=== PATIENT | male | born 1960 | race Caucasian/White ===

== ENCOUNTER → 2017-04-04 09:55 | Outpatient (CLI) | payer OTHER, SELFPAY ==
--- NOTE | 2017-04-04 10:18 | EKG12_ITS ---
Test Reason : PREOP Blood Pressure : / mmHG Vent. Rate : 070 BPM Atrial Rate : 070 BPM P-R Int : 130 ms QRS Dur : 092 ms QT Int : 368 ms P-R-T Axes : 068 001 000 degrees QTc Int : 397 ms Normal sinus rhythm Normal ECG Confirmed by URSZULA LEON, RONNA ([id number]), newspaper photo editor NURYS OCHOA ([id number]) on 04/06/2017 11:29:26 AM Referred By: Loren Gaitan Confirmed By:RONNA SEAMAN MD
[2017-04-04 10:31] LABS: Hematocrit 41.1 % (40-54); Hemoglobin 14.3 g/dl (13.0-16.5); Mean Corp Hgb Conc 34.8 g/gl (32-36); Mean Corpuscular Hgb 31.5 pg (27.0-32.0); Mean Corpuscular Volume 90.5 fL (80-94); Platelet Count 180 K/mm3 (150-450); RBC Distribution Width CV 12.8 % (11.6-14.6); RBC Distribution Width SD 42.1 fl (35.1-43.9); Red Blood Count 4.54 M/mm3 (4.6-6.2); White Blood Count 5.7 K/mm3 (4.4-11.0)
[2017-04-04 10:32] LABS: Scan Indicated on CBC? Y/N NO
[2017-04-04 10:49] LABS: Hemoglobin A1c 7.7 % (4.2-6.3)
[2017-04-04 10:59] LABS: ALB/GLOB Ratio 1.1 RATIO (0.9-2.4); AST(SGOT) 20 U/L (15-37); Alanine Aminotransfer ALT/SGPT 29 U/L (16-61); Albumin, Serum 3.8 g/dL (3.2-5.0); Alkaline Phosphatase 74 U/L (45-117); Anion Gap 6 (5-15); BUN 14 mg/dL (7-18); BUN/Creat Ratio 15.2 RATIO (10-20); Calcium,Total 9.1 mg/dL (8.5-10.1); Chloride 105 mmol/L (98-107); Creatinine, Serum 0.92 mg/dL (0.70-1.30); EST Glomerular Filtration Rate 90 mL/min (>60); Est Glom Filt Rate - Afr Amer 109 mL/min (>60); Globulin 3.4 g/dL (2.2-4.2); Glucose 151 mg/dL (70-110); Potassium 4.7 mmol/L (3.5-5.1); Protein, Total 7.2 g/dL (6.4-8.2); Sodium Level 139 mmol/L (136-145)
== END ==
PROVIDERS: Nurse Practitioner; Family Provider Family Medicine; PCP Family Medicine; Visit Provider Orthopaedic Surgery
DX: Z01.818 Encounter for other preprocedural examination (principal); Z01.810 Encounter for preprocedural cardiovascular examination; E11.9 Type 2 diabetes mellitus without complications
CPT/HCPCS: 36415; 80053; 83036; 85027; 93005

== ENCOUNTER → 2017-06-13 15:47 | Outpatient (CLI) | payer OTHER, SELFPAY ==
[2017-06-13 18:15] LABS: Absolute Lymphocyte Count 2.01 X10^3/ul (0.83-4.51); Absolute Neutrophil Count 2.6 X10^3/uL (2.0-7.7); Basophil# 0.03 X10^3/uL; Basophil% 0.6 % (0-1); Eosinophil# 0.23 X10^3/uL; Eosinophils% 4.2 % (0-5); Hemoglobin 14.3 g/dl (13.0-16.5); Lymphocyte # 2.01 X10^3/ul (4.0); Lymphocyte % 36.9 % (19-41); Mean Corp Hgb Conc 34.9 g/gl (32-36); Mean Corpuscular Hgb 31.1 pg (27.0-32.0); Mean Corpuscular Volume 89.1 fL (80-94); Mean Platelet Vol. 10.3 fl (6.2-12.0); Monocyte# 0.61 X10^3/uL; Monocyte% 11.2 % (0-10); Neutrophil # 2.56 X10^3/uL (2.7-7.7); Neutrophil % 46.9 % (47-70); Platelet Count 202 K/mm3 (150-450); RBC Distribution Width CV 12.8 % (11.6-14.6); RBC Distribution Width SD 41.3 fl (35.1-43.9); White Blood Count 5.5 K/mm3 (4.4-11.0)
[2017-06-13 18:20] LABS: POSITIVE COUNT NO; POSITIVE DIFFERENTIAL NO; POSITIVE MORPHOLOGY NO
[2017-06-13 19:42] LABS: AST(SGOT) 16 U/L (15-37); Alanine Aminotransfer ALT/SGPT 26 U/L (16-61); Albumin, Serum 3.9 g/dL (3.2-5.0); Alkaline Phosphatase 99 U/L (45-117); Bilirubin, Direct 0.12 mg/dL (0.00-0.30); Globulin 3.7 g/dL (2.2-4.2); Protein, Total 7.6 g/dL (6.4-8.2)
[2017-06-15 14:08] LABS: QNTFERON TB Ag Minus Nil Value 0.07 IU/mL (.); QNTFERON TB Mitogen Value > 10.00 IU/mL (.); QNTFERON TB Nil Value 0.03 IU/mL (.)
[2017-06-16 08:42] LABS: QNTIFERON TB Gold Negative (Negative)
== END ==
PROVIDERS: Family Provider Family Medicine; PCP Family Medicine; Visit Provider Dermatology
DX: L40.8 Other psoriasis (principal); Z79.899 Other long term (current) drug therapy
CPT/HCPCS: 36415; 80076; 85025; 86480

== ENCOUNTER → 2017-12-02 10:12 | Outpatient (CLI) | payer OTHER, SELFPAY ==
[2017-12-02 11:46] LABS: Microalbumin,Random Urine 91.4 mg/L (NO RANGE EST.); Microalbumin:Creatinine Ratio 39.7 mg/g CRE (<30 mg/g CRE)
[2017-12-02 11:51] LABS: AST(SGOT) 16 U/L (15-37); Alanine Aminotransfer ALT/SGPT 27 U/L (16-61); Albumin, Serum 3.6 g/dL (3.2-5.0); Alkaline Phosphatase 79 U/L (45-117); Anion Gap 5 (5-15); BUN 12 mg/dL (7-18); BUN/Creat Ratio 12.2 RATIO (10-20); Calcium,Total 8.5 mg/dL (8.5-10.1); Chloride 105 mmol/L (98-107); Cholesterol 213 mg/dL (200); Creatinine, Serum 0.99 mg/dL (0.70-1.30); EST Glomerular Filtration Rate 83 mL/min (>60); Est Glom Filt Rate - Afr Amer 101 mL/min (>60); Globulin 3.5 g/dL (2.2-4.2); Glucose 169 mg/dL (74-106); High Density Lipoprotein 48 mg/dL; Potassium 4.3 mmol/L (3.5-5.1); Protein, Total 7.1 g/dL (6.4-8.2); Sodium Level 141 mmol/L (136-145); Triglycerides 101 mg/dL; Very Low Density Lipoprotein 20 mg/dL (5-40)
[2017-12-02 11:56] LABS: Hemoglobin A1c 7.8 % (4.2-6.3)
== END ==
PROVIDERS: Family Provider Family Medicine; PCP Family Medicine; Referring Provider Nurse Practitioner; Visit Provider Nurse Practitioner
DX: E11.9 Type 2 diabetes mellitus without complications (principal)
CPT/HCPCS: 36415; 80053; 80061; 82043; 82570; 83036

== ENCOUNTER → 2017-12-11 14:38 | Outpatient (CLI) | payer OTHER, SELFPAY ==
--- NOTE | 2017-12-11 14:42 | RAD_ITS ---
STUDY: X-RAY CHEST REASON FOR EXAM: Male, 57 years old. Cold symptoms TECHNIQUE: PA and lateral views of the chest. COMPARISON: December 19, 2016 chest x-ray FINDINGS: There are scattered areas of lucency which may represent underlying emphysematous change. There is a subtle nodular density in the right lower lobe that measures 5 mm. This may represent summation of shadows or possible small nodule. There is minimal lingular atelectasis and/or scarring stable in appearance when compared to prior study. There is no demonstrated pleural abnormality. Normal size heart. Normal mediastinum and jennifer. Normal visualized pulmonary arteries. Normal visualized aortic arch and descending thoracic aorta. Normal visualized thoracic spine. Normal visualized ribs, clavicles, and shoulders. There is no demonstrated abnormality of the visualized soft tissue structures of the upper abdomen. RAD/Chest PA and Lateral IMPRESSION: Interval visualization of 5 mm nodule right lower lobe. No definitive focal consolidation. Findings suggest underlying chronic interstitial lung changes possible chronic obstructive pulmonary disease. Recommend consideration for follow-up noncontrast CT chest. Electronically Signed: Maye Marshall MD at 17:01 EDT Tel , Service support ,
[2017-12-11 15:35] LABS: Absolute Lymphocyte Count 2.49 X10^3/ul (0.83-4.51); Absolute Neutrophil Count 2.7 X10^3/uL (2.0-7.7); Basophil# 0.03 X10^3/uL; Basophil% 0.5 % (0-1); Eosinophil# 0.13 X10^3/uL; Eosinophils% 2.2 % (0-5); Hematocrit 43.9 % (40-54); Hemoglobin 14.7 g/dl (13.0-16.5); Lymphocyte # 2.49 X10^3/ul (4.0); Lymphocyte % 42.2 % (19-41); Mean Corp Hgb Conc 33.5 g/gl (32-36); Mean Corpuscular Hgb 30.6 pg (27.0-32.0); Mean Corpuscular Volume 91.3 fL (80-94); Mean Platelet Vol. 9.9 fl (6.2-12.0); Monocyte# 0.58 X10^3/uL; Monocyte% 9.8 % (0-10); Neutrophil # 2.67 X10^3/uL (2.7-7.7); Neutrophil % 45.3 % (47-70); Platelet Count 165 K/mm3 (150-450); RBC Distribution Width SD 43.1 fl (35.1-43.9); Red Blood Count 4.81 M/mm3 (4.6-6.2); White Blood Count 5.9 K/mm3 (4.4-11.0)
[2017-12-11 15:41] LABS: POSITIVE COUNT NO; POSITIVE DIFFERENTIAL NO; POSITIVE MORPHOLOGY NO
[2017-12-11 15:55] LABS: AST(SGOT) 14 U/L (15-37); Alanine Aminotransfer ALT/SGPT 28 U/L (16-61); Albumin, Serum 3.8 g/dL (3.2-5.0); Alkaline Phosphatase 91 U/L (45-117); Bilirubin, Direct 0.16 mg/dL (0.00-0.30); Globulin 3.8 g/dL (2.2-4.2); Protein, Total 7.6 g/dL (6.4-8.2)
[2017-12-13 20:07] LABS: HCV Quant. RNA PCR HCV Not Detected IU/mL (.)
== END ==
PROVIDERS: Family Provider Family Medicine; PCP Family Medicine; Referring Provider Dermatology; Visit Provider Dermatology
DX: Z79.899 Other long term (current) drug therapy (principal); L40.0 Psoriasis vulgaris; L30.4 Erythema intertrigo
CPT/HCPCS: 36415; 71046; 80076; 85025; 87522

== ENCOUNTER → 2018-04-21 10:10 | Outpatient (CLI) | payer OTHER, SELFPAY ==
[2018-01-31 15:50] VITALS: BMI 32.0
[2018-04-21 10:19] LABS: Bacteria 0 SEEN /hpf (None Seen); Mucous, Urine 0 SEEN /hpf (<or=2+); Red Blood Cells-Urine 0 SEEN /hpf (0-5); Squamous Epithelial Cells - UA 0 SEEN /hpf (0-5); White Blood Cells 0 SEEN /hpf (0-5)
[2018-04-21 11:33] LABS: Hemoglobin A1c 8.8 % (4.2-6.3)
[2018-04-21 11:37] LABS: Microalbumin:Creatinine Ratio 78.6 mg/g CRE (<30 mg/g CRE)
[2018-04-21 11:50] LABS: AST(SGOT) 13 U/L (15-37); Alanine Aminotransfer ALT/SGPT 27 U/L (16-61); Albumin, Serum 3.6 g/dL (3.2-5.0); Alkaline Phosphatase 81 U/L (45-117); Anion Gap 5 (5-15); BUN 12 mg/dL (7-18); BUN/Creat Ratio 12.8 RATIO (10-20); Calcium,Total 8.9 mg/dL (8.5-10.1); Chloride 106 mmol/L (98-107); Cholesterol 209 mg/dL (200); Creatinine, Serum 0.94 mg/dL (0.70-1.30); EST Glomerular Filtration Rate 88 mL/min (>60); Est Glom Filt Rate - Afr Amer 106 mL/min (>60); Globulin 3.5 g/dL (2.2-4.2); Glucose 119 mg/dL (74-106); High Density Lipoprotein 55 mg/dL; Potassium 4.7 mmol/L (3.5-5.1); Protein, Total 7.1 g/dL (6.4-8.2); Sodium Level 142 mmol/L (136-145); Triglycerides 90 mg/dL; Very Low Density Lipoprotein 18 mg/dL (5-40)
[2018-04-21 12:08] LABS: Color, Urine Yellow (Yellow); Glucose, Dipstick Normal (Normal); Ketone-Dipstick Negative (Negative); Leukocyte Esterase-Dipstick Negative /ul (Negative); Nitrite-Dipstick Negative (Negative); Occult Blood-Urine 10 /ul (Negative); Protein-Dipstick 30 mg/dl (Negative); Specific Gravity, Urine 1.015 (1.002-1.030); Urine Bilirubin Dipstick Negative (Negative); Urine Clarity Clear (Clear); Urine Urobilinogen Normal (Normal)
[2018-04-21 12:14] LABS: Yeast-Urine RARE /hpf (None Seen)
== END ==
PROVIDERS: Family Provider Family Medicine; PCP Family Medicine; Referring Provider Nurse Practitioner; Visit Provider Nurse Practitioner
DX: E11.9 Type 2 diabetes mellitus without complications (principal)
CPT/HCPCS: 36415; 80053; 80061; 81001; 82043; 82570; 83036

== ENCOUNTER → 2018-06-08 10:54 | Outpatient (CLI) | payer OTHER, SELFPAY ==
[2018-04-30 15:19] VITALS: BMI 32.0
--- NOTE | 2018-06-08 11:08 | RAD_ITS ---
STUDY: X-RAY CHEST REASON FOR EXAM: Male, 58 years old. Long-term medication therapy TECHNIQUE: PA and lateral views of the chest. COMPARISON: 12/11/2017 FINDINGS: Coarsened interstitial lung markings in the lung bases similar since the prior study. Nodular density in the right lung base evident on the prior exam is not clearly documented on the current study. There is no demonstrated pleural abnormality. Normal size heart. Normal mediastinum and jennifer. Normal visualized pulmonary arteries. Normal visualized aortic arch and descending thoracic aorta. There is demineralization of the osseous structures. Normal visualized ribs, clavicles, and shoulders. There is no demonstrated abnormality of the visualized soft tissue structures of the upper abdomen. RAD/Chest PA and Lateral IMPRESSION: 1. Stable mild fibrotic changes in the lung bases. 2. No airspace consolidation. 3. 5 mm nodule documented on the prior x-ray is not clearly seen on the current exam. Electronically Signed: Travis Singh MD at 10:34 EDT , Service support ,
[2018-06-08 12:38] LABS: Absolute Lymphocyte Count 1.43 X10^3/ul (0.83-4.51); Absolute Neutrophil Count 3.2 X10^3/uL (2.0-7.7); Basophil# 0.01 X10^3/uL; Basophil% 0.2 % (0-1); Eosinophil# 0.06 X10^3/uL; Eosinophils% 1.1 % (0-5); Hematocrit 40.9 % (40-54); Hemoglobin 14.1 g/dl (13.0-16.5); Lymphocyte # 1.43 X10^3/ul (4.0); Mean Corp Hgb Conc 34.5 g/gl (32-36); Mean Corpuscular Hgb 30.8 pg (27.0-32.0); Mean Corpuscular Volume 89.3 fL (80-94); Mean Platelet Vol. 10.2 fl (6.2-12.0); Monocyte# 0.59 X10^3/uL; Monocyte% 11.1 % (0-10); Neutrophil % 60.4 % (47-70); POSITIVE COUNT NO; POSITIVE DIFFERENTIAL NO; POSITIVE MORPHOLOGY NO; Platelet Count 196 K/mm3 (150-450); RBC Distribution Width CV 12.9 % (11.6-14.6); RBC Distribution Width SD 41.9 fl (35.1-43.9); Red Blood Count 4.58 M/mm3 (4.6-6.2); White Blood Count 5.3 K/mm3 (4.4-11.0)
[2018-06-08 12:58] LABS: AST(SGOT) 19 U/L (15-37); Alanine Aminotransfer ALT/SGPT 27 U/L (16-61); Albumin, Serum 3.7 g/dL (3.2-5.0); Alkaline Phosphatase 73 U/L (45-117); Bilirubin, Direct 0.14 mg/dL (0.00-0.30); Globulin 3.1 g/dL (2.2-4.2); Protein, Total 6.8 g/dL (6.4-8.2)
[2018-06-12 20:07] LABS: HCV Quant. RNA PCR HCV Not Detected IU/mL (.); QNTFERON TB Mitogen Value > 10.00 IU/mL (.); QNTFERON TB Nil Value 0.03 IU/mL (.); QNTFERON TB2+ Ag Value 0.13 IU/mL (.)
[2018-06-13 11:23] LABS: QNTIFERON TB Positive Criteria Negative (Negative)
== END ==
PROVIDERS: Family Provider Family Medicine; PCP Family Medicine; Referring Provider Dermatology; Visit Provider Dermatology
DX: Z79.899 Other long term (current) drug therapy (principal); L40.0 Psoriasis vulgaris
CPT/HCPCS: 36415; 71046; 80076; 85025; 86480; 87522

== ENCOUNTER → 2018-11-19 16:50 | Outpatient (CLI) | payer OTHER, SELFPAY ==
[2018-04-30 15:19] VITALS: BMI 32.0
--- NOTE | 2018-11-19 17:02 | EKG12_ITS ---
Test Reason : PRE OP Blood Pressure : / mmHG Vent. Rate : 063 BPM Atrial Rate : 063 BPM P-R Int : 140 ms QRS Dur : 092 ms QT Int : 394 ms P-R-T Axes : 020 000 014 degrees QTc Int : 403 ms Sinus rhythm with occasional Premature ventricular complexes Minimal voltage criteria for LVH, may be normal variant Borderline ECG Confirmed by URSZULA LEON, RONNA ([id number]), video effects editor VILLA AVILEZ ([id number]) on 11/21/2018 1:58:05 PM Referred By: Timi Christian Confirmed By:RONNA SEAMAN MD
[2018-11-19 17:26] LABS: Hematocrit 41.5 % (40-54); Hemoglobin 14.1 g/dL (13.0-16.5); Mean Corpuscular Hgb 31.2 pg (27.0-32.0); Mean Corpuscular Volume 91.8 fL (80-94); Platelet Count 194 K/mm3 (150-450); RBC Distribution Width CV 12.5 % (11.6-14.6); RBC Distribution Width SD 41.9 fl (35.1-43.9); Red Blood Count 4.52 M/mm3 (4.6-6.2); White Blood Count 7.2 K/mm3 (4.4-11.0)
[2018-11-19 18:21] LABS: Anion Gap 4 (5-15); BUN 17 mg/dL (7-18); BUN/Creat Ratio 14.2 RATIO (10-20); Calcium,Total 9.5 mg/dL (8.5-10.1); Chloride 103 mmol/L (98-107); EST Glomerular Filtration Rate 66 mL/min (>60); Est Glom Filt Rate - Afr Amer 80 mL/min (>60); Glucose 126 mg/dL (74-106); Potassium 4.1 mmol/L (3.5-5.1); Sodium Level 136 mmol/L (136-145)
== END ==
PROVIDERS: Orthopaedic Surgery; Family Provider Family Medicine; PCP Family Medicine; Referring Provider Physician Assistant; Visit Provider Physician Assistant
DX: Z01.818 Encounter for other preprocedural examination (principal); Z01.810 Encounter for preprocedural cardiovascular examination
CPT/HCPCS: 36415; 80048; 85027; 93005

== ENCOUNTER → 2018-11-23 15:22 | Outpatient (CLI) | payer OTHER, SELFPAY ==
[2018-04-30 15:19] VITALS: BMI 32.0
== END ==
PROVIDERS: Family Provider Family Medicine; PCP Family Medicine; Referring Provider Orthopaedic Surgery; Visit Provider Orthopaedic Surgery
DX: M65.342 Trigger finger, left ring finger (principal); R22.32 Localized swelling, mass and lump, left upper limb

== ENCOUNTER → 2018-11-26 07:15 | Outpatient (CLI) | payer OTHER, SELFPAY ==
[2018-04-30 15:19] VITALS: BMI 32.0
--- NOTE | 2018-11-23 11:23 | MASS_PTH ---
PATIENT: ANKITA GARCIA LOC: [facility] U#:[id number] AGE/SX: 64/M ROOM: RE11/26/[address]: GILMA Anaya : 1960 BED: DIS: SPEC #: [id number] RECD: 11/23/18 15:13 STATUS: BHARAT YESICA #: [id number] GROVER: 11/23/18 11:[address]: Vasile Sena DEPT: SURGICAL PATHOLOGY RECD BY: Wilmer Gillette ENTERED: 11/26/18 12:16 SP TYPE: Mass OTHR DR: Dr. Solis Harrington, GILMA Bueno Tissues: Hand, NOS Procedures: Surgery Specimen Level IV HEADER OPERATION: Trigger finger release left ring finger, excision of palm mass PRE-OP DIAGNOSIS: Trigger finger with mass left ring finger TISSUE SUBMITTED: Mass left palm MICROSCOPIC DIAGNOSIS Mass of left palm, biopsy: Fibrosis. See comment. AM:cecil 11/27/18 COMMENT The findings may be consistent with focal fibromatosis. Clinical correlation is suggested. MICROSCOPIC DESCRIPTION Slides are reviewed. GROSS DESCRIPTION Received in fixative is one container labeled with the patient's name and designated left palm mass. The specimen consists of two pieces of li soft tissue that in aggregate measure 1 x 0.5 x 0.3 cm. The entire specimen is submitted in one cassette. / SJ:cecil 11/26/18 TC:5 CPT: 54720
[2018-11-26 09:20] LABS: AST(SGOT) 11 U/L (15-37); Alanine Aminotransfer ALT/SGPT 23 U/L (16-61); Albumin, Serum 3.8 g/dL (3.2-5.0); Alkaline Phosphatase 86 U/L (45-117); Anion Gap 7 (5-15); BUN 11 mg/dL (7-18); BUN/Creat Ratio 11.2 RATIO (10-20); Calcium,Total 9.3 mg/dL (8.5-10.1); Chloride 105 mmol/L (98-107); Creatinine, Serum 0.98 mg/dL (0.70-1.30); EST Glomerular Filtration Rate 83 mL/min (>60); Est Glom Filt Rate - Afr Amer 100 mL/min (>60); Globulin 3.8 g/dL (2.2-4.2); Glucose 191 mg/dL (74-106); Protein, Total 7.6 g/dL (6.4-8.2); Sodium Level 140 mmol/L (136-145)
[2018-11-26 09:33] LABS: Hemoglobin A1c 7.4 % (4.2-6.3)
== END ==
LOC: LAB.FUTURE 07:17 → LAB 07:20
PROVIDERS: Family Provider Family Medicine; PCP Family Medicine; Referring Provider Nurse Practitioner; Visit Provider Nurse Practitioner
DX: M65.342 Trigger finger, left ring finger (principal); R22.32 Localized swelling, mass and lump, left upper limb; E11.9 Type 2 diabetes mellitus without complications
CPT/HCPCS: 36415; 80053; 83036; 88305

== ENCOUNTER → 2019-02-14 16:03 | Outpatient (CLI) | payer OTHER, SELFPAY ==
[2018-04-30 15:19] VITALS: BMI 32.0
== END ==
PROVIDERS: Family Provider Family Medicine; PCP Family Medicine; Visit Provider Family Medicine
DX: J06.9 Acute upper respiratory infection, unspecified (principal)
CPT/HCPCS: 87633

== ENCOUNTER → 2019-03-20 15:47 | Outpatient (CLI) | payer OTHER, SELFPAY ==
[2018-04-30 15:19] VITALS: BMI 32.0
[2019-03-20 17:30] LABS: Absolute Lymphocyte Count 1.87 X10^3/uL (0.83-4.51); Basophil# 0.05 X10^3/uL; Basophil% 0.9 % (0-1); Eosinophil# 0.14 X10^3/uL; Eosinophils% 2.5 % (0-5); Hematocrit 37.5 % (40-54); Hemoglobin 12.9 g/dL (13.0-16.5); Lymphocyte # 1.87 X10^3/ul (4.0); Lymphocyte % 33.3 % (19-41); Mean Corp Hgb Conc 34.4 g/dL (32-36); Mean Corpuscular Hgb 31.2 pg (27.0-32.0); Mean Corpuscular Volume 90.8 fL (80-94); Mean Platelet Vol. 9.8 fl (6.2-12.0); Monocyte% 10.7 % (0-10); NRBC Flagged by Analyzer 0 % (0-5); Neutrophil # 2.95 X10^3/uL (2.7-7.7); Neutrophil % 52.4 % (47-70); Platelet Count 201 K/mm3 (150-450); RBC Distribution Width CV 13.3 % (11.6-14.6); RBC Distribution Width SD 42.9 fl (35.1-43.9); Red Blood Count 4.13 M/mm3 (4.6-6.2); White Blood Count 5.6 K/mm3 (4.4-11.0)
[2019-03-20 17:53] LABS: AST(SGOT) 25 U/L (15-37); Alanine Aminotransfer ALT/SGPT 26 U/L (16-61); Albumin, Serum 3.8 g/dL (3.2-5.0); Alkaline Phosphatase 72 U/L (45-117); Anion Gap 3 (5-15); BUN 12 mg/dL (7-18); BUN/Creat Ratio 12.7 RATIO (10-20); Bilirubin, Direct 0.12 mg/dL (0.00-0.30); Calcium,Total 9.2 mg/dL (8.5-10.1); Chloride 108 mmol/L (98-107); Creatinine, Serum 0.94 mg/dL (0.70-1.30); EST Glomerular Filtration Rate 87 mL/min (>60); Est Glom Filt Rate - Afr Amer 105 mL/min (>60); Globulin 3.3 g/dL (2.2-4.2); Glucose 166 mg/dL (74-106); Potassium 3.8 mmol/L (3.5-5.1); Protein, Total 7.1 g/dL (6.4-8.2); Sodium Level 139 mmol/L (136-145)
== END ==
PROVIDERS: PCP Family Medicine; Referring Provider Dermatology; Visit Provider Dermatology
DX: L43.8 Other lichen planus (principal); Z79.899 Other long term (current) drug therapy
CPT/HCPCS: 36415; 80048; 80076; 85025

== ENCOUNTER → 2019-04-20 10:44 | Outpatient (CLI) | payer OTHER, SELFPAY ==
[2018-04-30 15:19] VITALS: BMI 32.0
[2019-04-20 11:08] LABS: Absolute Lymphocyte Count 1.49 X10^3/uL (0.83-4.51); Absolute Neutrophil Count 3.1 X10^3/uL (2.0-7.7); Basophil# 0.04 X10^3/uL; Basophil% 0.7 % (0-1); Eosinophils% 1.9 % (0-5); Hematocrit 42.6 % (40-54); Hemoglobin 14.3 g/dL (13.0-16.5); Lymphocyte # 1.49 X10^3/ul (4.0); Lymphocyte % 27.8 % (19-41); Mean Corp Hgb Conc 33.6 g/dL (32-36); Mean Corpuscular Hgb 31.4 pg (27.0-32.0); Mean Corpuscular Volume 93.6 fL (80-94); Mean Platelet Vol. 9.1 fl (6.2-12.0); Monocyte# 0.62 X10^3/uL; Monocyte% 11.6 % (0-10); NRBC Flagged by Analyzer 0 % (0-5); Neutrophil # 3.09 X10^3/uL (2.7-7.7); Neutrophil % 57.6 % (47-70); Platelet Count 207 K/mm3 (150-450); RBC Distribution Width CV 14.7 % (11.6-14.6); RBC Distribution Width SD 49.9 fl (35.1-43.9); Red Blood Count 4.55 M/mm3 (4.6-6.2); White Blood Count 5.4 K/mm3 (4.4-11.0)
[2019-04-20 11:21] LABS: Color, Urine Yellow (Yellow); Glucose, Dipstick Normal (Normal); Ketone-Dipstick Negative (Negative); Leukocyte Esterase-Dipstick Negative /ul (Negative); Nitrite-Dipstick Negative (Negative); Occult Blood-Urine Negative /ul (Negative); Protein-Dipstick 15 mg/dl (Negative); Specific Gravity, Urine 1.015 (1.002-1.030); Urine Bilirubin Dipstick Negative (Negative); Urine Clarity Clear (Clear); Urine Urobilinogen Normal (Normal)
[2019-04-20 11:26] LABS: Hemoglobin A1c 7.6 % (4.2-6.3)
[2019-04-20 11:28] LABS: Microalbumin,Random Urine 90.4 mg/L (NO RANGE EST.)
[2019-04-20 11:39] LABS: AST(SGOT) 12 U/L (15-37); Alanine Aminotransfer ALT/SGPT 25 U/L (16-61); Albumin, Serum 3.8 g/dL (3.2-5.0); Alkaline Phosphatase 75 U/L (45-117); Anion Gap 1 (5-15); BUN 10 mg/dL (7-18); BUN/Creat Ratio 9.5 RATIO (10-20); Bilirubin, Direct 0.15 mg/dL (0.00-0.30); Calcium,Total 9.2 mg/dL (8.5-10.1); Chloride 110 mmol/L (98-107); Creatinine, Serum 1.05 mg/dL (0.70-1.30); EST Glomerular Filtration Rate 77 mL/min (>60); Est Glom Filt Rate - Afr Amer 93 mL/min (>60); Globulin 3.5 g/dL (2.2-4.2); Glucose 119 mg/dL (74-106); Potassium 4.4 mmol/L (3.5-5.1); Protein, Total 7.3 g/dL (6.4-8.2); Sodium Level 143 mmol/L (136-145)
== END ==
PROVIDERS: Nurse Practitioner; Family Provider Family Medicine; PCP Family Medicine; Referring Provider Dermatology; Visit Provider Dermatology
DX: L43.8 Other lichen planus (principal); E11.9 Type 2 diabetes mellitus without complications; Z79.899 Other long term (current) drug therapy
CPT/HCPCS: 36415; 80048; 80076; 81002; 82043; 83036; 85025

== ENCOUNTER → 2019-07-26 08:19 | Outpatient (CLI) | payer OTHER, SELFPAY ==
[2018-04-30 15:19] VITALS: BMI 32.0
--- NOTE | 2019-07-26 08:57 | RAD_ITS ---
STUDY: X-RAY CHEST REASON FOR EXAM: Male, 59 years old. superintendent terminal drug therapy -- psoriasis vulgaris TECHNIQUE: Frontal and lateral views of the chest. COMPARISON: 06/08/2018 FINDINGS: Coarsened interstitial lung markings in the lung bases similar since the prior study. There is no demonstrated pleural abnormality. Normal size heart. Normal mediastinum and jennifer. Normal visualized pulmonary arteries. Normal visualized aortic arch and descending thoracic aorta. There is demineralization of the osseous structures. Normal visualized ribs, clavicles, and shoulders. There is no demonstrated abnormality of the visualized soft tissue structures of the upper abdomen. RAD/Chest PA and Lateral IMPRESSION: 1. Stable mild fibrotic changes in the lung bases. Electronically Signed: Que Wolff, at 10:12 EDT Tel , Service support ,
[2019-07-26 10:01] LABS: Absolute Lymphocyte Count 1.92 X10^3/uL (0.83-4.51); Absolute Neutrophil Count 3.1 X10^3/uL (2.0-7.7); Basophil# 0.05 X10^3/uL; Basophil% 0.9 % (0-1); Eosinophils% 1.7 % (0-5); Hematocrit 41.4 % (40-54); Hemoglobin 13.8 g/dL (13.0-16.5); Lymphocyte # 1.92 X10^3/ul (4.0); Lymphocyte % 32.9 % (19-41); Mean Corp Hgb Conc 33.3 g/dL (32-36); Mean Corpuscular Hgb 30.8 pg (27.0-32.0); Mean Corpuscular Volume 92.4 fL (80-94); Mean Platelet Vol. 10.7 fl (6.2-12.0); NRBC Flagged by Analyzer 0 % (0-5); Neutrophil # 3.06 X10^3/uL (2.7-7.7); Neutrophil % 52.3 % (47-70); Platelet Count 199 K/mm3 (150-450); RBC Distribution Width CV 12.5 % (11.6-14.6); RBC Distribution Width SD 42.3 fl (35.1-43.9); Red Blood Count 4.48 M/mm3 (4.6-6.2); White Blood Count 5.8 K/mm3 (4.4-11.0)
[2019-07-26 10:20] LABS: AST(SGOT) 13 U/L (15-37); Alanine Aminotransfer ALT/SGPT 23 U/L (16-61); Albumin, Serum 3.8 g/dL (3.2-5.0); Alkaline Phosphatase 76 U/L (45-117); Bilirubin, Direct 0.06 mg/dL (0.00-0.30); Globulin 3.4 g/dL (2.2-4.2); Protein, Total 7.2 g/dL (6.4-8.2)
[2019-07-31 14:08] LABS: QNTFERON TB Mitogen Value > 10.00 IU/mL (.); QNTFERON TB Nil Value 0.04 IU/mL (.); QNTFERON TB1+ Ag Value 0.48 IU/mL (.); QNTFERON TB2+ Ag Value 0.47 IU/mL (.)
[2019-08-01 12:00] LABS: QNTIFERON TB Positive Criteria Positive (Negative)
== END ==
PROVIDERS: PCP Family Medicine; Referring Provider Dermatology; Visit Provider Dermatology
DX: L40.0 Psoriasis vulgaris (principal); L43.8 Other lichen planus; Z79.899 Other long term (current) drug therapy
CPT/HCPCS: 36415; 71046; 80076; 85025; 86480; 87521

== ENCOUNTER → 2019-09-19 16:25 | Outpatient (CLI) | payer OTHER, SELFPAY ==
[2019-09-19 12:57] VITALS: BMI 30.6
[2019-09-19 17:54] LABS: AST(SGOT) 18 U/L (15-37); Alanine Aminotransfer ALT/SGPT 21 U/L (16-61); Albumin, Serum 4.1 g/dL (3.2-5.0); Alkaline Phosphatase 82 U/L (45-117); Bilirubin, Direct 0.12 mg/dL (0.00-0.30); Cholesterol 215 mg/dL (200); Globulin 3.6 g/dL (2.2-4.2); High Density Lipoprotein 52 mg/dL; Protein, Total 7.7 g/dL (6.4-8.2); Triglycerides 117 mg/dL; Very Low Density Lipoprotein 23 mg/dL (5-40)
== END ==
PROVIDERS: PCP Family Medicine; Referring Provider Internal Medicine Cardiovascular Disease; Visit Provider Internal Medicine Cardiovascular Disease
DX: E78.00 Pure hypercholesterolemia, unspecified (principal)
CPT/HCPCS: 36415; 80061; 80076

== ENCOUNTER → 2019-09-26 14:07 | Outpatient (CLI) | payer OTHER, SELFPAY ==
[2019-09-19 12:57] VITALS: BMI 30.6
== END ==
PROVIDERS: PCP Family Medicine; Referring Provider Internal Medicine Cardiovascular Disease; Visit Provider Internal Medicine Cardiovascular Disease
DX: R00.2 Palpitations (principal)
CPT/HCPCS: 93225; 93226

== ENCOUNTER → 2019-09-27 13:45 | Outpatient (CLI) | payer OTHER, SELFPAY ==
[2019-09-19 12:57] VITALS: BMI 30.6
--- NOTE | 2019-09-27 13:46 | ECHOD_ITS ---
Reason For Study: Arrhythmia Procedure This was a 2D Doppler, Color Flow transthoracic echocardiogram. Exam performed in department. Left Ventricle Normal LV size. The estimated ejection fraction is 53 %. Stage 1 diastolic dysfunction. No regional wall motion abnormalities noted. Right Ventricle Normal RV size. Normal systolic function. Atria The left atrium is moderately enlarged. Normal right atrium. Mitral Valve Equivocal mitral valve prolapse. Tricuspid Valve Normal tricuspid valve. Mild tricuspid valve insufficiency. Pulmonary artery systolic pressure is 28 mmHg. Aortic Valve Normal aortic valve. Trisinus/trileaflet aortic valve. Pulmonic Valve Normal pulmonic valve. Mild (1+) pulmonic valve insufficiency. Great Vessels Normal aortic root. The pulmonary artery is normal size. Normal inferior vena cava. Pericardium/Pleural No pericardial effusion. MMode/2D Measurements & Calculations LVIDd: 5.5 cm IVSd: 0.94 cm Ao root diam: 3.3 cm LVIDs: 3.9 cm LVPWd: 1.1 cm RVDd: 3.8 cm FS: 29.2 % LAV(MOD-bp): 95.7 ml LVAd ap4: 31.8 cm2 SV(MOD-sp4): 44.8 ml LAV(MOD-bp) Indexed: 41.8 ml/m2 EDV(MOD-sp4): 104.2 ml LAV(MOD-sp2): 96.7 ml EDV(sp4-el): 104.5 ml LAV(MOD-sp4): 85.4 ml LVAs ap4: 21.9 cm2 ESV(MOD-sp4): 59.5 ml ESV(sp4-el): 61.2 ml EF(MOD-sp4): 42.9 % EF(sp4-el): 41.4 % SV(sp4-el): 43.2 ml LA A4 area: 25.1 cm2 LA dimension(2D): 5.0 cm RA A4 area: 16.2 cm2 Doppler Measurements & Calculations MV E max marito: 52.4 cm/sec Lat Peak E' Marito: 10.0 cm/sec Med Peak E' Marito: 5.8 cm/sec MV A max marito: 61.6 cm/sec E/E' lat: 5.3 E/E' med: 9.0 MV E/A: 0.85 Ao V2 max: 124.1 cm/sec LV V1 max: 104.7 cm/sec PA V2 max: 112.5 cm/sec Ao max P.2 mmHg LV V1 max P.4 mmHg TR max marito: 244.4 cm/sec TR max P.9 mmHg Interpretation Summary Normal LV size. The estimated ejection fraction is 53 %. Stage 1 diastolic dysfunction. The left atrium is moderately enlarged. Mild tricuspid valve insufficiency. Ordering Physician: Clyde Smith Referring Physician: Solis Harrington Performed By: Sylvia Velasquez RDCS
== END ==
PROVIDERS: PCP Family Medicine; Referring Provider Internal Medicine Cardiovascular Disease; Visit Provider Internal Medicine Cardiovascular Disease
DX: I34.1 Nonrheumatic mitral (valve) prolapse (principal); R00.2 Palpitations
CPT/HCPCS: 93306

== ENCOUNTER → 2019-11-28 15:43 | Outpatient (CLI) | payer OTHER, SELFPAY ==
[2019-09-19 12:57] VITALS: BMI 30.6
[2019-11-28 17:02] LABS: Absolute Lymphocyte Count 1.96 X10^3/uL (0.83-4.51); Absolute Neutrophil Count 3.8 X10^3/uL (2.0-7.7); Basophil# 0.07 X10^3/uL; Eosinophil# 0.67 X10^3/uL; Eosinophils% 9.3 % (0-5); Hematocrit 36.6 % (40-54); Hemoglobin 12.4 g/dL (13.0-16.5); Lymphocyte # 1.96 X10^3/ul (4.0); Lymphocyte % 27.3 % (19-41); Mean Corp Hgb Conc 33.9 g/dL (32-36); Mean Corpuscular Volume 94.3 fL (80-94); Mean Platelet Vol. 9.8 fl (6.2-12.0); Monocyte# 0.71 X10^3/uL; Monocyte% 9.9 % (0-10); NRBC Flagged by Analyzer 0 % (0-5); Neutrophil # 3.77 X10^3/uL (2.7-7.7); Neutrophil % 52.4 % (47-70); Platelet Count 233 K/mm3 (150-450); RBC Distribution Width CV 13.1 % (11.6-14.6); RBC Distribution Width SD 44.9 fl (35.1-43.9); Red Blood Count 3.88 M/mm3 (4.6-6.2); White Blood Count 7.2 K/mm3 (4.4-11.0)
== END ==
PROVIDERS: PCP Family Medicine; Visit Provider Internal Medicine Rheumatology
DX: R71.0 Precipitous drop in hematocrit (principal)
CPT/HCPCS: 36415; 85025

== ENCOUNTER → 2020-01-03 09:40 | Outpatient (CLI) | payer OTHER, SELFPAY ==
[2019-09-19 12:57] VITALS: BMI 30.6
[2019-12-27 09:08] VITALS: BMI 29.4
[2020-01-03 13:08] LABS: Absolute Lymphocyte Count 1.77 X10^3/uL (0.83-4.51); Absolute Neutrophil Count 3.2 X10^3/uL (2.0-7.7); Basophil# 0.06 X10^3/uL; Eosinophil# 0.17 X10^3/uL; Eosinophils% 2.9 % (0-5); Hematocrit 43.6 % (40-54); Hemoglobin 14.4 g/dL (13.0-16.5); Lymphocyte # 1.77 X10^3/ul (4.0); Lymphocyte % 30.1 % (19-41); Mean Corpuscular Hgb 31.4 pg (27.0-32.0); Mean Corpuscular Volume 95.2 fL (80-94); Mean Platelet Vol. 10.4 fl (6.2-12.0); Monocyte# 0.67 X10^3/uL; Monocyte% 11.4 % (0-10); NRBC Flagged by Analyzer 0 % (0-5); Neutrophil % 54.3 % (47-70); Platelet Count 213 K/mm3 (150-450); RBC Distribution Width CV 12.6 % (11.6-14.6); RBC Distribution Width SD 43.7 fl (35.1-43.9); Red Blood Count 4.58 M/mm3 (4.6-6.2); White Blood Count 5.9 K/mm3 (4.4-11.0)
[2020-01-03 13:32] LABS: Ferritin 34 ng/mL (26-388); Iron 102 ug/dL (65-175)
== END ==
PROVIDERS: PCP Family Medicine; Visit Provider Family Medicine
DX: D64.9 Anemia, unspecified (principal); D75.89 Other specified diseases of blood and blood-forming organs
CPT/HCPCS: 36415; 82728; 82746; 83540; 85025

== ENCOUNTER → 2020-01-10 15:42 | Outpatient (CLI) | payer OTHER, SELFPAY ==
[2019-12-27 09:08] VITALS: BMI 29.4
[2020-01-10 17:23] LABS: Hematocrit 42.2 % (40-54); Hemoglobin 13.9 g/dL (13.0-16.5); Mean Corp Hgb Conc 32.9 g/dL (32-36); Mean Corpuscular Volume 94.2 fL (80-94); Mean Platelet Vol. 10.2 fl (6.2-12.0); Platelet Count 204 K/mm3 (150-450); RBC Distribution Width CV 12.6 % (11.6-14.6); Red Blood Count 4.48 M/mm3 (4.6-6.2); White Blood Count 7.1 K/mm3 (4.4-11.0)
[2020-01-10 17:46] LABS: Prothrombin Time (Protime)PT. 12.9 SECONDS (11.7-14.9)
[2020-01-10 17:47] LABS: Partial Thromboplast Time 30.4 Seconds (24.1-36.2)
[2020-01-10 18:09] LABS: AST(SGOT) 11 U/L (15-37); Alanine Aminotransfer ALT/SGPT 21 U/L (16-61); Albumin, Serum 3.8 g/dL (3.2-5.0); Alkaline Phosphatase 74 U/L (45-117); Bilirubin, Direct 0.18 mg/dL (0.00-0.30); GGTP 10 U/L (15-85); Globulin 3.3 g/dL (2.2-4.2); Protein, Total 7.1 g/dL (6.4-8.2)
[2020-01-13 16:14] LABS: AFP, Tumor Marker 1.6 ng/mL (0.0-8.3)
== END ==
PROVIDERS: PCP Family Medicine; Referring Provider Internal Medicine Gastroenterology; Visit Provider Internal Medicine Gastroenterology
DX: K74.60 Unspecified cirrhosis of liver (principal); B19.20 Unspecified viral hepatitis C without hepatic coma
CPT/HCPCS: 36415; 80076; 82105; 82977; 85027; 85610; 85730

== ENCOUNTER → 2020-01-20 10:21 | Outpatient (CLI) | payer OTHER, SELFPAY ==
[2019-12-27 09:08] VITALS: BMI 29.4
== END ==
PROVIDERS: PCP Family Medicine; Referring Provider Family Medicine; Visit Provider Family Medicine
DX: Z20.828 Contact with and (suspected) exposure to other viral communicable diseases (principal)
CPT/HCPCS: 87635; C9803; U0003

== ENCOUNTER → 2020-02-24 17:45 | Outpatient (CLI) | payer OTHER, SELFPAY ==
[2019-12-27 09:08] VITALS: BMI 29.4
== END ==
PROVIDERS: PCP Family Medicine; Referring Provider Internal Medicine Gastroenterology; Visit Provider Internal Medicine Gastroenterology
DX: Z11.59 Encounter for screening for other viral diseases (principal)
CPT/HCPCS: 87635; C9803; U0003

== ENCOUNTER → 2020-03-02 07:40 | Outpatient (CLI) | payer OTHER, SELFPAY ==
[2019-12-27 09:08] VITALS: BMI 29.4
--- NOTE | 2020-03-02 07:42 | US_ITS ---
STUDY: ABDOMINAL ULTRASOUND - RIGHT UPPER QUADRANT REASON FOR VISIT: Male, 59 years old. Cirrhosis. TECHNIQUE: Ultrasound evaluation of the right upper quadrant was performed with real-time and static moreno-scale imaging. TECHNICAL QUALITY: Adequate. COMPARISON: CT the abdomen and pelvis, 03/27/2015. FINDINGS: Liver: The liver measures 20.1 cm. There is increased echogenicity consistent with fatty infiltration. The bile ducts are within normal limits. There is hepatic color flow. The direction of portal flow is hepatopetal. There is no demonstrated mass lesion. Gallbladder: Normal distended gallbladder. The gallbladder wall measures 2.9 mm. There is a negative sonographic Bashir''s sign. There is no pericholecystic fluid. There is biliary sludge dependent within the gallbladder. Common Bile Duct (C.B.D.): The common bile duct measures 4.2 mm. Pancreas: Normal size of the head, body and tail of the pancreas. There is normal echogenicity of the pancreas. There is no demonstrated pancreatic mass or cyst. Right Kidney: Normal size of the right kidney. The right kidney measures 11.6 cm. Normal renal cortex. The right cortex measures 2.1 cm. There is a 2.5 x 2.6 x 2.4 cm simple cyst off the upper pole. There is no right hydronephrosis. US/Abdomen Limited IMPRESSION: 1. Enlarged fatty infiltrated liver without mass. 2. Gallbladder sludge without secondary evidence of acute cholecystitis. 3. Simple cyst off the upper pole of the right kidney. No follow-up required. Electronically Signed: Manjeet Eckert DO at 22:04 EST Tel [phone], Service support ,
== END ==
PROVIDERS: PCP Family Medicine; Referring Provider Internal Medicine Gastroenterology; Visit Provider Internal Medicine Gastroenterology
DX: K74.60 Unspecified cirrhosis of liver (principal); B18.2 Chronic viral hepatitis C
CPT/HCPCS: 76705

== ENCOUNTER → 2020-07-22 12:20 | Outpatient (CLI) | payer OTHER, SELFPAY ==
--- NOTE | 2020-07-22 15:33 | NEURO ---
NCS and/or EMG Patient Report Ordering Doctor: Nilay Jiménez DATE OF SERVICE: 07/22/20 Caroline presents for electrodiagnostic testing of the lower limbs. He reports pain in the bottoms of both feet with intermittent numbness. Electrodiagnostic findings: Peroneal motor nerve demonstrates normal distal latency, amplitude and conduction velocity bilaterally. Normal tibial motor response bilaterally. Prolonged tibial F wave noted bilaterally. Prolonged H reflex is are noted bilaterally. Prolonged sural latencies noted bilaterally. Prolonged left superficial peroneal latency. Absent plantar responses. On needle EMG, all muscles tested in the lower limbs show no evidence of denervation with normal motor unit action potentials. Electrodiagnostic impression: This is an abnormal study in the lower limbs. 1. Electrodiagnostic findings suggestive of polyneuropathy, sensory greater than motor. Patient does report history of diabetes, which may be a contributor. 2. No electrodiagnostic evidence is noted for lumbosacral radiculopathy.
== END ==
PROVIDERS: PCP Family Medicine; Referring Provider Podiatrist Foot & Ankle Surgery; Visit Provider Podiatrist Foot & Ankle Surgery
DX: M79.672 Pain in left foot (principal); M79.671 Pain in right foot
CPT/HCPCS: 95886; 95912

== ENCOUNTER → 2020-08-22 09:32 | Outpatient (CLI) | payer OTHER, SELFPAY ==
[2020-08-22 10:26] LABS: Absolute Lymphocyte Count 1.31 X10^3/uL (0.83-4.51); Absolute Neutrophil Count 2.2 X10^3/uL (2.0-7.7); Basophil# 0.04 X10^3/uL; Basophil% 0.9 % (0-1); Eosinophil# 0.12 X10^3/uL; Eosinophils% 2.8 % (0-5); Hematocrit 41.3 % (40-54); Hemoglobin 13.9 g/dL (13.0-16.5); Lymphocyte # 1.31 X10^3/ul (0.83-4.51); Mean Corp Hgb Conc 33.7 g/dL (32-36); Monocyte# 0.51 X10^3/uL; Monocyte% 12.1 % (0-10); NRBC Flagged by Analyzer 0 % (0-5); Neutrophil # 2.24 X10^3/uL (2.7-7.7); Platelet Count 164 K/mm3 (150-450); RBC Distribution Width CV 12.9 % (11.6-14.6); RBC Distribution Width SD 43.3 fl (35.1-43.9); Red Blood Count 4.49 M/mm3 (4.6-6.2); White Blood Count 4.2 K/mm3 (4.4-11.0)
[2020-08-22 10:59] LABS: AST(SGOT) 17 U/L (15-37); Alanine Aminotransfer ALT/SGPT 20 U/L (16-61); Albumin, Serum 3.6 g/dL (3.2-5.0); Alkaline Phosphatase 90 U/L (45-117); Bilirubin, Direct 0.12 mg/dL (0.00-0.30); Cholesterol 182 mg/dL (200); Globulin 3.2 g/dL (2.2-4.2); High Density Lipoprotein 51 mg/dL; Protein, Total 6.8 g/dL (6.4-8.2); Triglycerides 67 mg/dL; Very Low Density Lipoprotein 13 mg/dL (5-40)
[2020-08-22 11:38] LABS: Thyroid Stim Hormone (TSH) 1.06 uIU/mL (0.358-3.74)
[2020-08-24 08:24] LABS: Vitamin B12 254 pg/mL (211-911)
[2020-08-26 04:38] LABS: HCV Quant. RNA PCR HCV Not Detected IU/mL (.); QNTFERON TB Mitogen Value > 10.00 IU/mL (.); QNTFERON TB Nil Value 0.13 IU/mL (.); QNTFERON TB1+ Ag Value 1.28 IU/mL (.)
[2020-08-26 12:00] LABS: QNTIFERON TB Positive Criteria Positive (Negative)
== END ==
PROVIDERS: Dermatology; Internal Medicine Cardiovascular Disease; PCP Family Medicine; Referring Provider Psychiatry & Neurology Neurology; Visit Provider Psychiatry & Neurology Neurology
DX: L40.0 Psoriasis vulgaris (principal); L43.8 Other lichen planus; Z79.899 Other long term (current) drug therapy; G62.9 Polyneuropathy, unspecified; E78.00 Pure hypercholesterolemia, unspecified; E78.5 Hyperlipidemia, unspecified
CPT/HCPCS: 36415; 80061; 80076; 82607; 82746; 82784; 83921; 84165; 84207; 84443; 85025; 86235; 86334; 86480; 87522

== ENCOUNTER → 2020-08-25 15:16 | Outpatient (CLI) | payer OTHER, SELFPAY ==
[2020-09-02 16:02] LABS: VITAMIN B6 18.4 ug/L (5.3-46.7)
== END ==
LOC: LABSPEC 15:25 → LAB 08-26 06:13
PROVIDERS: PCP Family Medicine; Referring Provider Psychiatry & Neurology Neurology; Visit Provider Psychiatry & Neurology Neurology
DX: G62.9 Polyneuropathy, unspecified (principal)
CPT/HCPCS: 84207

== ENCOUNTER → 2020-10-22 15:18 | Outpatient (CLI) | payer OTHER, SELFPAY ==
--- NOTE | 2020-10-22 15:21 | RAD_ITS ---
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 There is no demonstrated pleural abnormality. Normal size heart. Normal mediastinum and jennifre. Normal visualized pulmonary arteries. Normal visualized aortic arch and descending thoracic aorta. There is demineralization of the osseous structures. Normal visualized ribs, clavicles, and shoulders. There is no demonstrated abnormality of the visualized soft tissue structures of the upper abdomen. RAD/Chest PA and Lateral IMPRESSION: No significant change in mild bibasilar fibrotic change. Electronically Signed: Conner Altamirano MD at 7:42 EDT Tel , Service support ,
== END ==
PROVIDERS: PCP Family Medicine; Referring Provider Dermatology; Visit Provider Dermatology
DX: Z79.899 Other long term (current) drug therapy (principal)
CPT/HCPCS: 71046

== ENCOUNTER → 2021-03-03 | Outpatient (CLI) | payer OTHER, SELFPAY | END | disposition home or self-care (01) | LOC: LABSPEC 16:41 | PROVIDERS: PCP Family Medicine; Visit Provider Family Medicine | DX: Z20.828 Contact with and (suspected) exposure to other viral communicable diseases (principal) | CPT/HCPCS: 87635; U0005; U0003 ==

== ENCOUNTER → 2021-09-30 | Outpatient (CLI) | payer OTHER, SELFPAY ==
[2021-09-30 18:29] LABS: AST(SGOT) 15 U/L (15-37); Alanine Aminotransfer ALT/SGPT 19 U/L (16-61); Albumin, Serum 3.8 g/dL (3.2-5.0); Alkaline Phosphatase 74 U/L (45-117); Bilirubin, Direct 0.13 mg/dL (0.00-0.30); Cholesterol 179 mg/dL (200); Globulin 3.2 g/dL (2.2-4.2); High Density Lipoprotein 51 mg/dL; Triglycerides 184 mg/dL; Very Low Density Lipoprotein 37 mg/dL (5-40)
== END | disposition home or self-care (01) ==
LOC: LAB 16:20
PROVIDERS: PCP Family Medicine; Visit Provider Internal Medicine Cardiovascular Disease
DX: E78.00 Pure hypercholesterolemia, unspecified (principal)
CPT/HCPCS: 36415; 80061; 80076

== ENCOUNTER → 2021-11-25 | Outpatient (CLI) | payer OTHER, SELFPAY ==
[2021-11-25 12:54] LABS: Absolute Lymphocyte Count 1.48 X10^3/uL (0.83-4.51); Absolute Neutrophil Count 2.4 X10^3/uL (2.0-7.7); Basophil# 0.04 X10^3/uL; Basophil% 0.9 % (0-1); Eosinophil# 0.11 X10^3/uL; Eosinophils% 2.4 % (0-5); Hemoglobin 13.3 g/dL (13.0-16.5); Lymphocyte # 1.48 X10^3/ul (0.83-4.51); Lymphocyte % 32.7 % (19-41); Mean Corp Hgb Conc 34.1 g/dL (32-36); Mean Corpuscular Hgb 31.4 pg (27.0-32.0); Mean Platelet Vol. 9.9 fl (6.2-12.0); Monocyte# 0.54 X10^3/uL; Monocyte% 11.9 % (0-10); NRBC Flagged by Analyzer 0 % (0-5); Neutrophil # 2.35 X10^3/uL (2.7-7.7); Neutrophil % 51.9 % (47-70); Platelet Count 188 K/mm3 (150-450); RBC Distribution Width CV 13.2 % (11.6-14.6); RBC Distribution Width SD 44.8 fl (35.1-43.9); Red Blood Count 4.24 M/mm3 (4.6-6.2); White Blood Count 4.5 K/mm3 (4.4-11.0)
[2021-11-25 13:17] LABS: Anion Gap 6 (5-15); BUN 13 mg/dL (7-18); BUN/Creat Ratio 13.1 RATIO (10-20); Calcium,Total 9.1 mg/dL (8.5-10.1); Chloride 108 mmol/L (98-107); Creatinine, Serum 0.99 mg/dL (0.70-1.30); EST Glomerular Filtration Rate 81 mL/min (>60); Est Glom Filt Rate - Afr Amer 98 mL/min (>60); Glucose 117 mg/dL (74-106); Potassium 3.8 mmol/L (3.5-5.1); Sodium Level 143 mmol/L (136-145)
== END | disposition home or self-care (01) ==
LOC: PSN 11:58
PROVIDERS: PCP Family Medicine; Visit Provider Physician Assistant Surgical
DX: Z01.810 Encounter for preprocedural cardiovascular examination (principal)
CPT/HCPCS: 36415; 80048; 83036; 85025; 93005

== ENCOUNTER → 2021-11-30 | Outpatient (CLI) | payer OTHER, SELFPAY ==
[2021-11-30 17:43] LABS: Absolute Lymphocyte Count 2.01 X10^3/uL (0.83-4.51); Absolute Neutrophil Count 3.6 X10^3/uL (2.0-7.7); Basophil# 0.05 X10^3/uL; Basophil% 0.8 % (0-1); Eosinophil# 0.12 X10^3/uL; Eosinophils% 1.8 % (0-5); Hematocrit 38.3 % (40-54); Hemoglobin 13.3 g/dL (13.0-16.5); Lymphocyte # 2.01 X10^3/ul (0.83-4.51); Lymphocyte % 30.8 % (19-41); Mean Corp Hgb Conc 34.7 g/dL (32-36); Mean Corpuscular Hgb 31.9 pg (27.0-32.0); Mean Corpuscular Volume 91.8 fL (80-94); Mean Platelet Vol. 9.7 fl (6.2-12.0); Monocyte% 10.7 % (0-10); NRBC Flagged by Analyzer 0 % (0-5); Neutrophil # 3.64 X10^3/uL (2.7-7.7); Neutrophil % 55.7 % (47-70); Platelet Count 203 K/mm3 (150-450); RBC Distribution Width CV 13.3 % (11.6-14.6); Red Blood Count 4.17 M/mm3 (4.6-6.2); White Blood Count 6.5 K/mm3 (4.4-11.0)
[2021-11-30 18:09] LABS: AST(SGOT) 13 U/L (15-37); Alanine Aminotransfer ALT/SGPT 19 U/L (16-61); Albumin, Serum 4.1 g/dL (3.2-5.0); Alkaline Phosphatase 66 U/L (45-117); Bilirubin, Direct 0.13 mg/dL (0.00-0.30); Globulin 3.3 g/dL (2.2-4.2); Protein, Total 7.4 g/dL (6.4-8.2)
[2021-12-02 22:07] LABS: HCV Quant. RNA PCR HCV Not Detected IU/mL (.); QNTFERON TB Mitogen Value > 10.00 IU/mL (.); QNTFERON TB Nil Value 0.14 IU/mL (.); QNTFERON TB1+ Ag Value 0.43 IU/mL (.); QNTFERON TB2+ Ag Value 0.37 IU/mL (.)
[2021-12-03 09:00] LABS: QNTIFERON TB Positive Criteria Negative (Negative)
== END | disposition home or self-care (01) ==
LOC: MTLAB 16:16
PROVIDERS: PCP Family Medicine; Referring Provider Dermatology; Visit Provider Dermatology
DX: L40.0 Psoriasis vulgaris (principal); Z79.899 Other long term (current) drug therapy
CPT/HCPCS: 36415; 80076; 85025; 86480; 87522

== ENCOUNTER → 2021-12-02 | Outpatient (CLI) | payer OTHER, SELFPAY ==
--- NOTE | 2021-12-02 16:38 | STRESSREP ---
Stress Test Report Exercise myocardial perfusion stress test. 61-year-old male with a history of chest pain. Stress protocol: Resting EKG demonstrates normal sinus rhythm with a rate of 75 bpm normal intervals are noted. The patient exercised according to regular Ej protocol for total duration of 6 minutes the maximum heart rate attained was 142 bpm which was 89% of max impacted heart rate the maximum workload was 7 metabolic equivalents. At rest there were no ST or T wave changes noted suggest ischemia and at peak exercise upsloping ST changes were noted with did not meet the criteria for ischemia. No clinical angina was noted. The resting blood pressure was 142/84 with a peak blood pressure 162/62 rate-pressure part was 23,000. Myocardial perfusion protocol. 11.8 mCi of technetium 99m sestamibi was injected at rest. Patient exercised according to regular Ej protocol and at peak exercise 34.3 mCi of technetium 99m sestamibi was injected stress images were obtained stress and rest images were reconstructed and compared in the short axis vertical long and horizontal long axis. Gated images were also obtained to Perfusion SPECT analysis: Review of the stress images demonstrate normal uptake of tracer noted in all areas of the myocardium. The resting images similar demonstrate normal uptake of tracer noted in all areas of the myocardium. No areas of reversibility are noted to suggest ischemia and no previous infarct is noted. Gated SPECT analysis: The gated ejection fraction was 49%. Conclusion: Normal exercise myocardial perfusion stress test with no evidence of ischemia at a moderate workload. Low normal ejection fraction.
== END | disposition home or self-care (01) ==
PROVIDERS: PCP Family Medicine; Referring Provider Internal Medicine Cardiovascular Disease; Visit Provider Internal Medicine Cardiovascular Disease
DX: I25.10 Atherosclerotic heart disease of native coronary artery without angina pectoris (principal); E11.51 Type 2 diabetes mellitus with diabetic peripheral angiopathy without gangrene; E11.65 Type 2 diabetes mellitus with hyperglycemia; I73.9 Peripheral vascular disease, unspecified; Z79.4 Long term (current) use of insulin; R00.2 Palpitations; I34.1 Nonrheumatic mitral (valve) prolapse; I10 Essential (primary) hypertension; E78.5 Hyperlipidemia, unspecified; E53.8 Deficiency of other specified B group vitamins; E66.3 Overweight; Z95.5 Presence of coronary angioplasty implant and graft
CPT/HCPCS: 78452; 93017; A9500; A4216

== ENCOUNTER → 2022-02-16 | Outpatient (CLI) | payer OTHER, SELFPAY | END | disposition home or self-care (01) | LOC: MTLAB 09:24 | PROVIDERS: PCP Family Medicine; Referring Provider Internal Medicine Endocrinology, Diabetes & Metabolism; Visit Provider Internal Medicine Endocrinology, Diabetes & Metabolism | DX: E11.9 Type 2 diabetes mellitus without complications (principal) | CPT/HCPCS: 82043; 82570 ==

== ENCOUNTER → 2022-08-12 | Outpatient (CLI) | payer OTHER, SELFPAY ==
[2022-08-12 09:14] LABS: Hemoglobin A1c 6.2 % (3.8-5.6)
== END | disposition home or self-care (01) ==
LOC: LAB 05:48
PROVIDERS: PCP Family Medicine; Referring Provider Internal Medicine Endocrinology, Diabetes & Metabolism; Visit Provider Internal Medicine Endocrinology, Diabetes & Metabolism
DX: E11.65 Type 2 diabetes mellitus with hyperglycemia (principal); Z79.4 Long term (current) use of insulin
CPT/HCPCS: 36415; 83036

== ENCOUNTER → 2022-09-26 | Outpatient (CLI) | payer OTHER, SELFPAY ==
[2022-09-26 17:37] LABS: PSA,Total - Annual Screen 0.32 ng/mL (0.00-4.00)
== END | disposition home or self-care (01) ==
PROVIDERS: PCP Family Medicine; Referring Provider Urology; Visit Provider Urology
DX: Z12.5 Encounter for screening for malignant neoplasm of prostate (principal)
CPT/HCPCS: 36415; 84153; G0103

== ENCOUNTER → 2022-10-26 | Outpatient (CLI) | payer OTHER, SELFPAY ==
--- NOTE | 2022-10-26 15:03 | RAD_ITS ---
STUDY: X-RAY - LUMBAR SPINE REASON FOR EXAM: Male, 62 years old. Back pain since Monday. TECHNIQUE: 4 August 30, 2013. view(s) of the lumbar spine were obtained. COMPARISON: None FINDINGS: Osteopenia. Normal lumbar lordosis. Normal alignment of the vertebrae. Diffuse mild lower thoracic and lumbosacral facet sclerosis. Preservation of disc spaces with no osteophyte formation. Vascular calcification. RAD/Lumbar Spine 2 or 3 Views IMPRESSION: Stable lumbar spine with no significant abnormality. Electronically Signed: Timi Nevarez MD at 15:25 EDT ,
== END | disposition home or self-care (01) ==
LOC: RAD 14:49
PROVIDERS: PCP Family Medicine; Referring Provider Anesthesiology Pain Medicine; Visit Provider Anesthesiology Pain Medicine
DX: M51.36 Other intervertebral disc degeneration, lumbar region (principal)
CPT/HCPCS: 72100; 72110

== ENCOUNTER → 2022-11-24 | Outpatient (CLI) | payer OTHER, SELFPAY ==
[2022-11-24 15:41] LABS: Absolute Lymphocyte Count 1.72 X10^3/uL (0.83-4.51); Absolute Neutrophil Count 4.3 X10^3/uL (2.0-7.7); Basophil# 0.05 X10^3/uL; Basophil% 0.7 % (0-1); Eosinophil# 0.16 X10^3/uL; Eosinophils% 2.3 % (0-5); Hematocrit 36.3 % (40-54); Hemoglobin 12.9 g/dL (13.0-16.5); Lymphocyte # 1.72 X10^3/ul (0.83-4.51); Lymphocyte % 24.8 % (19-41); Mean Corp Hgb Conc 35.5 g/dL (32-36); Mean Corpuscular Hgb 32.7 pg (27.0-32.0); Mean Corpuscular Volume 91.9 fL (80-94); Mean Platelet Vol. 9.6 fl (6.2-12.0); Monocyte# 0.66 X10^3/uL; Monocyte% 9.5 % (0-10); NRBC Flagged by Analyzer 0 % (0-5); Neutrophil # 4.33 X10^3/uL (2.7-7.7); Neutrophil % 62.6 % (47-70); Platelet Count 186 K/mm3 (150-450); RBC Distribution Width SD 43.4 fl (35.1-43.9); Red Blood Count 3.95 M/mm3 (4.6-6.2); White Blood Count 6.9 K/mm3 (4.4-11.0)
[2022-11-24 16:07] LABS: AST(SGOT) 13 U/L (15-37); Alanine Aminotransfer ALT/SGPT 21 U/L (16-61); Albumin, Serum 3.8 g/dL (3.2-5.0); Alkaline Phosphatase 87 U/L (45-117); Bilirubin, Direct 0.13 mg/dL (0.00-0.30); Protein, Total 6.8 g/dL (6.4-8.2)
[2022-11-28 07:07] LABS: HCV Quant. RNA PCR HCV Not Detected IU/mL (.); QNTFERON TB Mitogen Value > 10.00 IU/mL (.); QNTFERON TB Nil Value 0.05 IU/mL (.); QNTFERON TB1+ Ag Value 0.65 IU/mL (.); QNTFERON TB2+ Ag Value 0.66 IU/mL (.); QNTIFERON TB Positive Criteria Positive (Negative)
== END | disposition home or self-care (01) ==
LOC: LAB 15:23
PROVIDERS: PCP Family Medicine; Referring Provider Dermatology; Visit Provider Dermatology
DX: L40.0 Psoriasis vulgaris (principal); Z79.899 Other long term (current) drug therapy
CPT/HCPCS: 36415; 80076; 85025; 86480; 87522

== ENCOUNTER → 2022-11-29 | Outpatient (CLI) | payer OTHER, SELFPAY ==
--- NOTE | 2022-11-29 16:27 | US_ITS ---
STUDY: RENAL ULTRASOUND - COMPLETE REASON FOR EXAM: Male, 62 years old. NOCTURIA TECHNIQUE: Ultrasound evaluation of the kidneys was performed with real-time and static light-scale imaging. COMPARISON: Ultrasound abdomen March 02, 2020 FINDINGS: RIGHT KIDNEY: Normal location of the right kidney, which is normal in size. The right kidney measures 10.6 x 5.6 x 5.1 cm. There are areas of renal cortical thinning. The renal cortex measures 0.7,- 1.2 cm. There is an exophytic cyst measuring 2.3 x 2.6 x 1.6 cm and a internally located cyst measuring 1.5 x 1.2 cm. There are no right renal calculi. There is no right hydronephrosis. DISTAL RIGHT URETER: There is non-visualization of the distal right ureter. There is no demonstrated right ureterovesical junction calculus. There is a visualized right ureteral jet. LEFT KIDNEY: Normal location of the left kidney, which is normal in size. The left kidney measures 11.1 x 5.0 x 6.1 cm. There is a normal cortex of the left kidney. The renal cortex measures 1.4 cm. There is no left renal mass or cyst. There are no left renal calculi. There is no left hydronephrosis. DISTAL LEFT URETER: There is non-visualization of the distal left ureter. There is no demonstrated left ureterovesical junction calculus. There is a visualized left ureteral jet. BLADDER: The distended urinary bladder has a volume of 169.33 ml. The empty urinary bladder has a volume of 11.5 ml. There is mild wall thickening of the bladder measuring up to 4.5 mm. There is no demonstrated mass within the urinary bladder. There are no demonstrated bladder calculi. US/Kidney and Bladder IMPRESSION: There is a small residual volume on post void. There is visualized mild wall thickening of the bladder. Could consider cystitis. No hydronephrosis. Stable exophytic right renal cyst. Smaller 1.5 cm benign-appearing low attenuating cyst not definitively seen on the prior study. Recommend follow-up study in 6 months to ensure stability. Electronically Signed: Maye Marshall MD at 18:14 EDT ,
== END | disposition home or self-care (01) ==
LOC: US 16:26
PROVIDERS: PCP Family Medicine; Referring Provider Nurse Practitioner; Visit Provider Nurse Practitioner
DX: R35.1 Nocturia (principal)
CPT/HCPCS: 76770

== ENCOUNTER → 2023-01-03 | Outpatient (CLI) | payer OTHER, SELFPAY ==
--- NOTE | 2023-01-03 16:12 | RAD_ITS ---
STUDY: X-RAY CHEST REASON FOR EXAM: Male, 62 years old. PAIN, MEDS TECHNIQUE: Frontal and lateral views of the chest. COMPARISON: October 22, 2020 FINDINGS: The lungs are clear and expanded. There is no demonstrated pleural abnormality. Normal size heart. Normal mediastinum and jennifer. Normal visualized pulmonary arteries. Normal visualized aortic arch and descending thoracic aorta. Normal visualized thoracic spine. Normal visualized ribs, clavicles, and shoulders. There is no demonstrated abnormality of the visualized soft tissue structures of the upper abdomen. RAD/Chest PA and Lateral IMPRESSION: Normal x-ray examination of the chest. Electronically Signed: Eliceo Tidwell MD at 0:11 EDT ,
== END | disposition home or self-care (01) ==
LOC: MTRAD 16:08
PROVIDERS: PCP Family Medicine; Referring Provider Dermatology; Visit Provider Dermatology
DX: Z79.899 Other long term (current) drug therapy (principal)
CPT/HCPCS: 71046

== ENCOUNTER → 2023-04-13 | Outpatient (CLI) | payer OTHER, SELFPAY ==
[2023-04-13 17:22] LABS: Anion Gap 5 (5-15); BUN 19 mg/dL (7-18); Calcium,Total 9.2 mg/dL (8.5-10.1); Chloride 102 mmol/L (98-107); Creatinine, Serum 1.36 mg/dL (0.70-1.30); EST Glomerular Filtration Rate 56 mL/min (>60); Est Glom Filt Rate - Afr Amer 68 mL/min (>60); Glucose 164 mg/dL (74-106); Potassium 4.1 mmol/L (3.5-5.1); Sodium Level 136 mmol/L (136-145)
== END | disposition home or self-care (01) ==
LOC: LAB 15:49
PROVIDERS: PCP Family Medicine; Referring Provider Urology; Visit Provider Urology
DX: R35.1 Nocturia (principal)
CPT/HCPCS: 36415; 80048

== ENCOUNTER → 2023-09-01 | Outpatient (CLI) | payer OTHER, SELFPAY ==
[2023-09-01 10:54] LABS: Creatinine, Serum 1.21 mg/dL (0.70-1.30); EST Glomerular Filtration Rate 64 mL/min (>60); Est Glom Filt Rate - Afr Amer 78 mL/min (>60)
== END | disposition home or self-care (01) ==
PROVIDERS: PCP Family Medicine; Referring Provider Internal Medicine Rheumatology; Visit Provider Internal Medicine Rheumatology
DX: R74.8 Abnormal levels of other serum enzymes (principal)
CPT/HCPCS: 36415; 82565

== ENCOUNTER → 2023-10-07 | Outpatient (CLI) | payer OTHER, SELFPAY ==
--- NOTE | 2023-10-07 10:00 | CT_ITS ---
EXAM: CT HEAD WITHOUT INTRAVENOUS CONTRAST CLINICAL INDICATION: DIZZINESS TECHNIQUE: Multiple axial images were obtained of the head without intravenous contrast. CTDIvol = ( 44.99 ) mGy, DLP = ( 846.73 ) mGycm This CT exam was performed using one or more of the following dose reduction techniques: automated exposure control, adjustment of the mA and/or kV according to patient size, and/or use of iterative reconstruction technique. COMPARISON: No relevant prior studies available. FINDINGS: BRAIN AND EXTRA-AXIAL SPACES: Unremarkable. No intra- or extra-axial hemorrhage. No evidence of acute infarct. No intracranial mass or mass effect. There is preservation of the moreno/white matter interface. Posterior fossa structures are unremarkable. Ventricles are appropriate for age. No hydrocephalus. Basal cisterns are patent. BONES/JOINTS: Unremarkable. No discrete lytic or blastic abnormalities. SINUSES: Unremarkable as visualized. Clear. MASTOID AIR CELLS: Unremarkable. Clear. ORBITS: Visualized globes, extraocular muscles, optic nerves and retrobulbar fat appear unremarkable. CT/Brain/Head without Contrast IMPRESSION: Negative head/brain CT without intravenous contrast. Electronically Signed: Paul Simons MD at 1:36 EDT ,
[2023-10-07 10:46] LABS: Microalbumin,Random Urine 11.5 mg/L (NO RANGE EST.); Microalbumin:Creatinine Ratio 7.8 mg/g CRE (<30 mg/g CRE)
[2023-10-07 11:00] LABS: Cholesterol 174 mg/dL (200); High Density Lipoprotein 54 mg/dL; Triglycerides 99 mg/dL; Very Low Density Lipoprotein 20 mg/dL (5-40)
[2023-10-09 08:02] LABS: Vitamin D,25 Hydroxy 35.2 ng/mL
== END | disposition home or self-care (01) ==
PROVIDERS: Nurse Practitioner Family; PCP Family Medicine; Referring Provider Family Medicine; Visit Provider Family Medicine
DX: R42 Dizziness and giddiness (principal); E11.65 Type 2 diabetes mellitus with hyperglycemia; Z79.4 Long term (current) use of insulin; R51.9 Headache, unspecified
CPT/HCPCS: 36415; 70450; 80061; 82043; 82306; 82570; 84443

== ENCOUNTER → 2024-01-12 | Outpatient (CLI) | payer OTHER, SELFPAY ==
[2024-01-12 15:17] LABS: Absolute Neutrophil Count 5.4 X10^3/uL (2.0-7.7); Basophil# 0.07 X10^3/uL; Basophil% 0.8 % (0-1); Eosinophil# 0.15 X10^3/uL; Eosinophils% 1.8 % (0-5); Hematocrit 40.3 % (40-54); Lymphocyte % 22.6 % (19-41); Mean Corp Hgb Conc 34.7 g/dL (32-36); Mean Corpuscular Hgb 31.5 pg (27.0-32.0); Mean Corpuscular Volume 90.6 fL (80-94); Mean Platelet Vol. 10.2 fl (6.2-12.0); Monocyte# 0.84 X10^3/uL; NRBC Flagged by Analyzer 0 % (0-5); Neutrophil # 5.42 X10^3/uL (2.7-7.7); Neutrophil % 64.6 % (47-70); Platelet Count 178 K/mm3 (150-450); RBC Distribution Width CV 12.9 % (11.6-14.6); RBC Distribution Width SD 42.1 fl (35.1-43.9); Red Blood Count 4.45 M/mm3 (4.6-6.2); White Blood Count 8.4 K/mm3 (4.4-11.0)
[2024-01-12 15:39] LABS: AST(SGOT) 12 U/L (15-37); Alanine Aminotransfer ALT/SGPT 17 U/L (16-61)
[2024-01-16 09:08] LABS: HCV Quant. RNA PCR HCV Not Detected IU/mL (.); QNTFERON TB Mitogen Value > 10.00 IU/mL (.); QNTFERON TB Nil Value 0.01 IU/mL (.); QNTFERON TB1+ Ag Value 0.07 IU/mL (.); QNTFERON TB2+ Ag Value 0.08 IU/mL (.); QNTIFERON TB Positive Criteria Negative (Negative)
== END | disposition home or self-care (01) ==
LOC: MTLAB 12:47
PROVIDERS: PCP Family Medicine; Referring Provider Dermatology; Visit Provider Dermatology
DX: L40.0 Psoriasis vulgaris (principal); L94.2 Calcinosis cutis; L85.3 Xerosis cutis; Z79.899 Other long term (current) drug therapy
CPT/HCPCS: 36415; 71046; 84450; 84460; 85025; 86480; 87522

== ENCOUNTER → 2024-06-21 | Outpatient (CLI) | payer OTHER, SELFPAY ==
[2024-06-21 10:44] LABS: AST(SGOT) 17 U/L (<=37); Alanine Aminotransfer ALT/SGPT 10 U/L (<=46); Albumin, Serum 4.2 g/dL (3.4-4.8); Alkaline Phosphatase 91 U/L (40-129); Bilirubin, Direct 0.39 mg/dL (0.00-0.30); Cholesterol 183 mg/dL (<=200); High Density Lipoprotein 50 mg/dL; Low Density Lipoprotein Calc. 115 mg/dL; Protein, Total 7.2 g/dL (5.9-8.4); Total Bilirubin 0.97 mg/dL (0.00-1.30); Triglycerides 91 mg/dL; Very Low Density Lipoprotein 18 mg/dL (5-40); cholesterol:hdl ratio screen 3.65
== END | disposition home or self-care (01) ==
LOC: LAB 09:29
PROVIDERS: PCP Family Medicine; Referring Provider Nurse Practitioner Gerontology; Visit Provider Nurse Practitioner Gerontology
DX: E78.5 Hyperlipidemia, unspecified (principal)
CPT/HCPCS: 36415; 80061; 80076

== ENCOUNTER → 2025-01-10 | Outpatient (CLI) | payer OTHER, SELFPAY ==
--- NOTE | 2025-01-10 08:31 | RAD_ITS ---
PROCEDURE: CHEST PA AND LATERAL 01/10/2025 REASON FOR EXAM: SKIN/ PAIN TECHNIQUE: Procedure Code: RADCXR Modality: DX Procedure: CHEST PA AND LATERAL COMPARISON: Chest x-ray of 01/12/2024 RAD/Chest PA and Lateral IMPRESSION: Prior coronary artery stenting. Extensive chronic lung changes are again seen, similar to the prior study. No definite pulmonary edema is seen. No focal infiltrate is evident. No pleural effusion or pneumothorax is evident. The cardiomediastinal silhouette is stable, without evidence of cardiomegaly. Mild degenerative changes of the thoracic spine are seen. No acute osseous change is seen. No evidence of active disease. Reading Location: [place] [id number]
--- OUTSIDE RECORDS SUMMARY | 2025-01-10 08:49 | XMS RPT_ITS | CCD ---
Author Organization [facility] Care Team Providers Care After School Caregiver Name Role Phone Sherif Gaitan NP Unavailable Dr. Solis Harrington Primary Care Provider [phone] Dr. Solis Harrington Referring Provider [phone] Dr. Clyde Smith Attending Provider [phone] Clyde Smith Other Provider MD Clyde Smith Referring Provider Unavailable Dr. Solis Harrington Primary Care Provider [phone] Dr. Erick Landaverde Attending Provider Erika ORTEGA PA-C Ray Referring Provider [phone] Clyde Smith Attending Provider [phone] Clyde Smith Other Provider MD Clyde Smith Referring Provider Unavailable Dr. Solis Harrington Referring Provider [phone] Lei Vasquez Attending Provider [phone] Dr. Solis Harrington Primary Care Provider [phone] Dr. Solis Harrington Referring Provider [phone] Lei Vasquez Attending Provider [phone] Dr. Solis Harrington Primary Care Provider [phone] Dr. Solis Harrington Referring Provider [phone] GILMA Mcmahan NP Attending Provider SHERIF CROOK Primary Care Physician CLAIR GERMAN MD Attending Unavailable SHERIF CROOK Primary Care Unavail able Dr. Solis Harrington DO Primary Care Provider [phone] Patty Marie Attending Provider [phone] Patty Marie Referring Provider Dr. Solis Harrington DO Referring Provider Dr. Lei Vasquez MD Attending Provider [phone] Lei Vasquez Attending Unavailable Solis Harrington Primary Care Unavailable Solis Harrington Referring Unavailable Patty Mcmahan NP Attending Unavailable Patty Mcmahan NP Referring Unavailable Solis Harrington Primary Care Unavailable Mat Nance Attending Unavailable Mat Nance Referring Unavailable Solis Harrington Primary Care Unavailable Martir ORTEGA, Patty Attending Unavailable Len, Solis Primary Care Unavailable Len, Solis Referring Unavailable Len, Solis Primary Care Unavailable Lei Vasquez Attending Unavailable Solis Harrington Referring Unavailable Allergies Allergy Classification Reported Allergen(s) Allergy Type Date of Onset Reaction(s) Facility (1 source) Adrenergic Beta-Antagonists drug allergy 07-06-19 13 rage [facility] Work Phone: (12 sources) aspirin; Translations: [aspirin] Drug Allergy 10-01-19 22 hives, Rash [facility] Work Phone: (1 source) colestipol Drug Allergy 10-30-19 11 Skin rash [facility] Work Phone: (1 source) ezetimibe Drug Allergy 10-30-19 11 Skin rash [facility] Work Phone: (1 source) ezetimibe / simvastatin Drug Allergy 10-30-19 11 Myalgias [facility] Work Phone: (1 source) gabapentin Drug Allergy 05-12-19 17 [facility] Work Phone: (11 sources) hydroCHLOROthiaz madeleine; Translations: [hydrochlorothia zide] Drug Allergy 10-07-19 17 leg cramps, Unknown [facility] Work Phone: (11 sources) ibuprofen; Translations: [ibuprofen] Drug Allergy 10-30-19 11 Rash [facility] Work Phone: (1 source) niacin Drug Allergy 10-30-19 11 Skin rash [facility] Work Phone: (1 source) rosuvastatin Drug Allergy 10-30-19 11 Myalgias [facility] Work Phone: (9 sources) Colestipol Drug Allergy 10-01-19 22 myalgia [facility] (9 sources) ezetimibe Drug Allergy 10-01-19 22 myalgia [facility] (10 sources) gabapentin; Translations: [gabapentin] Drug Allergy 10-01-19 22 Unknown [facility] (9 sources) Niacin Drug Allergy 10-01-19 22 myalgia [facility] (9 sources) rosuvastatin Drug Allergy 10-01-19 22 myalgia [facility] (9 sources) Simvastatin Drug Allergy 10-01-19 [facility] (10 sources) Beta-Blockers (Beta-Adrenergic Bloc; Translations: [Beta-Blockers (Beta-Adrenergic Bloc] Propensity to adverse reactions 10-01-19 Other [facility] Comment on above: ANXIOUS/ ANGRY (1 source) Doxycycline; Translations: [doxycycline] Drug Allergy [facility] (1 source) HMG-CoA reductase inhibitor; Translations: [statins] Drug allergy too much pain [facility] (1 source) Naproxen; Translations: [naproxen] Drug Allergy Rash [facility] (1 source) Colestipol Drug Allergy 10-19-19 [facility] (1 source) ezetimibe Drug Allergy 10-19-19 [facility] (1 source) gabapentin Drug Allergy 10-19-19 [facility] (1 source) Niacin Drug Allergy 10-19-19 [facility] (1 source) rosuvastatin Drug Allergy 10-19-19 [facility] (1 source) Simvastatin Drug Allergy 10-19-19 [facility] Medications Current Medications Medication Drug Class(es) Dates Sig (Normalized) Sig (Original) amLODIPine 10 mg oral tablet (20 sources) Dihydropyridine Calcium Channel Della Start: 06-14-2024 take 1 tablet by mouth once daily Amlodipine 10 mg tablet Active 10 mg PO daily June 14, 2024 12:00am Start: 04-27-2018 End: 04-05-2024 take 1 tablet by mouth once daily Amlodipine 10 mg tablet Discontinued 10 mg PO DAILY 30 0 October 24, 2022 11:08am March 31, 2023 4:40pm awaiting mail order RX, pt almost out. Cyanocobalamin (Vitamin B-12) 1,000 mcg/mL solution (1 source) Start: 10-18-2024 Cyanocobalamin (Vitamin B-12) 1,000 mcg/mL solution Active ug SC October 18, 2024 12:00am Dulaglutide (20 sources) GLP-1 Receptor Agonist Start: 10-18-2024 Dulaglutide (Trulici ty) 4.5 mg/0.5 mL pen injector Active 4.5 mg SC EVERY WEEK 6 October 18, 2024 10:13am Start: 08-15-2024 End: 10-18-2024 Dulaglutide (Trulicity) 4.5 mg/0.5 mL pen injector Discontinued 4.5 mg SC EVERY WEEK 6 August 15, 2024 2:12pm October 18, 2024 10:14am Start: 05-09-2024 End: 08-15-2024 Dulaglutide (Trulicity) 4.5 mg/0.5 mL pen injector Discontinued 4.5 mg SC EVERY WEEK 6 May 09, 2024 1:00am August 15, 2024 2:12pm Start: 12-15-2023 End: 05-09-2024 Dulaglutide (Trulicity) 3 mg /0.5 mL pen injector Discontinued 3 mg SC EVERY WEEK 6 December 15, 2023 1:00pm May 09, 2024 10:05am Start: 12-02-2023 End: 12-15-2023 Dulaglutide (Trulicity) 3 mg /0.5 mL pen injector Discontinued 3 mg SC EVERY WEEK 6 December 02, 2023 4:40pm December 15, 2023 1:00pm Start: 09-22-2023 End: 12-02-2023 Dulaglutide (Trulicity) 3 mg /0.5 mL pen injector Discontinued 3 mg SC EVERY WEEK 6 September 22, 2023 2:13pm December 02, 2023 4:41pm Start: 05-30-2023 End: 09-22-2023 Dulaglutide (Trulicity) 3 mg /0.5 mL pen injector Discontinued 3 mg SC EVERY WEEK 6 3 May 30, 2023 10:24am September 22, 2023 2:14pm Start: 03-13-2023 End: 05-02-2023 Dulaglutide (Trulicity) 1.5 mg/0.5 mL pen injector Discontinued 1.5 mg SC EVERY WEEK 2 3 March 13, 2023 1:00am May 02, 2023 4:47pm to be used in case of unavailabilty of higher dose. Start: 08-15-2022 End: 05-30-2023 Dulaglutide (Trulicity) 3 mg /0.5 mL pen injector Discontinued 3 mg SC EVERY WEEK 6 3 August 15, 2022 12:00am May 30, 2023 10:25am Start: 08-15-2022 Dulaglutide (T rulicity) 3 mg/0.5 mL pen injector Active 3 MG SC EVERY WEEK 6 August 14, 2022 11:00pm Start: 08-15-2022 Dulaglutide (T rulicity) 3 mg/0.5 mL pen injector Active 3 MG SC EVERY WEEK 6 August 15, 2022 12:00am Start: 12-31-2020 End: 08-15-2022 Dulaglutide (Trulicity) 1.5 mg/0.5 mL pen injector Discontinued 1.5 mg SC EVERY WEEK 2 August 17, 2021 9:02am February 07, 2022 4:55pm Start: 10-26-2020 End: 12-31-2020 Dulaglutide (Trulicity) 0.75 mg/0.5 mL pen injector Discontinued 0.75 mg SC EVERY WEEK 2 3 October 26, 2020 12:00am December 31, 2020 3:30pm hydroCHLOROthiazide 25 mg oral tablet (5 sources) Thiazide Diuretic Start: 01-17-2020 hydroCHLOROthiazide 25 mg oral tablet Dose : 25 mg = 1 tab(s), Oral, qDay, 0 Refill(s) Start Date: 01/17/20 Status: Ordered Start: 08-11-2016 End: 10-06-2016 take 1 tablet by mouth once daily HYDROCHLOROTHIAZIDE 25 MG TABS One tablet by mouth daily HYDROCHLOROTHIAZIDE [id number] Clyde Smith MD Start: 03-10-2015 End: 03-17-2015 take 1 tablet by mouth once daily HYDROCHLOROTHIAZIDE 12.5 MG TABS One tablet by mouth daily HYDROCHLOROTHIAZIDE [id number] Dana Miguel PA-C hydroxychloroquine sulfate 200 mg oral tablet (12 sources) Antirheumatic Agent Start: 01-17-2020 take 1 tablet by mouth once daily Hydroxychloroquine (Plaquenil) 200 mg tablet Active 200 mg PO DAILY 1 April 27, 2020 1:00am Start: 03-13-2014 End: 03-10-2015 take 1 tablet by mouth once daily HYDROXYCHLOROQUINE SULFATE 200 MG TABS One tablet by mouth daily HYDROXYCHLOROQUINE SULFATE [id number] Dana iMguel PA-C metFORMIN hydrochloride 1000 mg oral tablet (20 sources) Biguanide Start: 10-24-2018 End: 10-18-2024 take 1 tablet by mouth once daily Metformin 1,000 mg tablet Active 1000 mg PO DAILY 90 October 18, 2024 10:13am Type 2 diabetes mellitus without complications Start: 05-09-2016 End: 05-11-2016 take 2 tablets by mouth in the morning, then take 2 tablets by mouth in the evening GLUCOPHAGE 500 MG TABS Take two tablets PO in the morning, and two tablets PO in the evening, METFORMIN HCL [id number] Sherif Gaitan NP Start: 10-29-2010 End: 03-31-2023 take 1 tablet by mouth twice daily at mealtime Metformin 1,000 mg tablet Discontinued 1000 mg PO TWICE DAILY WITH MEALS 180 October 25, 2021 8:55am February 07, 2022 4:55pm Type 2 diabetes mellitus without complications ramipril 10 mg oral capsule (20 sources) Angiotensin Converting Enzyme Inhibitor Start: 08-11-2016 End: 06-14-2024 take 1 capsule by mouth once daily Ramipril 10 mg capsule Active 10 mg PO DAILY 90 June 14, 2024 8:43am Start: 07-18-2011 take 1 tablet by fausto th once daily ALTACE 5 MG CAPS One tablet by mouth daily RAMIPRIL [id number] Clyde Smith MD Start: 10-29-2010 take 1 tablet by fausto once daily ALTACE 2.5 MG CAPS One tablet by mouth daily RAMIPRIL [id number] Soledad Hickey sertraline 50 mg oral tablet (12 sources) Serotonin Reuptake Inhibitor Start: 10-04-2023 Sertraline 50 mg tablet Active 25 mg PO DAILY October 04, 2023 3:52pm Start: 10-29-2010 End: 10-04-2023 take 1 tablet by mouth once daily Sertraline 50 MG tablet Discontinued 50 mg PO DAILY August 11, 2016 12:00am October 04, 2023 3:52pm traMADol hydrochloride 50 mg oral tablet (11 sources) Opioid Agonist Start: 11-27-2018 traMADol 50 mg oral tablet Dose : 25 mg = 0.5 tab(s), Oral, qDay, 0 Refill(s) Start Date: 11/27/18 Status: Ordered Start: 08-11-2016 Tramadol 50 MG tablet Active 25 mg PO EVERY 4 HOURS NEEDED as needed for Pain August 11, 2016 12:00am Start: 08-11-2016 take 25 mg by mouth every four hours as needed Tramadol Active 25 MG PO EVERY 4 HOURS NEEDED August 10, 2016 11:00pm TRAMADOL HCL 50 MG TABS Take one half tab as needed. TRAMADOL HCL [id number] Sherif Gaitan TECHNICAL SALES SUPPORT MANAGER 1 ml ustekinumab 90 mg/ml prefilled syringe (20 sources) Start: 04-26-2021 Ustekinumab Ac tive 90 MG SC Q3M April 26, 2021 3:32pm Start: 09-19-2019 End: 04-26-2021 Ustekinumab Discontinued 90 MG SC every 3 weeks September 19, 2019 2:33pm April 26, 2021 3:33pm Start: 11-27-2018 inject 1 mL by subcu taneous injection every three months Stelara PFS 90 mg/mL subcutaneous solution Dose : 90 mg = 1 mL, Subcutaneous, q3mo, # 1 mL, 0 Refill(s) Start Date: 11/27/18 Status: Ordered Start: 08-11-2016 End: 04-26-2021 Ustekinumab 90 mg/mL syringe Active 90 mg SC Q3M April 26, 2021 4:32pm Start: 08-11-2016 End: 09-19-2019 Ustekinumab Discontinued 90 MG SQ DIRECTED August 10, 2016 11:00pm September 19, 2019 2:34pm Start: 09-15-2015 STELARA 45 MG/ 0.5ML SOSY sq every 3 months for psoriasis USTEKINUMAB [id number] Clyde Smith MD Start: 09-15-2015 take 1 tablet by mouth once [place] STELARA 45 MG/0.5ML SOSY One tablet by mouth daily USTEKINUMAB [id number] Clyde Smith MD Completed/Discontinued Medications Medication Drug Class(es) Dates Sig (Normalized) Sig (Original) amoxicillin 500 mg oral tablet (1 source) Penicillin-class Antibacterial Start: 10-29-2010 take 4 tablets by mouth every hour AMOXICILLIN 500 MG TABS 4 tablets by mouth 1 hr prior to procedure AMOXICILLIN [id number] Soledad Hickey aspirin 81 mg oral tablet (2 sources) Nonsteroidal Anti-inflammatory Drug Start: 10-29-2010 End: 01-24-2011 take 1 tablet by mouth once daily ASPIRIN 81 MG TABS One tablet by mouth daily ASPIRIN [id number] Patric Colon MD bempedoic acid 180 mg oral tablet (9 sources) Start: 04-27-2020 End: 09-30-2021 take 1 tablet by mouth once daily Bempedoic Acid (Nexletol) 180 mg tablet Discontinued 180 mg PO DAILY 02 09April 27, 2020 1:00am September 30, 2021 4:05pm CINNAMON CAPS (2 sources) Non-Standardized Food Allergenic Extract Start: 09-02-2014 End: 09-15-2015 take 1 tablet by mouth once daily CINNAMON CAPS One tablet by mouth daily CINNAMON CAPS [id number] Clyde Smith MD Start: 09-02-2014 take 1 tablet by fausto th once daily CINNAMON CAPS One tablet by mouth daily CINNAMON CAPS [id number] Clyde Smith MD clobetasol propionate 0.5 mg/ml topical cream (2 sources) Corticosteroid Start: 07-05-2012 End: 03-22-2016 CLOBETASOL PROPIONATE 0.05 % CREA Apply topically as directed CLOBETASOL PROPIONATE [id number] Clyde Smith MD desmopressin acetate 0.1 mg oral tablet (1 source) Vasopressin Analog, Factor VIII Activator Start: 05-02-2023 End: 10-04-2023 take 1 tablet by mouth at bedtime Desmopressin 0.1 mg tablet Discontinued 0.1 mg PO AT BEDTIME May 02, 2023 1:00am October 04, 2023 3:51pm desoximetasone 0.5 mg/ml topical cream (2 sources) Corticosteroid Start: 08-13-2013 End: 03-22-2016 DESOXIMETASONE 0.05 % CREA apply topically as directed DESOXIMETASONE [id number] Dana Miguel PACydneyC DULoxetine 30 mg delayed release oral capsule (9 sources) Serotonin and Norepinephrine Reuptake Inhibitor Start: 10-26-2020 End: 03-31-2023 take 1 capsule by mouth once daily Duloxetine 30 mg capsule,delayed release(DR/EC) Discontinued 30 mg PO DAILY October 26, 2020 12:00am March 31, 2023 4:18pm econazole nitrate 10 mg/ml topical cream (9 sources) Azole Antifungal Start: 04-27-2020 End: 09-30-2021 Econazole Nitrate 1 % cream Discontinued g TOPICAL April 27, 2020 1:00am September 30, 2021 4:04pm Start: 04-27-2020 End: 09-30-2021 Econazole Discontinued GM TO PICAL April 27, 2020 12:00am September 30, 2021 3:04pm empagliflozin 25 mg oral tablet (1 source) Sodium-Glucose Cotransporter 2 Inhibitor Start: 04-05-2024 End: 06-14-2024 take 1 tablet by mouth once daily in the morning Empagliflozin (Jardiance) 25 mg tablet Discontinued 25 mg PO EVERY MORNING 30 April 05, 2024 1:00am June 14, 2024 8:32am esomeprazole 40 mg delayed release oral capsule (2 sources) Proton Pump Inhibitor Start: 10-29-2010 End: 01-24-2011 take 1 tablet by mouth once daily NEXIUM 40 MG CPDR One tablet by mouth daily ESOMEPRAZOLE MAGNESIUM [id number] Soledad Hickey 1 ml evolocumab 140 mg/ml auto-injector (9 sources) PCSK9 Inhibitor Start: 09-21-2020 End: 09-30-2021 Evolocumab (Repatha Sureclick) 140 mg/mL pen injector Discontinued 140 mg SC every 2 weeks 2 September 21, 2020 12:00am September 30, 2021 4:03pm Flash Glucose Scanning Derwent (Freestyle Lorne 14 Day Derwent) misc (18 sources) Start: 04-05-2018 End: 08-23-2019 Flash Glucose Scanning Derwent (Freestyle Lorne 14 Day Derwent) misc Discontinued 0 .ROUTE .MEDSUPPLY 1 0 April 05, 2018 2:44pm August 23, 2019 9:17am Type 2 diabetes mellitus without complications e11.9 use to moniter BG via sensor on back of arm Start: 04-05-2018 End: 08-23-2019 Flash Glucose Scanning Reade r (Freestyle Lorne 14 Day Derwent) misc Discontinued 0 .ROUTE .MEDSUPPLY 1 April 05, 2018 1:44pm August 23, 2019 8:17am use to moniter BG via sensor on back of arm Start: 04-05-2018 End: 08-23-2019 Flash Glucose Scanning Reade r (Freestyle Lorne 14 Day Derwent) misc Discontinued 0 .ROUTE .MEDSUPPLY 1 April 05, 2018 2:44pm August 23, 2019 9:17am use to moniter BG via sensor on back of arm Start: 04-05-2018 End: 04-05-2018 Flash Glucose Scanning Reade r (Freestyle Lorne 14 Day Derwent) misc Discontinued 0 .ROUTE .MEDSUPPLY 1 0 April 05, 2018 1:00am April 05, 2018 2:44pm Type 2 diabetes mellitus without complications e11.9 use to moniter BG via sensor on back of arm Start: 04-05-2018 End: 04-05-2018 Flash Glucose Scanning Reade r (Freestyle Lorne 14 Day Derwent) misc Discontinued 0 .ROUTE .MEDSUPPLY 1 April 05, 2018 12:00am April 05, 2018 1:44pm use to moniter BG via sensor on back of arm Start: 04-05-2018 End: 04-05-2018 Flash Glucose Scanning Reade r (Freestyle Lorne 14 Day Derwent) misc Discontinued 0 .ROUTE .MEDSUPPLY 1 April 05, 2018 1:00am April 05, 2018 2:44pm use to moniter BG via sensor on back of arm Flash Glucose Sensor (Freestyle Lorne 14 Day Sensor) kit (18 sources) Start: 04-05-2018 End: 08-23-2019 Flash Glucose Sensor (Freest yle Lorne 14 Day Sensor) kit Discontinued 0 .ROUTE .MEDSUPPLY 2 April 05, 2018 2:44pm August 23, 2019 9:17am Type 2 diabetes mellitus without complications e11.9 apply to back of arm to moniter BG. change q 14 days Start: 04-05-2018 End: 08-23-2019 Flash Glucose Sensor (Freest yle Lorne 14 Day Sensor) kit Discontinued 0 .ROUTE .MEDSUPPLY 2 April 05, 2018 1:44pm August 23, 2019 8:17am apply to back of arm to moniter BG. change q 14 days Start: 04-05-2018 End: 08-23-2019 Flash Glucose Sensor (Freest yle Lorne 14 Day Sensor) kit Discontinued 0 .ROUTE .MEDSUPPLY 2 April 05, 2018 2:44pm August 23, 2019 9:17am apply to back of arm to moniter BG. change q 14 days Start: 04-05-2018 End: 04-05-2018 Flash Glucose Sensor (Freest yle Lorne 14 Day Sensor) kit Discontinued 0 .ROUTE .MEDSUPPLY 2 April 05, 2018 1:00am April 05, 2018 2:44pm Type 2 diabetes mellitus without complications e11.9 apply to back of arm to moniter BG. change q 14 days Start: 04-05-2018 End: 04-05-2018 Flash Glucose Sensor (Freest yle Lorne 14 Day Sensor) kit Discontinued 0 .ROUTE .MEDSUPPLY 2 April 05, 2018 12:00am April 05, 2018 1:44pm apply to back of arm to moniter BG. change q 14 days Start: 04-05-2018 End: 04-05-2018 Flash Glucose Sensor (Freest yle Lorne 14 Day Sensor) kit Discontinued 0 .ROUTE .MEDSUPPLY 2 April 05, 2018 1:00am April 05, 2018 2:44pm apply to back of arm to moniter BG. change q 14 days glipiZIDE 5 mg oral tablet (20 sources) Sulfonylurea Start: 04-30-2018 End: 04-26-2021 take 1 tablet by mouth once daily Glipizide 5 mg tablet Discontinued 5 mg PO DAILY 90 2 September 05, 2019 7:50am October 27, 2020 2:56pm Other specified diabetes mellitus with hyperglycemia insulin glargine 100 unt/ml injectable solution (20 sources) Insulin Analogue Start: 04-10-2019 inject 18-20 [IU] by subcutaneous injection once daily in the evening Lantus 100 units/mL10 ml vial solution See Instructions, 18-20 units subcutaneously every evening, # 15 mL, 11 Refill(s), Pharmacy: [facility] Start Date: 04/10/19 Status: Ordered Start: 02-12-2018 End: 08-15-2022 Insulin Glargine (Lantus U-1 00 Insulin) 100 unit/mL solution Discontinued 20 U SC daily 20 3 February 12, 2018 1:39pm February 07, 2022 4:55pm Type 2 diabetes mellitus without complications e11.9 Start: 04-27-2017 End: 02-12-2018 Insulin Glargine (Lantus U-1 00 Insulin) 100 unit/mL solution Discontinued 19 U SC daily April 27, 2017 1:00am February 12, 2018 12:42pm Start: 08-11-2016 End: 04-27-2017 inject 17 [IU] by subcutaneous injection at bedtime Insulin Glargine 100 UNIT/ML solution Discontinued 17 U SQ AT BEDTIME August 11, 2016 12:00am April 27, 2017 10:14am Start: 10-29-2010 LANTUS 100 UNI T/ML SOLN inject 19 units daily INSULIN GLARGINE [id number] Sherif Gaitan TECHNICAL SALES SUPPORT MANAGER Start: 10-29-2010 LANTUS 100 UNI T/ML SOLN as directed INSULIN GLARGINE [id number] Clyde Smith MD 3 ml insulin lispro 100 unt/ml pen injector (11 sources) Insulin Analogue Start: 04-27-2017 End: 08-23-2019 Insulin Lispro (Humalog Kwikpen Insulin) 100 unit/mL insulin pen Discontinued 0 SC EVERY MORNING April 27, 2017 1:00am August 23, 2019 9:18am use as directed 200-249=1U, 250-299=2U, 300-348=3U SC QAM Start: 08-23-2016 HUMALOG KWIKPE N 100 UNIT/ML SOPN Use as directed 200-249 1 unit 250-299 2 unit 300-349 3 unit INSULIN LISPRO [id number] Sherif Mira Gaitan TECHNICAL SALES SUPPORT MANAGER Start: 10-29-2010 HUMALOG SOLN T bret as directed INSULIN LISPRO (HUMAN) SOLN [id number] Soledad Hickey lansoprazole 30 mg delayed release oral capsule (11 sources) Proton Pump Inhibitor Start: 04-27-2017 End: 03-31-2023 take 1 capsule by mouth once daily Lansoprazole (Prevacid) 30 mg capsule,delayed release(DR/EC) Discontinued 30 mg PO daily April 27, 2017 1:00am March 31, 2023 4:19pm Start: 07-05-2012 take 1 tablet by fausto th once daily PREVACID 30 MG CPDR One tablet by mouth daily LANSOPRAZOLE [id number] Clyde Smith MD mecobalamin 1 mg chewable tablet (18 sources) Start: 10-26-2020 End: 09-30-2021 take 2 tablets by mouth once Mecobalamin (Vitamin B12) 1,000 mcg tablet,chewable Discontinued 2000 ug PO .3x/week 72 October 26, 2020 4:18pm September 30, 2021 4:04pm Start: 10-26-2020 End: 09-30-2021 take 2000 ug by mouth once Mecobalamin (Vitamin B12) Discontinued 2000 MCG PO .3x/week 72 October 26, 2020 3:18pm September 30, 2021 3:04pm Start: 09-18-2020 End: 10-26-2020 take 1 tablet by mouth once daily Mecobalamin (Vitamin B12) 1,000 mcg tablet,chewable Discontinued 1000 ug PO DAILY September 18, 2020 12:00am October 26, 2020 4:21pm meloxicam 15 mg oral tablet (9 sources) Nonsteroidal Anti-inflammatory Drug Start: 04-27-2020 End: 09-30-2021 take 1 tablet by mouth once daily Meloxicam 15 mg tablet Discontinued 15 mg PO DAILY April 27, 2020 1:00am September 30, 2021 4:04pm niacin 500 mg oral tablet (2 sources) Nicotinic Acid Start: 10-29-2010 End: 01-24-2011 take 1 tablet by mouth at bedtime NIACIN 500 MG TABS One tablet by mouth at bedtime. NIACIN [id number] Patric Colon MD omeprazole 20 mg delayed release oral tablet (1 source) Proton Pump Inhibitor take 1 tablet by mouth once daily PRILOSEC OTC 20 MG TBEC One tablet by mouth daily OMEPRAZOLE MAGNESIUM [id number] Patric Colon MD pravastatin sodium 40 mg oral tablet (5 sources) HMG-CoA Reductase Inhibitor Start: 09-02-2014 End: 03-10-2015 take 1 tablet by mouth at bedtime PRAVASTATIN SODIUM 40 MG TABS One tablet by mouth at bedtime. PRAVASTATIN SODIUM [id number] Clyde Smith MD Start: 02-14-2014 End: 03-13-2014 take 1 tablet by mouth once daily PRAVASTATIN SODIUM 20 MG TABS One tablet by mouth daily PRAVASTATIN SODIUM [id number] Ashli Fried RN pregabalin 75 mg oral capsule (9 sources) Start: 09-30-2021 End: 03-31-2023 take 1 capsule by mouth once daily Pregabalin 75 mg capsule Discontinued 75 mg PO DAILY September 30, 2021 12:00am March 31, 2023 4:19pm 24 hr propranolol hydrochloride 60 mg extended release oral capsule (2 sources) beta-Adrenergi c Della Start: 10-29-2010 End: 07-04-2011 take 1 tablet by mouth once daily INDERAL LA 60 MG [id number] One tablet by mouth daily PROPRANOLOL HCL [id number] Urban Jesus MD WALKING BOOT FOR THE RIGHT FOOT (2 sources) Start: 01-24-2011 End: 07-05-2012 WALKING BOOT FOR THE RIGHT FOOT Diagnosis : Foot contusion WALKING BOOT FOR THE RIGHT FOOT Clyde Smith MD Start: 01-24-2011 WALKING BOOT F OR THE RIGHT FOOT Diagnosis : Foot contusion WALKING BOOT FOR THE RIGHT FOOT Patric Colon MD Problems Active Problems Problem Classification Problem Date Documented Date Episodic/Chronic Acute myocardial infarction (1 source) Acute subendocardial infarction; Translations: [Non-ST elevation (NSTEMI) myocardial infarction] Onset: 10-29-2010 10-29-2010 Chronic Cardiac dysrhythmias (9 sources) Palpitations - rapid; Translations: [Palpitations] 09-19-2019 Episodic Coronary atherosclerosis and other heart disease (9 sources) Atherosclerotic heart disease of [place] coronary artery without angina pectoris; Translations: [Old myocardial infarction] Onset: 10-29-2010 09-15-2015 Chronic Diabetes mellitus with complications (1 source) Type 2 diabetes mellitus with hyperglycemia; Translations: [Type 2 diabetes mellitus with hyperglycemia] Onset: 10-18-2024 Chronic Diabetes mellitus with complications (1 source) Type 1 diabetes mellitus with diabetic peripheral angiopathy without gangrene; Translations: [Type 1 diabetes mellitus with diabetic peripheral angiopathy without gangrene] Onset: 10-29-2010 10-29-2010 Diabetes mellitus without complication (15 sources) Type 2 diabetes mellitus; Translations: [Type 2 diabetes mellitus without complications] Onset: 05-11-2016 05-11-2016 Chronic Disorders of lipid metabolism (19 sources) Hyperlipidemia; Translations: [Hyperlipidemia, unspecified] Onset: 10-29-2010 10-29-2010 Chronic Essential hypertension (18 sources) Hypertensive disorder; Translations: [Essential hypertension] Onset: 10-29-2010 10-29-2010 Chronic Heart valve disorders (11 sources) Nonrheumatic mitral (valve) prolapse; Translations: [Mitral valve prolapse] Onset: 10-29-2010 09-15-2015 Chronic Hepatitis (1 source) Chronic viral hepatitis C; Translations: [Chronic viral hepatitis C] Onset: 10-29-2010 10-29-2010 Chronic Immunity disorders (1 source) Drug-induced immunodeficiency ; 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] Onset: 07-04-2016 07-04-2016 Chronic Nutritional deficiencies (9 sources) Cobalamin deficiency; Translations: [Deficiency of other specified B group vitamins] 10-26-2020 Episodic Other aftercare (1 source) FDC (current) use of insulin; Translations: [FDC (current) use of insulin] Onset: 10-18-2024 Episodic Other eye disorders (9 sources) Feeling of sand or foreign body in eye; Translations: [Unspecified disorder of eye and adnexa] 03-01-2014 Episodic Other inflammatory condition of skin (1 source) Psoriasis; Translations: [Psoriasis, unspecified] Onset: 07-04-2016 07-04-2016 Chronic Other inflammatory condition of skin (1 source) Psoriasis vulgaris; Translations: [Psoriasis vulgaris] Onset: 02-06-2024 Chronic Other nervous system disorders (1 source) Claudication; Translations: [Peripheral vascular disease, unspecified] Onset: 03-10-2015 03-10-2015 Chronic Other nutritional; endocrine; and metabolic disorders (9 sources) Body mass index 25-29 - overweight; Translations: [Overweight] 04-28-2020 Episodic Other nutritional; endocrine; and metabolic disorders (3 sources) Overweight; Translations: [Overweight] Episodic Peripheral and visceral atherosclerosis (9 sources) Intermittent claudication; Translations: [Peripheral vascular disease, unspecified] 04-26-2018 Chronic Unclassified (3 sources) Sleep apnea; Translations: [Body mass index (BMI) 30.0-30.9, adult] Onset: 03-13-2014 Resolved: 09-02-2014 05-21-2016 Chronic Unclassified (1 source) Long-term drug therapy; 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] Onset: 10-29-2010 10-29-2010 Unclassified (2 sources) Placement of stent in coronary artery ; Translations: [Presence of coronary angioplasty implant and graft] Onset: 10-29-2010 09-15-2015 Past or Other Problems Problem Classification Problem Date Documented Da te Episodic/Chronic Coronary atherosclerosis and other heart disease (6 sources) Coronary angioplasty status; Translations: [Presence of coronary angioplasty implant and graft] Onset: 06-23-2003 10-29-2010 Episodic Superficial injury; contusion (1 source) Contusion of foot; Translations: [Contusion of right foot] Onset: 01-24-2011 01-24-2011 Episodic Tuberculosis (1 source) History of inactive tuberculosis; Translations: [Personal history of tuberculosis] Onset: 07-04-2016 07-04-2016 Episodic Unclassified (4 sources) FH: Raised blood lipids; Translations: [FH: Hypertension] Onset: 08-13-2013 Resolved: 05-20-2016 05-21-2016 Episodic Results Test Name Value Interpretation Reference Range Facility Endocrinology Visit Reporton 10-18-2024 Endocrinology Visit Report [facility] [address] [place] [address] OFFICE VISIT Date of Service: 10/18/24 MR#: [id number] Acct: [id number] Name: CAROLINE BECKETT Rep #: [id number] : 1960 Provider: Genesis Strickland Age/Sex: 64/M [place] [facility] [place]: Signed Intake Vital Signs 04/05/24 11:19 06/14/24 08:31 10/18/24 09:37 Height 6 ft 1 in 6 ft 1 in 6 ft 1 in Weight: 223 lb 8 oz 218 lb 210 lb BMI 29.5 28.8 27.7 BP 160/80 H 133/80 H 162/82 H Blood Pressure Location Rt brachial Lt brachial Lt brachial Position Sitting Sitting Sitting Respiration 18 Pulse 76 79 71 Pulse Source Monitor Monitor Monitor Pulse Oximetry (%) 96 96 96 Oxygen Delivery Method room air room air room air Intake Visit Reasons: 6 M FU Chief Complaint: Diabetes Is patient in pain?: No Allergies colestipol (From Colestid) Allergy (Severe, Verified 10/18/24 09:40) myalgia gabapentin Allergy (Severe, Verified 10/18/24 09:40) Unknown hydrochlorothiazide Allergy (Severe, Verified 10/18/24 09:40) Unknown niacin (From Niaspan Extended-Release) Allergy (Severe, Verified 10/18/24 09:40) myalgia rosuvastatin (From Crestor) Allergy (Severe, Verified 10/18/24 09:40) myalgia simvastatin (From Vytorin) Allergy (Severe, Verified 10/18/24 09:40) myalgia aspirin Allergy (Verified 10/18/24 09:40) Rash ezetimibe (From Zetia) Allergy (Verified 10/18/24 09:40) myalgia ibuprofen (From Motrin) Allergy (Verified 10/18/24 09:40) Rash Beta-Blockers (Beta-Adrenergic Bloc Adverse Reaction (Severe, Verified 10/18/24 09:40) Other Medications ???Medication ???Instructions ???Recorded ???Confirmed ???Type tramadol 50 mg tablet 25 mg PO Q4H PRN PRN Pain 08/11/16 10/18/24 History hydroxychloroquine 200 mg tablet 200 mg PO DAILY #1 TAB 04/27/20 Rx (Plaquenil) ustekinumab 90 mg/mL subcutaneous 90 mg subcut Q3M 04/26/21 5 History syringe sertraline 50 mg tablet 25 mg PO DAILY 10/04/23 10/18/24 H istory amlodipine 10 mg tablet 10 mg PO QDAY 06/14/24 10/18/24 Hi story ramipril 10 mg capsule 10 mg PO DAILY #90 caps 06/14/24 0 10/18/24 Rx cyanocobalamin (vitamin B-12) mcg subcut 10/18/24 10/18/24 Histo ry 1,000 mcg/mL injection solution dulaglutide 4.5 mg/0.5 mL 4.5 mg (0.5 mL) subcut QWEEK #6 mL 10/18/24 10/18/24 Rx subcutaneous pen injector (Trulicity) metformin 1,000 mg tablet 1,000 mg PO DAILY #90 tabs 5 10/18/24 Rx PFSH Medical History Vitamin B 12 deficiency Obesity Claudication Type 2 diabetes mellitus History of non-ST elevation myocardial infarction (NSTEMI) GERD (gastroesophageal reflux disease) Obstructive sleep apnea Hepatitis C Nonrheumatic mitral (valve) prolapse Essential (primary) hypertension Atherosclerosis of coronary artery of [place] heart without angina pectoris Hyperlipidemia Diabetes type 2, controlled Surgical History History of coronary artery stent placement (06/23/03) History of left heart catheterization (05/14/08) S/P left rotator cuff repair H/O: vasectomy History of anal fissures Family History Mother Heart disease CAD (coronary artery disease) Hypertension Hyperlipidemia Atrial fibrillation Diabetes Cancer Cancer of cervix Father Brain anoxia Social History Smoking Status: Former smoker quit date: 03/06/04 second hand exposure: No alcohol intake: former substance use type: does not use caffeine: Yes HPI HPI Chief Complaint: Diabetes Details: CAROLINE BECKETT, is a 64 M who presents to the office today for follow up. A1C is 6.6% He is taking Trulicity 4.5 mg weekly and metformin 1 g daily He didn't start Jardiance due to fear of side affects. He is on an JAKE. He restarted amlodipine. He checks BP at home. He has known CAD He is feeling well ROS Const Constitutional: No fatigue or weight change ENT ENT: No dizziness/vertigo Cardio Cardiology: No chest pain at rest, chest pain with exertion, shortness of breath or palpitations Skin Skin: No wounds Endo Endocrine: No fatigue or weight change Exam Const General: cooperative, healthy appearing, comfortable, no acute distress, well developed and not cushingoid Nutritional Appearance: well nourished Orientation: alert, awake and oriented x3 HENMT Head: normal to inspection Ears: hearing grossly normal bilaterally Nose: external nose normal Mouth: oral mucosae normal Eyes General: appearance normal, both eyes and all related structures Alignment and Position: alignment normal Periorbita (more content not included)... Normal [facility] Bilirubin directOrdered By: Patty Mcmahan on 06-21-2024 Bilirubin.direct [Mass/Vol] 0.39 mg/dL High 0.00-0.30 [facility] Bilirubin, totalOrdered By: Patty Mcmahan on 06-21-2024 Bilirubin [Mass/Vol] 0.97 mg/dL 0.00-1.[address] [facility] Calculated very low density lipoprotein (VLDL) cholesterol measurementOrdered By: Patty Mcmahan on 06-21-2024 Calculated very low density lipoprotein (VLDL) cholesterol measurement 18 mg/dL 5-40 [facility] LDL calc ser/plasOrdered By: Patty Mcmahan on 06-21-2024 Cholesterol in LDL [Mass/Vol] 115 mg/dL [facility] Comment on above: Opurldgdum=056-030 m g/dL & Higher Giue=057 mg/dL or greater Laboratory - Chemistry and C hemistry - challengeOrdered By: Patty Mcmahan on 06-21-2024 AST [Catalytic activity/Vol] 17 U/L <38 [facility] Lipid Profileon 06-21-2024 CHOL:HDL 3.65 Normal [facility] Comment on above: Performed By: #### L 500.4100, L500.3400 ####[facility] [address] [place], [address] Cholesterol [Mass/Vol] 183 mg/dL Normal <=200 [facility] Comment on above: Result Comment: Chol esterol level, Desirable <200 mg/dL Borderline high cholesterol 200-239 mg/dL High cholesterol >=240 mg/dL Recommendations of the NCEP Adult Treatment Panel for the following risk-cutoff thresholds for the [place] population. Performed By: #### L 500.4100, L500.3400 ####[facility] [address] [place], [address] Cholesterol in HDL [Mass/Vol] 50 mg/dL Normal [facility] Comment on above: Result Comment: Sharmin onal Cholesterol Education Program (NCEP) guidelines: <40 mg/dL: Low HDL-cholesterol (major risk factor for CHD) >= 60 mg/dL: High HDL-cholesterol (negative risk factor for CHD) HDL-cholesterol is affected by a number of factors, e.g. smoking, exercise, hormones, sex and age. Performed By: #### L 500.4100, L500.3400 ####[facility] [address] [place], [address] Cholesterol in LDL [Mass/Vol] 115 mg/dL Normal [facility] Comment on above: Result Comment: Bord uuklcy=004-812 mg/dL Higher Vcpj=074 mg/dL or greater Performed By: #### L 500.4100, L500.3400 ####[facility] [address] [place], [address] Cholesterol in VLDL [Mass/Vol] 18 mg/dL Normal 5-40 [facility] Comment on above: Performed By: #### L 500.4100, L500.3400 ####[facility] [address] [place], [address] Triglyceride [Mass/Vol] 91 mg/dL Normal [facility] Comment on above: Result Comment: The drugs N-Acetylcysteine and Metamizole may falsely depress this assay. Normal range: <150 mg/dL Borderline High: 150-199 mg/dL High: 200-499 mg/dL Very High: >500 mg/dL Performed By: #### L 500.4100, L500.3400 ####[facility] [address] [place], [address] Liver Profileon 06-21-2024 Albumin [Mass/Vol] 4.2 g/dL Normal 3.4-4.8 [facility] Comment on above: Performed By: #### L 500.4100, L500.3400 #### [facility] [address] [place], [address] ALK PHOS 91 U/L Normal 40-129 [facility] Comment on above: Performed By: #### L 500.4100, L500.3400 #### [facility] [address] [place], [address] ALT [Catalytic activity/Vol] 10 U/L Normal <=46 [facility] Comment on above: Performed By: #### L 500.4100, L500.3400 #### [facility] [address] [place], [address] AST [Catalytic activity/Vol] 17 U/L Normal <=37 [facility] Comment on above: Performed By: #### L 500.4100, L500.3400 #### [facility] [address] [place], [address] Bilirubin [Mass/Vol] 0.97 mg/dL Normal 0.00-1.[address] [facility] Comment on above: Performed By: #### L 500.4100, L500.3400 #### [facility] [address] [place], [address] Bilirubin.direct [Mass/Vol] 0.39 mg/dL High 0.00-0.30 [facility] Comment on above: Performed By: #### L 500.4100, L500.3400 #### [facility] [address] [place], [address] Globulin (S) [Mass/Vol] 3.0 g/dL Normal 2.2-4.2 [facility] Comment on above: Performed By: #### L 500.4100, L500.3400 #### [facility] [address] [place], [address] T PROT 7.2 g/dL Normal 5.9-8.4 [facility] Comment on above: Performed By: #### L 500.4100, L500.3400 #### [facility] [address] [place], [address] Screening total cholesterol/ high density lipoprotein (HDL) cholesterol ratioOrdered By: Patty Mcmahan on 06-21-2024 Cholesterol.total/Ch olesterol in HDL [Mass ratio] 3.65 {ratio} [facility] Serum globulin measurementOr dered By: Patty Mcmahan on 06-21-2024 Globulin (S) [Mass/Vol] 3.0 g/dL 2.2-4.2 [facility] Serum or plasma alanine strong otransferase (ALT) measurementOrdered By: Patty Mcmahan on 06-21-2024 ALT [Catalytic activity/Vol] 10 U/L <47 [facility] Serum or plasma albumin jacki urement (mass/volume)Ordered By: Patty Mcmahan on 06-21-2024 Albumin [Mass/Vol] 4.2 g/dL 3.4-4.8 [facility] Serum or plasma alkaline marybel sphatase measurementOrdered By: Patty Mcmahan on 06-21-2024 ALP [Catalytic activity/Vol] 91 U/L 40-129 [facility] Serum or plasma cholesterol in HDL measurement (mass/volume)Ordered By: Patty Mcmahan on 06-21-2024 Cholesterol in HDL [Mass/Vol] 50 mg/dL >40 [facility] Comment on above: National Cholesterol Education Program (NCEP) guidelines:<40 mg/dL: Low HDL-cholesterol (major risk factor for CHD)>= 60 mg/dL: High HDL-cholesterol (negative risk factor for CHD)HDL-cholesterol is affected by a number of factors, e.g. smoking, exercise, hormones, sex and age. Serum or plasma cholesterol measurement (mass/volume)Ordered By: Patty Mcmahan on 06-21-2024 Cholesterol [Mass/Vol] 183 mg/dL <201 [facility] Comment on above: Cholesterol level, D esirable <200 mg/dLBorderline high cholesterol 200-239 mg/dLHigh cholesterol >=240 mg/dLRecommendations of the NCEP Adult Treatment Panel for the following risk-cutoff thresholds for the [place] population. Total proteinOrdered By: Chau Mcmahan on 06-21-2024 Protein [Mass/Vol] 7.2 g/dL 5.9-8.4 [facility] Triglycerides measurementOrd ered By: Patty Mcmahan on 06-21-2024 Triglyceride [Mass/Vol] 91 mg/dL <199 [facility] Comment on above: The drugs N-Acetylcy steine and Metamizole may falsely depress this assay. Normal range: <150 mg/dLBorderline High: 150-199 mg/dLHigh: 200-499 mg/dLVery High: >500 mg/dL Cardiology Visit Reporton Cardiology Visit Report [facility] [address] [place] [address] OFFICE VISIT Date of Service: 06/14/24 MR#: [id number] Acct: [id number] Name: CAROLINE BECKETT Rep #: [id number] : 1960 Provider: GILMA romano Age/Sex: 64/M Location[place] [facility] [place] Status: Signed HPI HPI History of Present Illness Details: CAROLINE BECKETT, is a 64M who presents to the office today for a follow-up visit. He is a gentleman with a history of hypertension, hyperlipidemia, diabetes mellitus, coronary artery disease status post angioplasty and stenting of the circumflex artery. His echocardiogram on 09/27/2019 showed ejection fraction 53%, stage I diastolic dysfunction, and moderately enlarged left atrium. Holter monitor from 09/26/2019 showed average heart rate 77 bpm and no atrial fibrillation. Ventricular ectopy was noted to be 3.2%. He has been intolerant to several cholesterol lowering medication, including statins. From a cardiac standpoint, the patient is doing well. He denies any palpitations, chest pain, pressure or heaviness. He denies SOB, Orthopnea, and PND. He does not have bleeding issues; no blood in urine, stool, or nosebleeds. He denies any decrease in energy level, myalgias, or claudication. He does not have edema, or sudden weight gain. He denies lightheadedness, dizziness, syncopal or near syncopal episodes, and headaches. 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 Accompanied by: Self Is patient in pain?: No Allergies colestipol (From Colestid) Allergy (Severe, Verified 06/14/24 08:37) myalgia gabapentin Allergy (Severe, Verified 06/14/24 08:37) Unknown hydrochlorothiazide Allergy (Severe, Verified 06/14/24 08:37) Unknown niacin (From Niaspan Extended-Release) Allergy (Severe, Verified 06/14/24 08:37) myalgia rosuvastatin (From Crestor) Allergy (Severe, Verified 06/14/24 08:37) myalgia simvastatin (From Vytorin) Allergy (Severe, Verified 06/14/24 08:37) myalgia aspirin Allergy (Verified 06/14/24 08:37) Rash ezetimibe (From Zetia) Allergy (Verified 06/14/24 08:37) myalgia ibuprofen (From Motrin) Allergy (Verified 06/14/24 08:37) Rash Beta-Blockers (Beta-Adrenergic Bloc Adverse Reaction (Severe, Verified 06/14/24 08:37) Other Medications ???Medication ???Instructions ???Recorded ???Confirmed ???Type tramadol 50 mg tablet 25 mg PO Q4H PRN PRN Pain 08/11/16 06/14/24 History hydroxychloroquine 200 mg tablet 200 mg PO DAILY #1 TAB 04/27/20 Rx (Plaquenil) ustekinumab 90 mg/mL subcutaneous 90 mg subcut Q3M 04/26/21 5 History syringe sertraline 50 mg tablet 25 mg PO DAILY 10/04/23 06/14/24 H istory metformin 1,000 mg tablet 1,000 mg PO DAILY #90 tabs 4 06/14/24 Rx dulaglutide 4.5 mg/0.5 mL 4.5 mg (0.5 mL) subcut QWEEK #6 mL 05/09/24 06/14/24 Rx subcutaneous pen injector (Trulicity) amlodipine 10 mg tablet 10 mg PO QDAY 06/14/24 06/14/24 Hi story ramipril 10 mg capsule 10 mg PO DAILY #90 caps 06/14/24 0 06/14/24 Rx Have you fallen in the past year?: No PFSH Medical History Vitamin B 12 deficiency Obesity Claudication Type 2 diabetes mellitus History of non-ST elevation myocardial infarction (NSTEMI) GERD (gastroesophageal reflux disease) Obstructive sleep apnea Hepatitis C Nonrheumatic mitral (valve) prolapse Essential (primary) hypertension Atherosclerosis of coronary artery of [place] heart without angina pectoris Hyperlipidemia Diabetes type 2, controlled Surgical History History of coronary artery stent placement (06/23/03) History of left heart catheterization (05/14/08) S/P left rotator cuff repair H/O: vasectomy History of anal fissures Family History Mother Heart disease CAD (coronary artery disease) Hypertension Hyperlipidemia Atrial fibrillation Diabetes Cancer Cancer of cervix Father Brain anoxia Social History Smoking Status: Former smoker quit date: 03/06/04 second hand exposure: No alcohol intake: former substance use type: does not use caffeine: Yes ROS Const Const: Negative for fatigue, weakness, fever(s), headache(s), chills, frequent falls, weight gain or weight loss Eye (more content not included)... Normal [facility] Endocrinology Visit Reporton 04-05-2024 Endocrinology Visit Report [facility] [address] [place] [address] OFFICE VISIT Date of Service: 04/05/24 MR#: [id number] Acct: [id number] Name: CAROLINE BECKETT Rep #: [id number] : 1960 Provider: Genesis Strickland Age/Sex: 63/M [place] [facility] [place]: Signed Intake Vital Signs 10/04/23 15:46 04/05/24 11:19 Height 6 ft 1 in 6 ft 1 in Weight: 214 lb 223 lb 8 oz BMI 28.2 29.5 BP 139/84 H 160/80 H Blood Pressure Location Lt brachial Rt brachial Position Sitting Sitting Pulse 87 76 Pulse Source Monitor Monitor Pulse Oximetry (%) 93 96 Oxygen Delivery Method room air room air Intake Visit Reasons: 6 M FU Chief Complaint: Diabetes Is patient in pain?: No Allergies colestipol (From Colestid) Allergy (Severe, Verified 04/05/24 11:23) myalgia gabapentin Allergy (Severe, Verified 04/05/24 11:23) Unknown hydrochlorothiazide Allergy (Severe, Verified 04/05/24 11:23) Unknown niacin (From Niaspan Extended-Release) Allergy (Severe, Verified 04/05/24 11:23) myalgia rosuvastatin (From Crestor) Allergy (Severe, Verified 04/05/24 11:23) myalgia simvastatin (From Vytorin) Allergy (Severe, Verified 04/05/24 11:23) myalgia aspirin Allergy (Verified 04/05/24 11:23) Rash ezetimibe (From Zetia) Allergy (Verified 04/05/24 11:23) myalgia ibuprofen (From Motrin) Allergy (Verified 04/05/24 11:23) Rash Beta-Blockers (Beta-Adrenergic Bloc Adverse Reaction (Severe, Verified 04/05/24 11:23) Other Medications ???Medication ???Instructions ???Recorded ???Confirmed ???Type tramadol 50 mg tablet 25 mg PO Q4H PRN PRN Pain 08/11/16 04/05/24 History hydroxychloroquine 200 mg tablet 200 mg PO DAILY #1 TAB 04/27/20 Rx (Plaquenil) ustekinumab 90 mg/mL subcutaneous 90 mg subcut Q3M 04/26/21 5 History syringe ramipril 10 mg capsule 10 mg PO DAILY #90 caps 03/31/23 0 04/05/24 Rx sertraline 50 mg tablet 25 mg PO DAILY 10/04/23 04/05/24 H istory Trulicity 3 mg/0.5 mL subcutaneous 3 mg (0.5 mL) subcut QWEEK #6 mL 12/15/23 04/05/24 Rx pen injector (dulaglutide) metformin 1,000 mg tablet 1,000 mg PO DAILY #90 tabs 4 04/05/24 Rx empagliflozin 25 mg tablet 25 mg PO QAM #30 tabs 04/05/24 Rx (Jardiance) PFSH Medical History Vitamin B 12 deficiency Obesity Claudication Type 2 diabetes mellitus History of non-ST elevation myocardial infarction (NSTEMI) GERD (gastroesophageal reflux disease) Obstructive sleep apnea Hepatitis C Nonrheumatic mitral (valve) prolapse Essential (primary) hypertension Atherosclerosis of coronary artery of [place] heart without angina pectoris Hyperlipidemia Diabetes type 2, controlled Surgical History History of coronary artery stent placement (06/23/03) History of left heart catheterization (05/14/08) S/P left rotator cuff repair H/O: vasectomy History of anal fissures Family History Mother Heart disease CAD (coronary artery disease) Hypertension Hyperlipidemia Atrial fibrillation Diabetes Cancer Cancer of cervix Father Brain anoxia Social History Smoking Status: Former smoker quit date: 03/06/04 second hand exposure: No alcohol intake: former substance use type: does not use caffeine: Yes HPI HPI Chief Complaint: Diabetes Details: CAROLINE BECKETT, is a 63 M who presents to the office today for follow up. A1C is 7.2% He is taking Trulicity 3 mg and metformin 1 g bid. He has gained 10 pounds. He has hypertension and BP is high today. He states he has been taking ramipril, but he hasn't been taking his amlodipine. He states BP is running 150/80 at home. He reports that he has reactions to medications. Amlodipine makes him feel stoned, metoprolol makes him feel angry, he doesn't remember what happened with HCTZ. He reports that he is on topical steroids and that has made him hungry. ROS Const Constitutional: No fatigue, weight change or change in appetite Eyes Eyes: No change in vision ENT ENT: No dizziness/vertigo or difficulty swallowing Cardio Cardiology: No chest pain at rest, chest pain with exertion, shortness of breath or palpitations Musc Musculoskeletal: No abnormal gait, joint pain, numbness or tingling Neuro Neurology: No abnormal gait, memory loss, numbness or tingling Psych Psychiatric: No change in appetite, No memory loss and No Thoughts of harming yourself/Others Resp Respiratory: No cough, chest congestion or shortness of breath Gastro GI: No abdominal pain, constipation, diarrhea or difficulty swallowing Genito (more content not included)... 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 [facility] Comment on above: Performed By: #### L 7000.7000, L3400.8000, L501.4405, L501.4100, L100.0100 #### [facility] [address] [place], [place], [id number] HCV QT RNA PCR Not detected Normal . [facility] Comment on above: Performed By: #### L 7000.7000, L3400.8000, L501.4405, L501.4100, L100.0100 #### [facility] [address] [place], [address] TEST INFO: Comment Normal . [facility] [facility] Comment on above: Result Comment: The quantitative range of this assay is 15 IU/mL to 100 million IU/mL. Performed at: [address] [id number] [address] Maintenance Supervisor: aRnjan Castorena PhD, Phone: [phone] Performed at: [facility] [address] [id number] [address] Maintenance Supervisor: Carroll Butts MD, Phone: [phone] Performed By: #### L 7000.7000, L3400.8000, L501.4405, L501.4100, L100.0100 #### [facility] [address] [place], [address] Quantiferon TB-Gold+on 01-15 QFT MITOGEN ARTUR > 10.00 Normal . [facility] Comment on above: Performed By: #### L 7000.7000, L3400.8000, L501.4405, L501.4100, L100.0100 #### [facility] [address] [place], [address] QFT NIL VALUE 0.01 IU/mL Normal . [facility] Comment on above: Performed By: #### L 7000.7000, L3400.8000, L501.4405, L501.4100, L100.0100 #### [facility] [address] [place], [address] QFT TB GOLD+ Comment Normal . [facility] Comment on above: Result Comment: Andrea tiFERON-TB Gold Plus is a qualitative indirect test for M tuberculosis infection (including disease) and is intended for use in conjunction with risk assessment, radiography, and other medical and diagnostic evaluations. The QuantiFERON-TB Gold Plus result is determined by subtracting the Nil value from either TB antigen (Ag) value. The Mitogen tube serves as a control for the test. Performed By: #### L 7000.7000, L3400.8000, L501.4405, L501.4100, L100.0100 #### [facility] [address] [place], [address] QFT TB POS CRIT Negative Normal Negative [facility] Comment on above: Result Comment: No r esponse to M tuberculosis antigens detected. Infection with M tuberculosis is unlikely, but high risk individuals should be considered for additional testing (ATS/IDSA/CDC Clinical Practice Guidelines, 2017). The reference range is an Antigen minus Nil result of <0.35 IU/mL. The specimen received for QuantiFERON testing was incubated by the ordering institution. Specific procedures outlined in our Directory of Services and in the package insert for the QuantiFERON Gold (In Tube) test must be followed to enable for proper stimulation of cells for the production of interferon gamma. Chemiluminescence immunoassay methodology Performed By: #### L 7000.7000, L3400.8000, L501.4405, L501.4100, L100.0100 #### [facility] [address] [place], [address] QFT TB1+ AG ARTUR 0.07 IU/mL Normal . [facility] Comment on above: Performed By: #### L 7000.7000, L3400.8000, L501.4405, L501.4100, L100.0100 #### [facility] [address] [place], [address] QFT TB2+ AG ARTUR 0.08 IU/mL Normal . [facility] Comment on above: Performed By: #### L 7000.7000, L3400.8000, L501.4405, L501.4100, L100.0100 #### [facility] [address] [place], [address] AST(SGOT)on 01-12-2024 AST [Catalytic activity/Vol] 12 U/L Low 15-37 [facility] Comment on above: Performed By: #### L 7000.7000, L3400.8000, L501.4405, L501.4100, L100.0100 #### [facility] [address] [place], [address] Alanine Aminotransferas (SGP T)on 01-12-2024 ALT [Catalytic activity/Vol] 17 U/L Normal 16-61 [facility] Comment on above: Performed By: #### L 7000.7000, L3400.8000, L501.4405, L501.4100, L100.0100 #### [facility] [address] [place], [address] CBC W/Diff, Automatedon 11-0 Absolute Lymph 1.90 X10 3/uL Normal 0.83-4.51 [facility] Comment on above: Performed By: #### L 7000.7000, L3400.8000, L501.4405, L501.4100, L100.0100 #### [facility] [address] [place], [address] Absolute Neut 5.4 X10 3/uL Normal 2.0-7.7 [facility] Comment on above: Performed By: #### L 7000.7000, L3400.8000, L501.4405, L501.4100, L100.0100 #### [facility] [address] [place], [address] Basophils/100 WBC (Bld) 0.8 % Normal 0-1 [facility] Comment on above: Performed By: #### L 7000.7000, L3400.8000, L501.4405, L501.4100, L100.0100 #### [facility] [address] [place], [address] Eosinophils/100 WBC (Bld) 1.8 % Normal 0-5 [facility] Comment on above: Performed By: #### L 7000.7000, L3400.8000, L501.4405, L501.4100, L100.0100 #### [facility] [address] [place], [address] Erythrocyte distribution width (RBC) [Ratio] 12.9 % Normal 11.6-14.6 [facility] Comment on above: Performed By: #### L 7000.7000, L3400.8000, L501.4405, L501.4100, L100.0100 #### [facility] [address] [place], [address] Hematocrit (Bld) [Volume fraction] 40.3 % Normal 40-54 [facility] Comment on above: Performed By: #### L 7000.7000, L3400.8000, L501.4405, L501.4100, L100.0100 #### [facility] [address] [place], [address] Hemoglobin (Bld) [Mass/Vol] 14.0 g/dL Normal 13.0-16.5 [facility] Comment on above: Performed By: #### L 7000.7000, L3400.8000, L501.4405, L501.4100, L100.0100 #### [facility] [address] [place], [address] IG% 0.200 Normal 0.0-0.9 [facility] Comment on above: Result Comment: IG% - Immature Granulocytes (promyelocytes, myelocytes and metamyelocytes) > 1% indicates that a LEFT SHIFT is Present. Performed By: #### L 7000.7000, L3400.8000, L501.4405, L501.4100, L100.0100 #### [facility] [address] [place], [address] Lymphocytes/100 WBC (Bld) 22.6 % Normal 19-41 [facility] Comment on above: Performed By: #### L 7000.7000, L3400.8000, L501.4405, L501.4100, L100.0100 #### [facility] [address] [place], [address] MCH (RBC) [Entitic mass] 31.5 pg Normal 27.0-32.0 [facility] Comment on above: Performed By: #### L 7000.7000, L3400.8000, L501.4405, L501.4100, L100.0100 #### [facility] [address] [place], [address] MCHC (RBC) [Mass/Vol] 34.7 g/dL Normal 32-36 [facility] Comment on above: Performed By: #### L 7000.7000, L3400.8000, L501.4405, L501.4100, L100.0100 #### [facility] [address] [place], [address] MCV (RBC) [Entitic vol] 90.6 fL Normal 80-94 [facility] Comment on above: Performed By: #### L 7000.7000, L3400.8000, L501.4405, L501.4100, L100.0100 #### [facility] [address] [place], [address] Monocytes/100 WBC (Bld) 10.0 % Normal 0-10 [facility] Comment on above: Performed By: #### L 7000.7000, L3400.8000, L501.4405, L501.4100, L100.0100 #### [facility] [address] [place], [address] Neutrophils/100 WBC (Bld) 64.6 % Normal 47-70 [facility] Comment on above: Performed By: #### L 7000.7000, L3400.8000, L501.4405, L501.4100, L100.0100 #### [facility] [address] [place], [address] Nucleated RBC (Bld) [#/Vol] 0 10*3/uL Normal 0-5 [facility] Comment on above: Performed By: #### L 7000.7000, L3400.8000, L501.4405, L501.4100, L100.0100 #### [facility] [address] [place], [address] Platelet mean volume (Bld) [Entitic vol] 10.2 fL Normal 6.2-12.0 [facility] Comment on above: Performed By: #### L 7000.7000, L3400.8000, L501.4405, L501.4100, L100.0100 #### [facility] [address] [place], [address] Platelets (Bld) [#/Vol] 178 10*3/uL Normal 150-450 [facility] Comment on above: Performed By: #### L 7000.7000, L3400.8000, L501.4405, L501.4100, L100.0100 #### [facility] [address] [place], [address] RBC (Bld) [#/Vol] 4.45 10*6/uL Low 4.6-6.2 [facility] Comment on above: Performed By: #### L 7000.7000, L3400.8000, L501.4405, L501.4100, L100.0100 #### [facility] [address] [place], [address] RDW SD 42.1 fl Normal 35.1-43.9 [facility] Comment on above: Performed By: #### L 7000.7000, L3400.8000, L501.4405, L501.4100, L100.0100 #### [facility] [address] [place], [address] WBC (Bld) [#/Vol] 8.4 10*3/uL Normal 4.4-11.0 [facility] Comment on above: Performed By: #### L 7000.7000, L3400.8000, L501.4405, L501.4100, L100.0100 #### [facility] [address] [place], [address] Chest PA and Lateralon 01-11 Chest PA and Lateral [facility] [address] [place] [address] Chest PA and Lateral MR#: [id number] Acct: [id number] Name: CAROLINE BECKETT Rep #: [id number] : 1960 M 63 From: Felix mireles MD PCP: Dr. Solis Harrington, DO Status: [facility] Study: Chest PA and Lateral Date of Exam: 01/12/24 Exam# [id number] Ordering Dr: Mat Nance MD [id number] STUDY: X-RAY CHEST REASON FOR EXAM: Male, 63 years old. Chest pain. TECHNIQUE: PA and lateral views of the chest. COMPARISON: Comparison is made with prior study dated January 03, 2023. FINDINGS: Stable increased interstitial markings in both lungs worse at the left lung base suggestive of scarring. There is no demonstrated pleural abnormality. Normal size heart. Normal mediastinum and jennifer. Normal visualized pulmonary arteries. Normal visualized aortic arch and descending thoracic aorta. Normal visualized thoracic spine. Normal visualized ribs, clavicles, and shoulders. There is no demonstrated abnormality of the visualized soft tissue structures of the upper abdomen. RAD/Chest PA and Lateral IMPRESSION: Stable examination. Findings suggestive of scarring as described. Electronically Signed: Felix Grijalva MD at 13:11 EST , CC: Dr. Solis Harrington DO; Dr. Mat Nance MD [employer]ier: Signed Normal [facility] MRI BRAIN W/ + W/O CONTRASTo n 12-22-2023 MRI BRAIN W/ + W/O CONTRAST ORIGINAL EXAMINATION: MRI OF THE BRAIN WITHOUT AND WITH CONTRAST 12/22/2023 3:17 pm TECHNIQUE: Multiplanar multisequence MRI of the head/brain was performed without and with the administration of intravenous contrast. COMPARISON: None. HISTORY: ORDERING SYSTEM PROVIDED HISTORY: Reason for Exam: HEADACHE R51.9 FINDINGS: INTRACRANIAL STRUCTURES/VENTRICLES: There is no acute infarct. No mass effect or midline shift. No evidence of an acute intracranial hemorrhage. The ventricles and sulci are normal in size and configuration. The sellar/suprasellar regions appear unremarkable. The normal signal voids within the major intracranial vessels appear maintained. No abnormal focus of enhancement is seen within the brain. There are a few small foci within the subcortical white matter that demonstrate T2 FLAIR hyperintensity. This is nonspecific but likely sequela of mild microvascular ischemic disease. ORBITS: The visualized portion of the orbits demonstrate no acute abnormality. SINUSES: Small amount of fluid and mucosal thickening in the left maxillary sinus. The other visualized paranasal sinuses and mastoid air cells demonstrate no acute abnormality. BONES/SOFT TISSUES: The bone marrow signal intensity appears normal. The soft tissues demonstrate no acute abnormality. IMPRESSION: No acute intracranial abnormality. I have personally reviewed the images of this examination and agree with the resident's findings and interpretation. Interpreted by: Jan Villalta MD Preliminary Report By: Justice Aburto Electronically signed By Jan Villalta MD Dictated Date: 12/22/2023 3:21:33 PM Prelim Date: 12/22/2023 3:31:43 PM Sign Date: 12/22/2023 3:31:43 PM Ordering Provider: CLAIR Conrad [facility] Basophil percentageOrdered B y: Amaury Donahueano on 04-13-2023 Chloride [Moles/Vol] 102 mmol/L 98-[address] [facility] Glucose [Mass/Vol] 164 mg/dL 74-106 [facility] Comment on above: Fasting Glucose resu lt greater than or equal to 126 mg/dL suggests DIABETES MELLITUS per A.D.A. criteria. Potassium [Moles/Vol] 4.1 mmol/L 3.5-5.1 [facility] Sodium [Moles/Vol] 136 mmol/L 136-145 [facility] - Chemistry and C hemistry - challengeOrdered By: Amaury Casiano on 04-13-2023 CO2 [Moles/Vol] 29.0 mmol/L 21.0-32.0 [facility] Urea nitrogen/Creatinine [Mass ratio] 14.0 mg/mg 10-20 [facility] No Panel InformationOrdered By: Amaury Casiano on 04-13-2023 Estimated GFR (MDRD) Amer 68 mL/min >60 [facility] Comment on above: GFR Calc Estimated GFR (MDRD) Non-Af Amer 56 mL/min >60 [facility] Comment on above: Non- GFR Calc Serum or plasma calcium jacki urement (mass/volume)Ordered By: Amaury Casiano on 04-13-2023 Calcium [Mass/Vol] 9.2 mg/dL 8.5-10.1 [facility] Serum or plasma creatinine m easurement (mass/volume)Ordered By: Amaury Casiano on 04-13-2023 Creatinine [Mass/Vol] 1.36 mg/dL 0.70-1.30 [facility] Comment on above: The validity of the calculated GFR & GFRAA in patients over 70 years has not been determined. Clinical correlation is essential. Serum or plasma urea nitroge n measurement (mass/volume)Ordered By: Amaury Casiano on 04-13-2023 Urea nitrogen [Mass/Vol] 19 mg/dL 7-18 [facility] Thin prep Papanicolaou smear with manual screeningOrdered By: Amaury Casiano on 04-13-2023 Thin prep Papanicolaou smear with manual screening 5 5-15 [facility] Absolute lymphocyte countOrd ered By: Mat Nance on 11-24-2022 Lymphocytes Auto (Unsp spec) [#/Vol] 1.72 10*3/uL 0.83-4.51 [facility] Basophil percentageOrdered B y: Mat Nance on 11-24-2022 Basophil percentage TNP [facility] Comment on above: Test not performed Basophils/100 WBC (Bld) 0.7 % 0-1 [facility] Bilirubin [Mass/Vol] 0.50 mg/dL 0.20-1.[address] [facility] Comment on above: For patients on eltr ombopag therapy, use of Dimension [place] TBIL is not recommended. Eosinophils/100 WBC (Bld) 2.3 % 0-5 [facility] Neutrophils (Bld) [#/Vol] 4.3 10*3/uL 2.0-7.7 [facility] Neutrophils/100 WBC (Bld) 62.6 % 47-70 [facility] Protein [Mass/Vol] 6.8 g/dL 6.4-8.2 [facility] WBC (Bld) [#/Vol] 6.9 10*3/uL 4.4-11.0 [facility] Blood erythrocytes count (nu mber/volume)Ordered By: Mat Nance on 11-24-2022 RBC (Bld) [#/Vol] 3.95 10*6/uL 4.6-6.2 [facility] Blood hemoglobin measurement (mass/volume)Ordered By: Mat Nance on 11-24-2022 Hemoglobin (Bld) [Mass/Vol] 12.9 g/dL 13.0-16.5 [facility] Blood lymphocytes/100 leukoc ytesOrdered By: Mat Nance on 11-24-2022 Lymphocytes/100 WBC (Bld) 24.8 % 19-41 [facility] Blood monocytes/100 leukocyt esOrdered By: Mat Nance on 11-24-2022 Monocytes/100 WBC (Bld) 9.5 % 0-10 [facility] Blood platelet mean volumeOr dered By: Mat Nance on 11-24-2022 Platelet mean volume (Bld) [Entitic vol] 9.6 fL 6.2-12.0 [facility] Determination of erythrocyte mean corpuscular volume (MCV)Ordered By: Mat Nance on 11-24-2022 MCV (RBC) [Entitic vol] 91.9 fL 80-94 [facility] Direct bilirubinOrdered By: Mat Nance on 11-24-2022 Bilirubin.direct [Mass/Vol] 0.13 mg/dL 0.00-0.30 [facility] Hematocrit Auto (Bld) [Volum e fraction]Ordered By: Mat Nance on 11-24-2022 Hematocrit (Bld) [Volume fraction] 36.3 % 40-54 [facility] - Chemistry and C hemistry - challengeOrdered By: Mat Nance on 11-24-2022 ALP [Catalytic activity/Vol] 87 U/L 45-117 [facility] ALT [Catalytic activity/Vol] 21 U/L 16-61 [facility] Globulin (S) [Mass/Vol] 3.0 g/dL 2.2-4.2 [facility] - Hematology and Cell countsOrdered By: Mat Nance on 11-24-2022 Erythrocyte distribution width (RBC) [Entitic vol] 43.4 fL 35.1-43.9 [facility] Erythrocyte distribution width (RBC) [Ratio] 13.0 % 11.6-14.6 [facility] Immature granulocytes/100 WBC (Bld) 0.100 % 0.0-0.9 [facility] Comment on above: IG% - Immature Granu locytes (promyelocytes, myelocytes and metamyelocytes) > 1% indicates that a LEFT SHIFT is Present. MCH (RBC) [Entitic mass] 32.7 pg 27.0-32.0 [facility] Nucleated RBC/100 WBC (Bld) [Ratio] 0 % 0-5 [facility] MCHC Auto (RBC) [Mass/Vol]Or dered By: Mat Nance on 11-24-2022 MCHC (RBC) [Mass/Vol] 35.5 g/dL 32-36 [facility] No Panel InformationOrdered By: Mat Nance on 11-24-2022 Addendum Document Comment . [facility] Comment on above: The quantitative ran ge of this assay is 15 IU/mL to 100million IU/mL.Performed at: [employer] [id number] Director: Ranjan Castorena PhD, Phone: [phone] at: [facility] [employer] [id number] Director: Carroll Butts MD, Phone: [phone] Platelets bldOrdered By: Georges Nance on 11-24-2022 Platelets (Bld) [#/Vol] 186 10*3/uL 150-450 [facility] Qualitative QuantiFERON-TB g old in tube testOrdered By: Mat Nance on 11-24-2022 M. tuberculosis tuberculin stim IFN-g Ql (Bld) 0.65 IU/mL . [facility] Serum or plasma albumin jacki urement (mass/volume)Ordered By: Mat Nance on 11-24-2022 Albumin [Mass/Vol] 3.8 g/dL 3.2-5.0 [facility] Serum or plasma hepatitis C virus RNA measurement by probe and target amplification mOrdered By: Mat Nance on 11-24-2022 HCV RNA JOLENE+probe Qn Not detected . [facility] Thin prep Papanicolaou smear with manual screeningOrdered By: Mat Nance on 11-24-2022 Thin prep Papanicolaou smear with manual screening 13 U/L 15-37 [facility] Thin prep Papanicolaou smear with manual screening Comment . [facility] Comment on above: QuantiFERON-TB Gold Plus is a qualitative indirect test forM tuberculosis infection (including disease) and isintended for use in conjunction with risk assessment,radiography, and other medical and diagnostic evaluations.The QuantiFERON-TB Gold Plus result is determined bysubtracting the Nil value from either TB antigen (Ag)value. The Mitogen tube serves as a control for the test. Thin prep Papanicolaou smear with manual screening 0.66 IU/mL . [facility] Thin prep Papanicolaou smear with manual screening 0.05 IU/mL . [facility] Thin prep Papanicolaou smear with manual screening > 10.00 IU/mL . [facility] Thin prep Papanicolaou smear with manual screening Positive Negative [facility] Comment on above: A response to M tube rculosis antigens has been detected.If patient is at low risk for Tuberculosis, the resultshould be interpreted with caution and repeat testing on anew specimen is recommended (ATS/IDSA/CDC Clinical PracticeGuidelines, 2017). False positives can also occur due toinfection by M kansasii, Genesis benavides, or Genesis wilson.The specimen received for QuantiFERON testing was incubatedby the ordering institution. Specific procedures outlinedin our Directory of Services and in the package insert forthe QuantiFERON Gold (In Tube) test must be followed toenable for proper stimulation of cells for the productionof interferon gamma. Chemiluminescence immunoassaymethodology No Panel InformationOrdered By: Amaury Casiano on 09-26-2022 Prostate Specific Antigen Screen 0.32 ng/mL 0.00-4.00 [facility] Comment on above: This test was perfor med using the TPSA assay method for [employer] chemistry system. Values obtained with differentassay methods cannot be used interchangably.When changing PSA assays in the course of monitoring apatient, additional sequential testing should be carriedout to confirm baseline values. Whole blood hemoglobin A1c/t otal hemoglobin ratio (mass fraction)Ordered By: Lie Vasquez on 08-12-2022 HbA1c (Bld) [Mass fraction] 6.2 % 3.8-5.6 [facility] Comment on above: Normal < 5.7 % Predi abetic 5.7 - 6.4 % Diabetic >or= 6.5 % Please note range changes. No Panel Informationon 02-16 Urine Microalbumin/Creatin ine Ratio 24.0 mg/g CRE <30 [facility] Work Phone: Thin prep Papanicolaou smear with manual screeningon 02-16-2022 Thin prep Papanicolaou smear with manual screening 36.0 mg/L NO RANGE EST. [facility] Work Phone: Urine creatinine measurement (mass/volume)on 02-16-2022 Creatinine (U) [Mass/Vol] 150.00 mg/dL NO RANGE EST. [facility] Work Phone: Laboratory - Hematology and Cell countson 02-07-2022 HbA1c (Bld) [Mass fraction] 6.1 % 4.2-6.3 [facility] Work Phone: Absolute lymphocyte counton 11-30-2021 Lymphocytes Auto (Unsp spec) [#/Vol] 2.01 10*3/uL 0.83-4.51 [facility] Work Phone: Basophil percentageon 2021 Basophil percentage TNP [facility] Work Phone: Comment on above: Test not performed Basophils/100 WBC (Bld) 0.8 % 0-1 [facility] Work Phone: Bilirubin [Mass/Vol] 0.50 mg/dL 0.20-1.[address] [facility] Work Phone: Comment on above: For patients on eltr ombopag therapy, use of Dimension [place] TBIL is not recommended. Eosinophils/100 WBC (Bld) 1.8 % 0-5 [facility] Work Phone: Neutrophils (Bld) [#/Vol] 3.6 10*3/uL 2.0-7.7 [facility] Work Phone: Neutrophils/100 WBC (Bld) 55.7 % 47-70 [facility] Work Phone: Protein [Mass/Vol] 7.4 g/dL 6.4-8.2 [facility] Work Phone: WBC (Bld) [#/Vol] 6.5 10*3/uL 4.4-11.0 [facility] Work Phone: Blood erythrocytes count (nu mber/volume)on 11-30-2021 RBC (Bld) [#/Vol] 4.17 10*6/uL 4.6-6.2 [facility] Work Phone: Blood hemoglobin measurement (mass/volume)on 11-30-2021 Hemoglobin (Bld) [Mass/Vol] 13.3 g/dL 13.0-16.5 [facility] Work Phone: Blood lymphocytes/100 leukoc yteson 11-30-2021 Lymphocytes/100 WBC (Bld) 30.8 % 19-41 [facility] Work Phone: Blood monocytes/100 leukocyt eson 11-30-2021 Monocytes/100 WBC (Bld) 10.7 % 0-10 [facility] Work Phone: Blood platelet mean volumeon 11-30-2021 Platelet mean volume (Bld) [Entitic vol] 9.7 fL 6.2-12.0 [facility] Work Phone: Determination of erythrocyte mean corpuscular volume (MCV)on 11-30-2021 MCV (RBC) [Entitic vol] 91.8 fL 80-94 [facility] Work Phone: Direct bilirubinon Bilirubin.direct [Mass/Vol] 0.13 mg/dL 0.00-0.30 [facility] Work Phone: Hematocrit Auto (Bld) [Volum e fraction]on 11-30-2021 Hematocrit (Bld) [Volume fraction] 38.3 % 40-54 [facility] Work Phone: Laboratory - Chemistry and C hemistry - challengeon 11-30-2021 ALP [Catalytic activity/Vol] 66 U/L 45-117 [facility] Work Phone: ALT [Catalytic activity/Vol] 19 U/L 16-61 [facility] Work Phone: Globulin (S) [Mass/Vol] 3.3 g/dL 2.2-4.2 [facility] Work Phone: Laboratory - Hematology and Cell countson 11-30-2021 Erythrocyte distribution width (RBC) [Entitic vol] 45.0 fL 35.1-43.9 [facility] Work Phone: Erythrocyte distribution width (RBC) [Ratio] 13.3 % 11.6-14.6 [facility] Work Phone: Immature granulocytes/100 WBC (Bld) 0.200 % 0.0-0.9 [facility] Work Phone: Comment on above: IG% - Immature Granu locytes (promyelocytes, myelocytes and metamyelocytes) > 1% indicates that a LEFT SHIFT is Present. MCH (RBC) [Entitic mass] 31.9 pg 27.0-32.0 [facility] Work Phone: Nucleated RBC/100 WBC (Bld) [Ratio] 0 % 0-5 [facility] Work Phone: MCHC Auto (RBC) [Mass/Vol]on 11-30-2021 MCHC (RBC) [Mass/Vol] 34.7 g/dL 32-36 [facility] Work Phone: No Panel Informationon 11-30 Addendum Document Comment . [facility] Work Phone: Comment on above: The quantitative ran ge of this assay is 15 IU/mL to 100million IU/mL.Performed at: [employer] [id number] Director: Ranjan Castorena PhD, Phone: [phone] at: [facility] [id number] Director: Carroll Butts MD, Phone: [phone] Platelets bldon 11-30-2021 Platelets (Bld) [#/Vol] 203 10*3/uL 150-450 [facility] Work Phone: Qualitative QuantiFERON-TB g old in tube teston 11-30-2021 M. tuberculosis tuberculin stim IFN-g Ql (Bld) 0.43 IU/mL . [facility] Work Phone: Serum or plasma albumin jacki urement (mass/volume)on 11-30-2021 Albumin [Mass/Vol] 4.1 g/dL 3.2-5.0 [facility] Work Phone: Serum or plasma hepatitis C virus RNA measurement by probe and target amplification mon 11-30-2021 HCV RNA JOLENE+probe Qn Not detected . [facility] Work Phone: Thin prep Papanicolaou smear with manual screeningon 11-30-2021 Thin prep Papanicolaou smear with manual screening 13 U/L 15-37 [facility] Work Phone: Thin prep Papanicolaou smear with manual screening Comment . [facility] Work Phone: Comment on above: QuantiFERON-TB Gold Plus is a qualitative indirect test forM tuberculosis infection (including disease) and isintended for use in conjunction with risk assessment,radiography, and other medical and diagnostic evaluations.The QuantiFERON-TB Gold Plus result is determined bysubtracting the Nil value from either TB antigen (Ag)value. The Mitogen tube serves as a control for the test. Thin prep Papanicolaou smear with manual screening 0.37 IU/mL . [facility] Work Phone: Thin prep Papanicolaou smear with manual screening 0.14 IU/mL . [facility] Work Phone: Thin prep Papanicolaou smear with manual screening > 10.00 IU/mL . [facility] Work Phone: Thin prep Papanicolaou smear with manual screening Negative Negative [facility] Work Phone: Comment on above: No response to M tub erculosis antigens detected.Infection with M tuberculosis is unlikely, but high riskindividuals should be considered for additional testing(ATS/IDSA/CDC Clinical Practice Guidelines, 2017). Thereference range is an Antigen minus Nil result of <0.35IU/mL.The specimen received for QuantiFERON testing was incubatedby the ordering institution. Specific procedures outlinedin our Directory of Services and in the package insert forthe QuantiFERON Gold (In Tube) test must be followed toenable for proper stimulation of cells for the productionof interferon gamma. Chemiluminescence immunoassaymethodology Absolute lymphocyte counton 11-25-2021 Lymphocytes Auto (Unsp spec) [#/Vol] 1.48 10*3/uL 0.83-4.51 [facility] Work Phone: Basophil percentageon 2021 Basophils/100 WBC (Bld) 0.9 % 0-1 [facility] Work Phone: Chloride [Moles/Vol] 108 mmol/L 98-[address] [facility] Work Phone: Eosinophils/100 WBC (Bld) 2.4 % 0-5 [facility] Work Phone: Glucose [Mass/Vol] 117 mg/dL 74-106 [facility] Work Phone: Comment on above: Fasting Glucose resu lt from 100 to 125 mg/dL suggests IMPAIRED HOMEOSTASIS per A.D.A. criteria. Neutrophils (Bld) [#/Vol] 2.4 10*3/uL 2.0-7.7 [facility] Work Phone: Neutrophils/100 WBC (Bld) 51.9 % 47-70 [facility] Work Phone: Potassium [Moles/Vol] 3.8 mmol/L 3.5-5.1 [facility] Work Phone: Sodium [Moles/Vol] 143 mmol/L 136-145 [facility] Work Phone: WBC (Bld) [#/Vol] 4.5 10*3/uL 4.4-11.0 [facility] Work Phone: Blood erythrocytes count (nu mber/volume)on 11-25-2021 RBC (Bld) [#/Vol] 4.24 10*6/uL 4.6-6.2 [facility] Work Phone: Blood hemoglobin measurement (mass/volume)on 11-25-2021 Hemoglobin (Bld) [Mass/Vol] 13.3 g/dL 13.0-16.5 [facility] Work Phone: Blood lymphocytes/100 leukoc yteson 11-25-2021 Lymphocytes/100 WBC (Bld) 32.7 % 19-41 [facility] Work Phone: Blood monocytes/100 leukocyt eson 11-25-2021 Monocytes/100 WBC (Bld) 11.9 % 0-10 [facility] Work Phone: Blood platelet mean volumeon 11-25-2021 Platelet mean volume (Bld) [Entitic vol] 9.9 fL 6.2-12.0 [facility] Work Phone: Determination of erythrocyte mean corpuscular volume (MCV)on 11-25-2021 MCV (RBC) [Entitic vol] 92.0 fL 80-94 [facility] Work Phone: Hematocrit Auto (Bld) [Volum e fraction]on 11-25-2021 Hematocrit (Bld) [Volume fraction] 39.0 % 40-54 [facility] Work Phone: Laboratory - Chemistry and C hemistry - challengeon 11-25-2021 CO2 [Moles/Vol] 29.0 mmol/L 21.0-32.0 [facility] Work Phone: Urea nitrogen/Creatinine [Mass ratio] 13.1 mg/mg 10-20 [facility] Work Phone: Laboratory - Hematology and Cell countson 11-25-2021 Erythrocyte distribution width (RBC) [Entitic vol] 44.8 fL 35.1-43.9 [facility] Work Phone: Erythrocyte distribution width (RBC) [Ratio] 13.2 % 11.6-14.6 [facility] Work Phone: Immature granulocytes/100 WBC (Bld) 0.200 % 0.0-0.9 [facility] Work Phone: Comment on above: IG% - Immature Granu locytes (promyelocytes, myelocytes and metamyelocytes) > 1% indicates that a LEFT SHIFT is Present. MCH (RBC) [Entitic mass] 31.4 pg 27.0-32.0 [facility] Work Phone: Nucleated RBC/100 WBC (Bld) [Ratio] 0 % 0-5 [facility] Work Phone: MCHC Auto (RBC) [Mass/Vol]on 11-25-2021 MCHC (RBC) [Mass/Vol] 34.1 g/dL 32-36 [facility] Work Phone: No Panel Informationon 11-25 Estimated GFR (MDRD) Amer 98 mL/min >60 [facility] Work Phone: Comment on above: GFR Calc Estimated GFR (MDRD) Non-Af Amer 81 mL/min >60 [facility] Work Phone: Comment on above: Non- GFR Calc Platelets bldon 11-25-2021 Platelets (Bld) [#/Vol] 188 10*3/uL 150-450 [facility] Work Phone: Serum or plasma calcium jacki urement (mass/volume)on 11-25-2021 Calcium [Mass/Vol] 9.1 mg/dL 8.5-10.1 [facility] Work Phone: Serum or plasma creatinine m easurement (mass/volume)on 11-25-2021 Creatinine [Mass/Vol] 0.99 mg/dL 0.70-1.30 [facility] Work Phone: Comment on above: The validity of the calculated GFR & GFRAA in patients over 70 years has not been determined. Clinical correlation is essential. Serum or plasma urea nitroge n measurement (mass/volume)on 11-25-2021 Urea nitrogen [Mass/Vol] 13 mg/dL 7-18 [facility] Work Phone: Thin prep Papanicolaou smear with manual screeningon 11-25-2021 Thin prep Papanicolaou smear with manual screening 6 5-15 [facility] Work Phone: Whole blood hemoglobin A1c/t otal hemoglobin ratio (mass fraction)on 11-25-2021 HbA1c (Bld) [Mass fraction] 6.0 % 3.8-5.6 [facility] Work Phone: Comment on above: Normal < 5.7 % Predi abetic 5.7 - 6.4 % Diabetic >or= 6.5 % Please note range changes. Basophil percentageon 2021 Bilirubin [Mass/Vol] 0.40 mg/dL 0.20-1.[address] [facility] Work Phone: Comment on above: For patients on eltr ombopag therapy, use of Dimension [place] TBIL is not recommended. Cholesterol [Mass/Vol] 179 mg/dL <200 [facility] Work Phone: Comment on above: <200 mg/dL Desirable 200-240 mg/dL Borderline >240 mg/dL High Risk Protein [Mass/Vol] 7.0 g/dL 6.4-8.2 [facility] Work Phone: Triglyceride [Mass/Vol] 184 mg/dL <199 [facility] Work Phone: Comment on above: The drugs N-Acetylcy steine and Metamizole may falsely depress this assay.Serum Triglycerides Reference Interval Normal <150 mg/dL Borderline high 150 - 199 mg/dL High 200 - 499 mg/dL Very High > or = 500 mg/dL Direct bilirubinon Bilirubin.direct [Mass/Vol] 0.13 mg/dL 0.00-0.30 [facility] Work Phone: Laboratory - Chemistry and C hemistry - challengeon 09-30-2021 ALP [Catalytic activity/Vol] 74 U/L 45-117 [facility] Work Phone: ALT [Catalytic activity/Vol] 19 U/L 16-61 [facility] Work Phone: Globulin (S) [Mass/Vol] 3.2 g/dL 2.2-4.2 [facility] Work Phone: Serum or plasma albumin jacki urement (mass/volume)on 09-30-2021 Albumin [Mass/Vol] 3.8 g/dL 3.2-5.0 [facility] Work Phone: Serum or plasma cholesterol in HDL measurement (mass/volume)on 09-30-2021 Cholesterol in HDL [Mass/Vol] 51 mg/dL >40 [facility] Work Phone: Comment on above: The drugs N-Acetylcy steine and Metamizole may falsely depress this assay. Reference Range HDL <40 mg/dL Low HDL Cholesterol HDL >or= 60 mg/dL High HDL Cholesterol Serum or plasma cholesterol in VLDL measurement (mass/volume)on 09-30-2021 Cholesterol in VLDL [Mass/Vol] 37 mg/dL 5-40 [facility] Work Phone: Serum or plasma low density lipoprotein (LDL) cholesterol measurement (mass/volume)on 09-30-2021 Cholesterol in LDL [Mass/Vol] 91 mg/dL 0-130 [facility] Work Phone: Thin prep Papanicolaou smear with manual screeningon 09-30-2021 Thin prep Papanicolaou smear with manual screening 15 U/L 15-37 [facility] Work Phone: CNOVon 10-14-2020 CNOV Office Visit (PSYLWM ) -------- CAROLINE BECKETT ([id number]) 1960 M IPA Date Time Provider Department 10/14/20 11:00 AM KARSON BASS PSYLWM During your visit today, we recorded the following information about you: Karson Bass, PhD 10/14/2020 12:59 PM Signed [facility] Progress Note Caroline Beckett 10/14/2020 [id number] Provider: Karson Bass, PhD CPT Code: 43953 Psychiatric diagnostic evaluation Time: Approximately 50 minutes was spent in therapy. Parties Present: Patient Patient Presentation/Concerns: INITIAL VISIT Pt born in [place] middle of 6 sibs... grew up w mom... father was a drunk and Aunt... didnt know he was dad until 14yo ETOH and Drugs and 3mo at most holding a job ... SOBER since 1988 40 yrs and worked at [employer] 37 years 1 child together and she has 3 neuropathy and takes 1/2 Tramadol in evenings Pt put on probation for speaking up to boss and a back stabbing coworker... first write up in all these years PLAN: worked w [employer] technique about when and how to respond when something actually is ethical or safety issue MEMORY: pt presents w concerns he doesnt remember short term things as well as in past he doesnt report it affecting any important part of relationship or work and brief test was no problem PLAN: keep an eye on it and discussed how memory can change agent time and that we tend to remember things important discussed mnemonics, calendaring, and notes Just completed a [employer] contract that is good re money and benefits Mental Status: Mood: variable Affect: mood-congruent Thoughts/Associations:go al directed Suicidal/Homicidal Ideation: None expressed or evidenced Other Observations: None Therapy Focus Self-care, Stress management, Mood/affect regulation, Self-esteem and Coping with chronic illness MEDICATIONS: Per medical record: Current Outpatient Medications Medication Sig - metFORMIN (GLUCOPHAGE) 500 mg tablet Take 2 tablets by mouth twice daily. - insulin glargine (LANTUS) 100 unit/mL injection Inject 15 Units subcutaneously daily at bedtime. - Insulin Syringe-Needle U-100 (BD INSULIN SYRINGE ULTRAFINE) 0.3 mL 31 x 5/16 syrg use with insulin injection once daily - ACETAMINOPHEN (TYLENOL ARTHRITIS ORAL) Take by mouth. - ramipril 5 mg capsule Take 10 mg by mouth once daily. - lansoprazole (PREVACID) 30 mg capsule Take 1 capsule by mouth once daily. - sertraline (ZOLOFT) 50 mg ORAL tablet Take one(1) tablet daily. No current facility-administered medications for this visit. Psychiatric Medication Issues: see med record DIAGNOSIS: [place] I: Adjustment Disorder (work situation, concerns about memory) r/o short term memory issue Drug and ETOH history .. sober for many years [place] II: deferred [place] III: see med record [place] IV: work conflict, memory concern [place] V: 48-52 Treatment Modality/Interventions: Cognitive Behavioral Reassurance/Supportive Insight oriented Problem solving Processing of emotions Communication skills training Psychoeducation TREATMENT ASSESSMENT/PROGRESS: . Progressing satisfactorily. TREATMENT PLAN/GOALS: Continue in therapy focusing on self-care, interpersonal relationships, improving communication, affect management, self-esteem and neuropathy . Next appointment: as scheduled Karson Bass, PhD Referring Provider: MAXI SELF (HISTORICAL) [[id number]] Allergies As of Date: 10/14/2020 Noted Allergy Reaction ASA (SALICYLATES) 07/02/2007 4 - Hives IBUPROFEN 07/02/2007 4 - Hives LOVASTATIN 04/10/2009 Comments: Muscle aches TOPROL XL (METOPROLOL SUCCINATE) 12/24/2008 Comments: it makes me angry Date Reviewed: 11/10/2015 Reviewed by: Maye Fall LPN - Fully Assessed Primary Visit Diagnosis:Adjustment disorder with other symptom [F43.29] Prescriptions as of 10/14/2020 - metFORMIN (GLUCOPHAGE) 500 mg tablet Take 2 tablets by mouth twice daily. - insulin glargine (LANTUS) 100 unit/mL injection Inject 15 Units subcutaneously daily at bedtime. - Insulin Syringe-Needle U-100 (BD INSULIN SYRINGE ULTRAFINE) 0.3 mL 31 x 5/16 syrg use with insulin injection once daily - ACETAMINOPHEN (TYLENOL ARTHRITIS ORAL) Take by mouth. - ramipril 5 mg capsule Take 10 mg by mouth once daily. - lansoprazole (PREVACID) 30 mg capsule Take 1 capsule by mouth once daily. - sertraline (ZOLOFT) 50 mg ORAL tablet Take one(1) tablet daily. Problem List As Of Date 10/14/2020 Noted Resolved CHRONIC HEPATITIS NOS [K73.9] IRRITABLE COLON [K58.9] CONSTIPATION NOS [K59.00] DIAPHRAGMATIC HERNIA [K44.9] ACUTE GASTRITIS W/O HEMORRHAGE [K29.00] REFLUX ESOPHAGITIS [K21.00] DIARRHEA NOS [R19.7] 07/26/2007 Type II or unspecified type diabetes mellitus w*06/30/2008 11/11/2015 PURE HYPERCHOLESTEROLEM [E78.00] 06/30/2008 PSORIASIS-----scalp [L4 (more content not included)... Normal [facility] Lab Report: Basic Metabolic Profile (BMP)on 11-12-2016 Anion gap 4 mmol/L Low 5-15 [facility] Work Phone: BUN/Creatinine Ratio 9.2 RATIO Low 10-20 [facility] Work Phone: Calcium 8.6 mg/dL Invalid Interpretation Code 8.5-10.1 [facility] Work Phone: Chloride 107 mmol/L Invalid Interpretation Code 98-107 [facility] Work Phone: CO2 29.0 mmol/L Invalid Interpretation Code 21.0-32.0 [facility] Work Phone: Creatinine 0.98 mg/dL Invalid Interpretation Code 0.70-1.30 [facility] Work Phone: eGFR (non-black) 102 mL/min/{1.73_m2} Invalid Interpretation Code >60 [facility] Work Phone: eGFR (non-black) 84 mL/min/{1.73_m2} Invalid Interpretation Code >60 [facility] Work Phone: Glucose mass conc 156 mg/dL High 70-110 [facility] Work Phone: Potassium molar conc 4.4 mmol/L Invalid Interpretation Code 3.5-5.1 [facility] Work Phone: Sodium 140 mmol/L Invalid Interpretation Code 136-145 [facility] Work Phone: Urea nitrogen 9 mg/dL Invalid Interpretation Code 7-18 [facility] Work Phone: Lab Report: Hemoglobin A1con 11-12-2016 Hemoglobin A1c/Hemoglobin.total mass fraction (Bld) 7.9 % High 4.2-6.3 [facility] Work Phone: Lab Report: Lipid Profileon 11-12-2016 Cholesterol 212 mg/dL High 200 [facility] Work Phone: HDL Cholesterol 55 mg/dL Invalid Interpretation Code [facility] Work Phone: LDL Cholesterol 130 mg/dL Invalid Interpretation Code 0-130 [facility] Work Phone: Triglyceride 133 mg/dL Invalid Interpretation Code [facility] Work Phone: very low density lipoproteins 27 mg/dL Invalid Interpretation Code 5-40 [facility] Work Phone: Lab Report: Liver Profileon 11-12-2016 Alanine aminotransferase (ALT) 24 U/L Invalid Interpretation Code 12-78 [facility] Work Phone: Albumin 3.7 g/dL Invalid Interpretation Code 3.4-5.0 [facility] Work Phone: Alkaline phosphatase (ALP) 63 U/L Invalid Interpretation Code 45-117 [facility] Work Phone: Aspartate aminotransferase (AST) 15 U/L Invalid Interpretation Code 15-37 [facility] Work Phone: Bilirubin (direct) 0.18 mg/dL Invalid Interpretation Code 0.00-0.30 [facility] Work Phone: Bilirubin (total) 0.60 mg/dL Invalid Interpretation Code 0.20-1.00 [facility] Work Phone: Globulin 3.2 g/dL Invalid Interpretation Code 2.3-3.5 [facility] Work Phone: Protein 6.9 g/dL Invalid Interpretation Code 6.4-8.2 [facility] Work Phone: Office Visit: Diabetes Follo w Upon 11-10-2016 Documentation of current medications (procedure) Done Invalid Interpretation Code [facility] Work Phone: Office Visiton 10-06-2016 Fall risk assessment Fall risk assessment Invali d Interpretation Code [facility] Work Phone: Clinical Lists Update: Prelo medical insurance coder 09-30-2016 Left ventricular Ejection fraction 55 % Invalid Interpretation Code [facility] Work Phone: Office Visit: Follow up: Joslyn lofton 08-11-2016 Dietary management education, guidance, and counseling (procedure) yes Invalid Interpretation Code [facility] Work Phone: Tobacco smoking status NHIS Never Invalid Interpretation Code [facility] Work Phone: Tobacco use HS Former smoker Invalid Interpretation Code [facility] Work Phone: Lab Report: Quantiferon TB-G oldon 06-26-2016 QFT TB GOLD Positive High Negative [facility] Work Phone: QFT TB INTER Comment Invalid Interpretation Code . [facility] Work Phone: Lab Report: Comprehensive Me tabolic Profilon 06-18-2016 Albumin/Globulin Ratio 1.2 {ratio} Invalid Interpretation Code 0.9-2.4 [facility] Work Phone: Lab Report: Microalb:Creat R atio,Random URon 06-18-2016 ACR (microalbumin/creati nine) ratio 16.5 MG/G CRE Invalid Interpretation Code <30 mg/g CRE [facility] Work Phone: Urine, creatinine 234.00 mg/dL Invalid Interpretation Code NO RANGE EST. [facility] Work Phone: Urine, microalbumin 3.87 mg/dL Invalid Interpretation Code Units converted. See lab report for original value. [facility] Work Phone: Chart Maintenanceon 05-21-19 17 Urine, microalbumin 38.7 mg/L Invalid Interpretation Code [facility] Work Phone: [facility] 05-11-2016 Adolescent depression screening assessment Adolescent depression screening assessment Invalid Interpretation Code [facility] Work Phone: Adult depression screening assessment Adult depression screening assessment Invalid Interpretation Code [facility] Work Phone: Fall risk assessment No Invalid Interpretation Code [facility] Work Phone: Lab Report: PSA,Total - Magy al Screenon 10-08-2014 PSA,TOT SCREEN 0.19 ng/mL Invalid Interpretation Code 0.00-4.00 [facility] Work Phone: Lab Report: Thyroid Stim Hor olayinka (TSH)on 10-08-2014 Thyroid stimulating hormone (TSH) 0.90 u[iU]/mL Invalid Interpretation Code 0.358-3.74 [facility] Work Phone: Office Visit: [facility] 03-13-19 15 cardiac risk group C Invalid Interpretation Code [facility] Work Phone: General cardiovascular disease 10Y risk [#] [place].D'Agostin o N/A Invalid Interpretation Code [facility] Work Phone: Replaced Document: Justyn Mendoza CG Observationson 03-13-2014 EKG QRS axis 13 deg Invalid Interpretation Code [facility] Work Phone: Interpretation Sinus Rhythm WITHIN NORMAL LIMITS Invalid Interpretation Code [facility] Work Phone: P [place] 60 deg Invalid Interpretation Code [facility] Work Phone: IA Interval 122 ms Invalid Interpretation Code [facility] Work Phone: Pulse (Heart Rate) 68 /min Invalid Interpretation Code [facility] Work Phone: QRS Duration 94 ms Invalid Interpretation Code [facility] Work Phone: QT Interval new path ms Invalid Interpretation Code [facility] Work Phone: T [place] -1 deg Invalid Interpretation Code [facility] Work Phone: Replaced Document: Justyn Mendoza CG Observationson 01-08-2013 Pulse (Heart Rate) 390 ms Invalid Interpretation Code [facility] Work Phone: Clinical Lists Update: Prelo medical insurance coder 07-19-2011 basophils as percent of blood leukocytes, manual count 0.6 % Invalid Interpretation Code [facility] Work Phone: eosinophils as percent of blood leukocytes, manual count 2.0 % Invalid Interpretation Code [facility] Work Phone: Erythrocytes (RBC) 4.47 10*6/uL [facility] Work Phone: Hematocrit (HCT) 41.7 % Invalid Interpretation Code [facility] Work Phone: Hemoglobin mass conc (Bld) 14.6 g/dL Invalid Interpretation Code [facility] Work Phone: Lymphocytes/100 leukocytes 39.4 % Invalid Interpretation Code [facility] Work Phone: MCH 32.7 pg High [facility] Work Phone: MCV 93.2 fL Invalid Interpretation Code [facility] Work Phone: Monocytes/100 leukocytes 12.7 % High [facility] Work Phone: neutrophils, band form as percent of blood leukocytes, manual count 45.3 % Low [facility] Work Phone: Platelets 169 10*3/mm3 Invalid Interpretation Code [facility] Work Phone: WBC (Leukocytes) 5.5 10*3/uL Invalid Interpretation Code [facility] Work Phone: Vital Signs Date Time Vital Sign Value Performing Clinician Facility 10-18-2024 09:37-0400 Body height 185.[address] Solis Harrington DO Work Phone: [facility] 10-18-2024 09:37-0400 Body mass index (BMI) [Ratio] 27.7 kg/m2 Dr. Solis Harrington DO Work Phone: [facility] 10-18-2024 09:37-0400 Body weight 95.[address] Solis Harrington DO Work Phone: [facility] 10-18-2024 09:37-0400 Diastolic blood pressure 82 mm[Hg] Dr. Solis Harrington DO Work Phone: [facility] 10-18-2024 09:37-0400 Heart rate 71 /min Dr. Solis Harrington DO Work Phone: [facility] 10-18-2024 09:37-0400 SaO2% (BldA) [Mass fraction] 96 % Dr. Solis Harrington DO Work Phone: [facility] 10-18-2024 09:37-0400 Systolic blood pressure 162 mm[Hg] Dr. Solis Harrington DO Work Phone: [facility] 03-31-2023 15:15-0500 Body height 185.[address] Solis Harrington Work Phone: [facility] 03-31-2023 15:15-0500 Body mass index (BMI) [Ratio] 29.1 kg/m2 Dr. Solis Harrington Work Phone: [facility] 03-31-2023 15:15-0500 Body weight 100.[address] Solis Harrington Work Phone: [facility] 03-31-2023 15:15-0500 Diastolic blood pressure 74 mm[Hg] Dr. Solis Harrington Work Phone: [facility] 03-31-2023 15:15-0500 Heart rate 75 /min Dr. Solis Harrington Work Phone: [facility] 03-31-2023 15:15-0500 Respiratory rate 18 /min Dr. Solis Harrington Work Phone: [facility] 03-31-2023 15:15-0500 SaO2% (BldA) [Mass fraction] 93 % Dr. Solis Harrington Work Phone: [facility] 03-31-2023 15:15-0500 Systolic blood pressure 130 mm[Hg] Dr. Solis Harrington Work Phone: [facility] 08-15-2022 15:23-0400 Body height 185.[address] Solis Harrington Work Phone: [facility] 08-15-2022 15:23-0400 Body mass index (BMI) [Ratio] 28.6 kg/m2 Dr. Solis Harrington Work Phone: [facility] 08-15-2022 15:23-0400 Body temperature 98.2 [degF] Dr. Solis Harrington Work Phone: [facility] 08-15-2022 15:23-0400 Body weight 98.[address] Solis Harrington Work Phone: [facility] 08-15-2022 15:23-0400 Diastolic blood pressure 78 mm[Hg] Dr. Solis Harrington Work Phone: [facility] 08-15-2022 15:23-0400 Heart rate 70 /min Dr. Solis Harrington Work Phone: [facility] 08-15-2022 15:23-0400 Respiratory rate 16 /min Dr. Solis Harrington Work Phone: [facility] 08-15-2022 15:23-0400 SaO2% (BldA) [Mass fraction] 98 % Dr. Solis Harrington Work Phone: [facility] 08-15-2022 15:23-0400 Systolic blood pressure 140 mm[Hg] Dr. Solis Harrington Work Phone: [facility] 02-07-2022 15:21-0500 Body height 185.[address] Solis Harrington Work Phone: [facility] Work Phone: 02-07-2022 15:21-0500 Body mass index (BMI) [Ratio] 29.9 kg/m2 Dr. Solis Harrington Work Phone: [facility] Work Phone: 02-07-2022 15:21-0500 Body temperature 94.9 [degF] Dr. Solis Harrington Work Phone: [facility] Work Phone: 02-07-2022 15:21-0500 Body weight 102.[address] Solis Harrington Work Phone: [facility] Work Phone: 02-07-2022 15:21-0500 Diastolic blood pressure 77 mm[Hg] Dr. Solis Harrington Work Phone: [facility] Work Phone: 02-07-2022 15:21-0500 Heart rate 80 /min Dr. Solis Harrington Work Phone: [facility] Work Phone: 02-07-2022 15:21-0500 Respiratory rate 18 /min Dr. Solis Harrington Work Phone: [facility] Work Phone: 02-07-2022 15:21-0500 SaO2% (BldA) [Mass fraction] 96 % Dr. Solis Harrington Work Phone: [facility] Work Phone: 02-07-2022 15:21-0500 Systolic blood pressure 149 mm[Hg] Dr. Solis Harrington Work Phone: [facility] Work Phone: 09-30-2021 15:55-0400 Body height 185.[address] Solis Harrington Work Phone: [facility] Work Phone: 09-30-2021 15:55-0400 Body mass index (BMI) [Ratio] 28.8 kg/m2 Dr. Solis Harrington Work Phone: [facility] Work Phone: 09-30-2021 15:55-0400 Body weight 98.[address] Solis Harrington Work Phone: [facility] Work Phone: 09-30-2021 15:55-0400 Diastolic blood pressure 75 mm[Hg] Dr. Solis Harrington Work Phone: [facility] Work Phone: 09-30-2021 15:55-0400 Heart rate 76 /min Dr. Solis Harrington Work Phone: [facility] Work Phone: 09-30-2021 15:55-0400 Respiratory rate 16 /min Dr. Solis Harrington Work Phone: [facility] Work Phone: 09-30-2021 15:55-0400 SaO2% (BldA) [Mass fraction] 97 % Dr. Solis Harrington Work Phone: [facility] Work Phone: 09-30-2021 15:55-0400 Systolic blood pressure 126 mm[Hg] Dr. Solis Harrington Work Phone: [facility] Work Phone: 11-10-2016 08:11-0400 BMI (Body Mass Index) 31 kg/m2 Sherif Gaitan NP [facility] Work Phone: 11-10-2016 08:11-0400 Body Temperature 97.9 [degF] Sherif Gaitan NP [facility] Work Phone: 11-10-2016 08:11-0400 BP Diastolic 81 mm[Hg] Sherif Gaitan NP [facility] Work Phone: 11-10-2016 08:11-0400 BP Systolic 158 mm[Hg] Sherif Gaitan NP [facility] Work Phone: 11-10-2016 08:11-0400 Height 182.88 cm Sherif Gaitan NP [facility] Work Phone: 11-10-2016 08:11-0400 Pulse (Heart Rate) 54 /min Sherif Gaitan TECHNICAL SALES SUPPORT MANAGER [facility] Work Phone: 11-10-2016 08:11-0400 Respiratory Rate 20 /min Sherif Gaitan NP [facility] Work Phone: 11-10-2016 08:11-0400 Weight 103.69 kg Sherif Gaitan NP [facility] Work Phone: 08-11-2016 15:08-0400 BP Diastolic 84 mm[Hg] Sherif Gaitan TECHNICAL SALES SUPPORT MANAGER [facility] Work Phone: 08-11-2016 15:08-0400 BP Systolic 136 mm[Hg] Sherif Gaitan TECHNICAL SALES SUPPORT MANAGER [facility] Work Phone: 05-11-2016 15:17-0500 Body Temperature 98.01 [degF] Sherif Gaitan TECHNICAL SALES SUPPORT MANAGER [facility] Work Phone: 05-11-2016 15:17-0500 Height 182.88 cm Sherif Gaitan NP [facility] Work Phone: 05-11-2016 15:17-0500 Weight 100.15 kg Sherif Gaitan TECHNICAL SALES SUPPORT MANAGER [facility] Work Phone: 03-22-2016 13:30-0500 BSA (Body Surface Area) 2.31 m2 Sherif Gaitan TECHNICAL SALES SUPPORT MANAGER [facility] Work Phone: Encounters Encounter Date Encounter Type Care Provider Facility Start: 10-18-2024 End: 10-18-[address] Lei Vasquez MD -[facility] Work Phone: Start: 10-18-2024 End: 10-18-[address] Solis Harrington DO Work Phone: -[facility] Start: 06-21-2024 End: 06-21-2024 Patient encounter procedure Patty Mcmahan TECHNICAL SALES SUPPORT MANAGER-C -[facility] Work Phone: Start: 06-21-2024 End: 06-21-2024 ambulatory Patty Mcmahan NP Facility:[facility] Start: 06-14-2024 End: 06-14-2024 ambulatory Patty Mcmahan NP Facility:[facility] Start: 04-05-2024 End: 04-05-2024 ambulatory Lei Vasquez Facility:[facility] Start: 01-12-2024 End: 01-12-2024 ambulatory Mat Nance Facility:[facility] Start: 12-22-2023 End: 12-22-2023 ambulatory CLAIR GERMAN MD Facility:[facility] Start: 12-22-2023 End: 12-22-2023 Patient encounter procedure CLAIR GERMAN MD [facility] Start: 04-13-2023 End: 04-13-[address] Solis Harrington Work Phone: [facility] Work Phone: Start: 04-13-2023 End: 04-13-[address] Solis Harrington Work Phone: [facility] Work Phone: Start: 03-31-2023 End: 03-31-[address] oSlis Harrington Work Phone: [facility] Work Phone: Start: 01-03-2023 End: 01-03-[address] Solis Harrington Work Phone: [facility], [place] Work Phone: Start: 11-24-2022 End: 11-24-[address] Solis Harrington Work Phone: [facility] Work Phone: Start: 11-24-2022 End: 11-24-[address] [facility] Start: 10-26-2022 End: 10-26-[address] Solis Harrington Work Phone: [facility] Work Phone: Start: 10-26-2022 End: 10-26-[address] Solis Harrington Work Phone: [facility] Work Phone: Start: 09-26-2022 End: 09-26-[address] [facility] Start: 08-15-2022 End: 08-15-[address] Solis Harrington Work Phone: [facility] Work Phone: Start: 08-12-2022 End: 08-12-[address] [facility] Start: 02-16-2022 End: 02-16-[address] Solis Harrington Work Phone: [facility] Work Phone: Start: 02-16-2022 End: 02-16-[address] [facility] Har[facility] [place] Start: 02-07-2022 End: 02-07-[address] Solis Harrington Work Phone: [facility] Start: 12-02-2021 Non-patient / Non-visit Dr. Solis Harrington Work Phone: [facility] Start: 12-02-2021 End: 12-02-[address] Solis Harrington Work Phone: [facility] Work Phone: Start: 12-02-2021 End: 12-02-[address] Solis Harrington Work Phone: [facility]-Cardiovascular Services Start: 11-30-2021 End: 11-30-[address] Solis Harrington Work Phone: [facility] Work Phone: Start: 11-30-2021 End: 11-30-[address] Solis Harrington Work Phone: [facility] Start: 11-25-2021 End: 11-25-[address] Solis Harrington Work Phone: [facility] Work Phone: Start: 11-25-2021 End: 11-25-[address] Solis Harrington Work Phone: [facility]-Pulmonary Services/Neurology Start: 11-25-2021 Non-patient / Non-visit Dr. Solis Harrington Work Phone: [facility] Start: 09-30-2021 End: 09-30-[address] Solis Harrington Work Phone: [facility] Procedures Date Procedure Procedure Detail Performing Clinician Start: 01-03-2023 Plain chest X-ray Dr. Solis Harrington Work Phone: Start: 10-26-2022 X-ray of lumbar spine, two or three views Dr. Solis Harrington Work Phone: Start: 12-02-2021 Radionuclide imaging of perfusion of myocardium under exercise stress Dr. Solis Harrington Work Phone: Start: 08-11-2016 End: 11-12-2016 *CMP Complete Metabolic Panel Sherif li NP Work Phone: Start: 08-11-2016 End: 11-12-2016 Hemoglobin A1c/Hemoglobin.total in Blood Sherif Gaitan TECHNICAL SALES SUPPORT MANAGER Work Phone: Start: 05-11-2016 End: 06-18-2016 *CMP Complete Metabolic Panel Sherif li TECHNICAL SALES SUPPORT MANAGER Work Phone: Start: 05-11-2016 End: 06-18-2016 *Microalbumin, Creatine Ratio, rand urine Sherif Gaitan TECHNICAL SALES SUPPORT MANAGER Work Phone: Start: 05-11-2016 End: 06-18-2016 Hemoglobin A1c/Hemoglobin.total in Blood Sherif Gaitan TECHNICAL SALES SUPPORT MANAGER Work Phone: Start: 05-11-2016 End: 06-18-2016 Lipid 1996 panel - Serum or Plasma Moise Gaitan TECHNICAL SALES SUPPORT MANAGER Work Phone: Start: 03-22-2016 End: 03-22-2016 [employer] WORKER Dana Miguel PA-C Work Phone: Start: 03-22-2016 End: 03-22-2016 Follow Up Appt 6 months Dana Miguel PA-C Work Phone: Start: 09-15-2015 End: 03-22-2016 Follow Up Appt 6 months Genesis Mast Start: 09-15-2015 End: 03-22-2016 MMM Clyde Smith MD Start: 09-08-2015 End: 09-14-2015 *Hepatic Function Panel Genesis Mast Start: 09-08-2015 End: 09-14-2015 Lipid 1996 panel - Serum or Plasma Clyde Smith MD Start: 03-10-2015 End: 03-22-2016 *BMP Dana Miguel PA-C Work Phone: Start: 03-10-2015 End: 03-22-2016 Arterial exam Dana Miguel PA-C Work Phone: Start: 03-10-2015 End: 03-10-2015 [employer] WORKER Dana Miguel PA-C Work Phone: Start: 03-10-2015 End: 03-10-2015 Follow Up Appt 6 months Dana Miguel PA-C Work Phone: Start: 03-10-2015 End: 03-23-2015 [facility] Work Phone: Start: 10-14-2014 End: 03-10-2015 *Hepatic Function Panel Genesis Mast Start: 10-14-2014 End: 03-10-2015 Lipid 1996 panel - Serum or Plasma Clyde Smith MD Start: 09-02-2014 End: 09-02-2014 Follow Up Appt 6 months Genesis Mast Start: 09-02-2014 End: 09-02-2014 MMM Clyde Smith MD Start: 09-02-2014 End: 09-03-2014 Pedal pulse taking Clyde Smith MD Start: 07-03-2014 End: 09-01-2014 *Hepatic Function Panel Dana Miguel PA-C Work Phone: Start: 07-03-2014 End: 09-01-2014 Lipid 1996 panel - Serum or Plasma Carly Miguel PA-C Work Phone: Start: 03-13-2014 End: 02-25-2015 CHANTELLE Miguel PA-C Work Phone: Start: 03-13-2014 End: 02-25-2015 Follow Up Appt 6 months Dana Miguel PA-C Work Phone: Start: 02-03-2014 End: 02-14-2014 *Hepatic Function Panel Genesis Mast Start: 02-03-2014 End: 02-14-2014 Lipid 1996 panel - Serum or Plasma Clyde Smith MD Start: 08-13-2013 End: 09-02-2013 *Hepatic Function Panel Genesis Mast Start: 08-13-2013 End: 08-13-2013 Follow Up Appt 6 months Genesis Mast Start: 08-13-2013 End: 09-02-2013 Lipid 1996 panel - Serum or Plasma Clyde Smith MD Start: 08-13-2013 End: 08-13-2013 TIN Smith MD Start: 01-08-2013 End: 01-08-2013 [employer] WORKER Dana Miguel PA-C Work Phone: Start: 01-08-2013 End: 01-08-2013 Ecg routine ecg w/least 12 lds w/i&r Dana Miguel PA-C Work Phone: Start: 01-08-2013 End: 01-08-2013 Follow Up Appt 6 months Dana Miguel PA-C Work Phone: Start: 07-05-2012 End: 07-05-2012 Follow Up Appt 6 months Genesis Mast Start: 07-05-2012 End: 01-08-2013 Lipid 1996 panel - Serum or Plasma Clyde Smith MD Start: 07-05-2012 End: 07-05-2012 MMGenesis Smith MD Start: 07-04-2011 End: 07-04-2011 Follow Up Appt 1 year Urban Jesus MD Start: 06-23-2003 History of placement of stent for coronary artery disease History of coronary artery stent placement Dr. Solis Harrington Work Phone: Comment on above: PCI-Stent LCx extending into OM1 w/ 3.5 x 18 mm Vision Long Stent 06/23/2003 Anal fissure (disorder) ELZA GERMAN MD Esophagogastroduoden oscopy gastric outlet reduction CLAIR GERMAN MD Exploratory laparotomy EDUARDA GERMAN MD Ophthalmic examinati on and evaluation CLAIR GERMAN MD Comment on above: Diabetic- Dr. Garces Plan of Treatment Date Care Activity Detail Author Start: 10-06-2017 End: 10-06-2017 Appointment Appointment [facility] Work Phone: Start: 11-22-2016 End: 11-22-2016 *Hepatic Function Panel *Hepatic Function Panel [facility] Work Phone: Start: 11-22-2016 End: 11-22-2016 Lipid panel [AGGREGATE] *Lipid Profile [facility] Work Phone: Start: 10-06-2016 End: 10-06-2016 Follow Up Appt 1 year Follow Up Appt 1 year [facility] Work Phone: Start: 10-06-2016 End: 10-06-2016 MMM MMM [facility] Work Phone: Start: 09-13-2016 End: 09-16-2015 *Hepatic Function Panel *Hepatic Function Panel [facility] Work Phone: Start: 09-13-2016 End: 09-16-2015 Lipid panel [AGGREGATE] *Lipid Profile CC PCP [facility] Work Phone: Start: 08-11-2016 End: 11-12-2016 *CMP Complete Metabolic Panel *CMP Complete Metabolic Panel [facility] Work Phone: Start: 08-11-2016 End: 11-12-2016 Hemoglobin A1c/Hemoglobin.total mass fraction (Bld) *HgA1C [facility] Work Phone: Start: 05-11-2016 End: 06-18-2016 *CMP Complete Metabolic Panel *CMP Complete Metabolic Panel [facility] Work Phone: Start: 05-11-2016 End: 06-18-2016 *Microalbumin, Creatine Ratio, rand urine *Microalbumin, Creatine Ratio, rand urine [facility] Work Phone: Start: 05-11-2016 End: 06-18-2016 Hemoglobin A1c/Hemoglobin.total mass fraction (Bld) *HgA1C [facility] Work Phone: Start: 05-11-2016 End: 06-18-2016 Lipid panel [AGGREGATE] *Lipid Profile [facility] Work Phone: Start: 03-22-2016 End: 03-22-2016 [employer] L[employer] UP WORKER [employer] UP WORKER [facility] Work Phone: Start: 03-22-2016 End: 03-22-2016 Follow Up Appt 6 months Follow Up Appt 6 months [facility] Work Phone: Start: 09-15-2015 End: 03-22-2016 Follow Up Appt 6 months Follow Up Appt 6 months [facility] Work Phone: Start: 09-15-2015 End: 03-22-2016 MMM MMM [facility] Work Phone: Start: 09-08-2015 End: 09-14-2015 *Hepatic Function Panel *Hepatic Function Panel [facility] Work Phone: Start: 09-08-2015 End: 09-14-2015 Lipid panel [AGGREGATE] *Lipid Profile CC PCP [facility] Work Phone: Start: 03-10-2015 End: 03-22-2016 *BMP *BMP [facility] Work Phone: Start: 03-10-2015 End: 03-10-2015 Arterial exam Arterial exam [facility] Work Phone: Start: 03-10-2015 End: 03-10-2015 [employer] L[employer] UP WORKER [employer] WORKER [facility] Work Phone: Start: 03-10-2015 End: 03-10-2015 Follow Up Appt 6 months Follow Up Appt 6 months [facility] Work Phone: Start: 03-10-2015 End: 03-10-2015 Nuclear stress test -[facility] Nuclear stress test -[facility] Work Phone: Start: 10-14-2014 End: 03-10-2015 *Hepatic Function Panel *Hepatic Function Panel [facility] Work Phone: Start: 10-14-2014 End: 03-10-2015 Lipid panel [AGGREGATE] *Lipid Profile CC PCP [facility] Work Phone: Start: 09-02-2014 End: 09-02-2014 Follow Up Appt 6 months Follow Up Appt 6 months [facility] Work Phone: Start: 09-02-2014 End: 09-02-2014 MMM MMM [facility] Work Phone: Start: 07-03-2014 End: 09-01-2014 *Hepatic Function Panel *Hepatic Function Panel [facility] Work Phone: Start: 07-03-2014 End: 09-01-2014 Lipid panel [AGGREGATE] *Lipid Profile CC PCP [facility] Work Phone: Start: 03-13-2014 End: 02-25-2015 F[employer]REGL[employer] L[employer] UP WORKER F[employer] L[employer] UP WORKER [facility] Work Phone: Start: 03-13-2014 End: 02-25-2015 Follow Up Appt 6 months Follow Up Appt 6 months [facility] Work Phone: Start: 02-03-2014 End: 02-14-2014 *Hepatic Function Panel *Hepatic Function Panel [facility] Work Phone: Start: 02-03-2014 End: 02-14-2014 Lipid panel [AGGREGATE] *Lipid Profile CC PCP [facility] Work Phone: Start: 08-13-2013 End: 09-02-2013 *Hepatic Function Panel *Hepatic Function Panel [facility] Work Phone: Start: 08-13-2013 End: 08-13-2013 Follow Up Appt 6 months Follow Up Appt 6 months [facility] Work Phone: Start: 08-13-2013 End: 09-02-2013 Lipid panel [AGGREGATE] *Lipid Profile CC PCP [facility] Work Phone: Start: 08-13-2013 End: 08-13-2013 MMM MMM [facility] Work Phone: Start: 01-08-2013 End: 01-08-2013 F[employer]RE[employer] LAY UP WORKER [employer] L[employer] UP WORKER [facility] Work Phone: Start: 01-08-2013 End: 01-08-2013 Ecg routine ecg w/least 12 lds w/i&r EKG (In office) [facility] Work Phone: Start: 01-08-2013 End: 01-08-2013 Follow Up Appt 6 months Follow Up Appt 6 months [facility] Work Phone: Start: 07-05-2012 End: 07-05-2012 Follow Up Appt 6 months Follow Up Appt 6 months [facility] Work Phone: Start: 07-05-2012 End: 01-08-2013 Lipid panel [AGGREGATE] *Lipid Profile [facility] Work Phone: Start: 07-05-2012 End: 07-05-2012 MMM MMM [facility] Work Phone: Start: 07-04-2011 End: 07-04-2011 Follow Up Appt 1 year Follow Up Appt 1 year [facility] Work Phone: Lipid 1996 panel - Serum or Plasma [facility] Patient Education [facility] Work Phone: Radionuclide imaging of perfusion of myocardium under exercise stress [facility] Work Phone: [facility] Payers Date Payer Category Payer Self-pay [id number] 2023 Unknown [id number] 1960 Unknown [id number] [id number] Unknown [id number] Unknown [id number] [id number] Unknown [id number] [id number] [id number] Unknown [id number] [id number] [id number] Unknown [id number] [id number] [id number] Social History Date Type Detail Facility Start: 09-30-2021 End: 03-31-2023 Tobacco smoking status WAIS Unknown if ever smoked [facility] Start: 1960 Sex Assigned At Male [facility] Start: 11-07-2018 End: 05-02-2023 Tobacco smoking status Ex-smoker (finding) [facility] Clinical Note 12-22-2023 Note Date & Type Note Facility 12-22-2023 Note ORIGINAL EXAMINATION: MRI OF THE BRAIN WITHOUT AND WITH CONTRAST 12/22/2023 3:17 pm TECHNIQUE: Multiplanar multisequence MRI of the head/brain was performed without and with the administration of intravenous contrast. COMPARISON: None. HISTORY: ORDERING SYSTEM PROVIDED HISTORY: Reason for Exam: HEADACHE R51.9 FINDINGS: INTRACRANIAL STRUCTURES/VENTRICLES: There is no acute infarct. No mass effect or midline shift. No evidence of an acute intracranial hemorrhage. The ventricles and sulci are normal in size and configuration. The sellar/suprasellar regions appear unremarkable. The normal signal voids within the major intracranial vessels appear maintained. No abnormal focus of enhancement is seen within the brain. There are a few small foci within the subcortical white matter that demonstrate T2 FLAIR hyperintensity. This is nonspecific but likely sequela of mild microvascular ischemic disease. ORBITS: The visualized portion of the orbits demonstrate no acute abnormality. SINUSES: Small amount of fluid and mucosal thickening in the left maxillary sinus. The other visualized paranasal sinuses and mastoid air cells demonstrate no acute abnormality. BONES/SOFT TISSUES: The bone marrow signal intensity appears normal. The soft tissues demonstrate no acute abnormality. IMPRESSION: No acute intracranial abnormality. I have personally reviewed the images of this examination and agree with the resident's findings and interpretation. Interpreted by: Jan Villalta MD Preliminary Report By: Justice Lamonte Electronically signed By Jan Villalta MD Dictated Date: 12/22/2023 3:21:33 PM Prelim Date: 12/22/2023 3:31:43 PM Sign Date: 12/22/2023 3:31:43 PM Ordering Provider: [facility] Progress note 10-14-2020 Note Date & Type Note Facility 10-14-2020 Note HNO ID: [id number] Author: Karson Bass, PhD Service: ? Author Type: Psychologist Type: Progress Notes Filed: 10/14/2020 12:59 PM Note Text: [facility] Progress Note Caroline Beckett 10/14/2020 [id number] Provider: Karson Bass, PhD CPT Code: 57786 Psychiatric diagnostic evaluation Time: Approximately 50 minutes was spent in therapy. Parties Present: Patient Patient Presentation/Concerns: INITIAL VISIT Pt born in [place] middle of 6 sibs... grew up w mom... father was a drunk and Aunt... didnt know he was dad until 14yo ETOH and Drugs and 3mo at most holding a job ... SOBER since 1988 40 yrs and worked at [employer] 37 years 1 child together and she has 3 neuropathy and takes 1/2 Tramadol in evenings Pt put on probation for speaking up to boss and a back stabbing coworker... first write up in all these years PLAN: worked w [employer] technique about when and how to respond when something actually is ethical or safety issue MEMORY: pt presents w concerns he doesnt remember short term things as well as in past he doesnt report it affecting any important part of relationship or work and brief test was no problem PLAN: keep an eye on it and discussed how memory can change agent time and that we tend to remember things important discussed mnemonics, calendaring, and notes Just completed a [employer] contract that is good re money and benefits Mental Status: Mood: variable Affect: mood-congruent Thoughts/Associations:goal directed Suicidal/Homicidal Ideation: None expressed or evidenced Other Observations: None Therapy Focus Self-care, Stress management, Mood/affect regulation, Self-esteem and Coping with chronic illness MEDICATIONS: Per medical record: Current Outpatient Medications Medication Sig - metFORMIN (GLUCOPHAGE) 500 mg tablet Take 2 tablets by mouth twice daily. - insulin glargine (LANTUS) 100 unit/mL injection Inject 15 Units subcutaneously daily at bedtime. - Insulin Syringe-Needle U-100 (BD INSULIN SYRINGE ULTRAFINE) 0.3 mL 31 x 5/16 syrg use with insulin injection once daily - ACETAMINOPHEN (TYLENOL ARTHRITIS ORAL) Take by mouth. - ramipril 5 mg capsule Take 10 mg by mouth once daily. - lansoprazole (PREVACID) 30 mg capsule Take 1 capsule by mouth once daily. - sertraline (ZOLOFT) 50 mg ORAL tablet Take one(1) tablet daily. No current facility-administered medications for this visit. Psychiatric Medication Issues: see med record DIAGNOSIS: Strat[place] I: Adjustment Disorder (work situation, concerns about memory) r/o short term memory issue Drug and ETOH history .. sober for many years Strat[place] II: deferred Stratford III: see med record Strat[place] IV: work conflict, memory concern Stratford V: 48-52 Treatment Modality/Interventions: Cognitive Behavioral Reassurance/Supportive Insight oriented Problem solving Processing of emotions Communication skills training Psychoeducation TREATMENT ASSESSMENT/PROGRESS: . Progressing satisfactorily. TREATMENT PLAN/GOALS: Continue in therapy focusing on self-care, interpersonal relationships, improving communication, affect management, self-esteem and neuropathy . Next appointment: as scheduled Karson Bass, PhD [facility] Evaluation note 06-23-2003 Note Date & Type Note Facility 06-23-2003 Evaluation note Diagnosis Onset Date Essential (primary) hypertension chronic Hyperlipidemia chronic History of coronary artery stent placement June 23, 2003 [facility] Work Phone: Evaluation + Plan note Note Date & Type Note Facility Evaluation + Plan note No data available for this section [facility] Evaluation note Note Date & Type Note Facility Evaluation note Diagnosis Onset Date Essential (primary) hypertension chronic Hyperlipidemia chronic Overweight (BMI 25.0-29.9) c hronic Type 2 diabetes mellitus [facility] Work Phone: Evaluation note Note Date & Type Note Facility Evaluation note Diagnosis Onset Date Atherosclerosis of coronary artery of [place]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 Essential (primary) hypertension chronic Hyperlipidemia chronic Overweight (BMI 25.0-29.9) c hronic Type 2 diabetes mellitus [facility] Work Phone: Evaluation note Note Date & Type Note Facility Evaluation note No assessment information availa calin [facility] Work Phone: Hospital Discharge instructions Note Date & Type Note Facility Hospital Discharge instructions No data available for this section [facility] Progress note Note Date & Type Note Facility Progress note No data available for this section [facility] Reason for referral (narrative) Note Date & Type Note Facility Reason for referral (narrative) No reason for referral information available [facility] Work Phone: Summary Purpose Family History No Family History Records Found Relationship Condition Age at Onset Recorded Date/T joan mother Cardiac disease Unknown Coronary artery disease Unknown Hypertension Unknown Hyperlipidemia Unknown Atrial fibrillation Unknown Diabetes mellitus Unknown Malignant neoplasm Unknown father Anoxia of brain Unknown Advance Directives No Advanced Directives Records Found Advance Directive Response Recorded Date/ Time Living Will No August 11, 2016 9 :28am Power of Implementation Specialist Payroll No August 11, 2016 9:28am Advance Directive Response Recorded Date/ Time Living Will No August 11, 2016 8 :28am Power of Implementation Specialist Payroll No August 11, 2016 8:28am Chief Complaint and Reason for Visit Chief Complaint 1 Y FU E ORDER Reason for Visit Essential (primary) hypertension Hyperlipidemia History of coronary artery stent placement Chief Complaint 1 Y FU E ORDER PREPROCEDURAL CARDIOVASCULAR Reason for Visit Essential (primary) hypertension Hyperlipidemia History of coronary artery stent placement Chief Complaint 1 Y FU E ORDER PREPROCEDURAL CARDIOVASCULAR CAD Coronary artery disease Reason for Visit Essential (primary) hypertension Hyperlipidemia History of coronary artery stent placement Chief Complaint PREPROCEDURAL CARDIO VASCULAR PREPROCEDURAL CARDIOVASCULAR CAD Coronary artery disease FU EORDER Reason for Visit Essential (primary) hypertension Hyperlipidemia Overweight (BMI 25.0-29.9) Type 2 diabetes mellitus Chief Complaint INT LABS 6 M FU Reason for Visit Atherosclerosis of c oronary artery of [place] heart without angina pectoris Essential (primary) hypertension Hyperlipidemia Overweight (BMI 25.0-29.9) Type 2 diabetes mellitus Chief Complaint CXR 18 M FU Reason for Visit Essential (primary) hypertension Hyperlipidemia History of coronary artery stent placement Chief Complaint Admit Date E ORDERS June 21, 2024 9:2 7am 6 M FU October 18, 2024 9: 25am Additional Source Comments (unrecognized sect ion and content) No Status Records FoundNo Status Records FoundNo Status Records Found INFORMATION SOURCE (unrecogn ized section and content) DATE CREATED AUTHOR 04/09/2021 [facility] DATE CREATED AUTHOR AUTHOR'S ORGANIZ ATION 12/25/2023 [facility] DATE CREATED AUTHOR AUTHOR'S ORGANIZ ATION 10/19/2024 [facility] Goals (unrecognized section and content) Goals may be documented in a n alternate sectionGoals may be documented in an alternate sectionGoals may be documented in an alternate sectionGoals may be documented in an alternate sectionGoals may be documented in an alternate sectionGoals may be documented in an alternate sectionGoals may be documented in an alternate sectionGoals may be documented in an alternate section No data available for this sectionGoals may be documented in an alternate section Care Teams (unrecognized sec tion and content) Team Status: Active Member Role Status Dates Dr. Solis Harrington DO Family Provider Active Dr. Solis Harrington DO Primary Care Provider Active Team Status: Inactive Member Role Status Dates Dr. Solis Harrington DO Primary Care Provider, Referrin g Provider Active Dr. Lei Vasquez MD Attending Provider Active Team Status: Inactive Member Role Status Dates Dr. Solis Harrington DO Primary Care Provider Active Dr. Lei Vasquez MD Attending Provider, Referring Provi yudy Active Team Status: Inactive Member Role Status Dates Dr. Solis Harrington DO Primary Care Provider Active Dr. Amaury Casiano MD Attending Provider, Referr ing Provider Active Team Status: Inactive Member Role Status Dates Dr. Solis Harrington DO Primary Care Provider Active Dr. Kar Ulloa MD Attending Provider, Referring Pr ovider Active Team Status: Inactive Member Role Status Dates Dr. Solis Harrington DO Primary Care Provider Active Dr. Mat Nance MD Attending Provider, Referring Pro vider Active Team Status: Inactive Member Role Status Dates Dr. Solis Harrington DO Primary Care Provider, Referrin g Provider Active Patty Mcmahan TECHNICAL SALES SUPPORT MANAGER, TECHNICAL SALES SUPPORT MANAGER-C Attending Provider Active Team Status: Active Member Role/Relationship Status Dates Dr. Solis Harrington DO Primary Care Provider Active Team Status: Inactive Member Role/Relationship Status Dates Dr. Solis Harrington DO Primary Care Provider Active Start: June 21, 2024 End: June 21, 2024 Patty Mcmahan TECHNICAL SALES SUPPORT MANAGER, TECHNICAL SALES SUPPORT MANAGER-C Attending Provider Active Start: June 21, 2024 End: June 21, 2024 Patty Mcmahan NP, TECHNICAL SALES SUPPORT MANAGER-C Referring Provider Active Start: June 21, 2024 End: June 21, 2024 Team Status: Inactive Member Role/Relationship Status Dates Dr. Solis Harrington DO Primary Care Provider Active Start: October 18, 2024 End: October 18, 2024 Dr. Solis Harrington DO Referring Provider Active Start: October 18, 2024 End: October 18, 2024 Dr. Lei Vasquez MD Attending Provider Active Sta rt: October 18, 2024 End: October 18, 2024 FOR RECORDS PERTAINING TO PATIENTS WHO ARE OR HAVE BEEN ENROLLED IN A CHEMICAL DEPENDENCY/SUBSTANCEABUSE PROGRAM, SOME INFORMATION MAY BE OMITTED. This clinical summary was aggregated from multiple sources. Caution should be exercised in using it in the provision of clinical care. This summary normalizes information from multiple sources, and as a consequence, information in this document may materially change the coding, format and clinical context of patient data. In addition, data may be omitted in some cases. CLINICAL DECISIONS SHOULD BE BASED ON THE PRIMARY CLINICAL RECORDS. [employer] [facility]. provides no warranty or guarantee of the accuracy or completeness of information in this document.
[2025-01-10 10:15] LABS: Hematocrit 38.2 % (40-54); Hemoglobin 13.1 g/dL (13.0-16.5); Immature Granulocytes Count 0.010 X10^3/uL (0.0-0.0); Mean Corp Hgb Conc 34.3 g/dL (32-36); Mean Corpuscular Volume 91.6 fL (80-94); Mean Platelet Vol. 9.7 fl (6.2-12.0); NRBC Flagged by Analyzer 0 % (0-5); Platelet Count 165 K/mm3 (150-450); RBC Distribution Width CV 12.9 % (11.6-14.6); RBC Distribution Width SD 42.7 fl (35.1-43.9); Red Blood Count 4.17 M/mm3 (4.6-6.2); White Blood Count 3.6 K/mm3 (4.4-11.0)
[2025-01-10 10:37] LABS: AST(SGOT) 17 U/L (<=37); Alanine Aminotransfer ALT/SGPT 12 U/L (<=46)
[2025-01-14 11:09] LABS: HCV Quant. RNA PCR HCV Not Detected IU/mL (.)
== END | disposition home or self-care (01) ==
LOC: MTLAB 08:28
PROVIDERS: PCP Family Medicine; Referring Provider Dermatology; Visit Provider Dermatology
DX: Z79.899 Other long term (current) drug therapy (principal)
CPT/HCPCS: 36415; 71046; 84450; 84460; 85025; 86480; 87522

== ENCOUNTER → 2025-02-08 | Outpatient (CLI) | payer OTHER, SELFPAY ==
--- OUTSIDE RECORDS SUMMARY | 2025-02-08 11:46 | XMS RPT_ITS | CCD ---
Author Organization [facility] Care Team Providers Care Finisher [employer] Name Role Phone Sherif Gaitan NP Unavailable Dr. Solis Harrington Primary Care Provider [phone] Dr. Solis Harrington Referring Provider [phone] Dr. Clyde Smith Attending Provider [phone] Clyde Smith Other Provider MD Clyde Smith Referring Provider Unavailable Dr. Solis Harrington Primary Care Provider [phone] Dr. Erick Landaverde Attending Provider Erika ORTEGA PA-C Ray Referring Provider [phone] Clyde Smith Attending Provider [phone] Clyde Smith Other Provider MD Clyde Smith Referring Provider Unavailable Dr. Solis Harrington Referring Provider [phone] Lei Vasquez Attending Provider [phone] Dr. Solis Harrington Primary Care Provider [phone] Dr. Solis Harrington Referring Provider [phone] Lei aVsquez Attending Provider [phone] Dr. Solis Harrington Primary Care Provider [phone] Dr. Solis Harrington Referring Provider [phone] GILMA Mcmahan NP Attending Provider SHERIF CROOK Primary Care Physician CLAIR GERMAN MD Attending Unavailable SHERIF CROOK Primary Care Unavail able Dr. Solis Harrington DO Primary Care Provider Patty Marie Attending Provider Patty Marie Referring Provider Dr. Solis Harrington DO Referring Provider Dr. Lei Vasquez MD Attending Provider Patty Mcmahan Attending Unavailable Solis Harrington Primary Care Unavailable Solis Harrington Referring Unavailable Patty Mcmahan Attending Unavailable Patty Mcmahan Referring Unavailable Solis Harrington Primary Care Unavailable Solis Harrington Primary Care Unavailable Mat Nance Attending Unavailable Mat Nance Referring Unavailable Lei Vasquez Attending Unavailable Solis Harrington Primary Care Unavailable Solis Harrington Referring Unavailable Lei Vasquez Attending Unavailable Solis Harrington Primary Care Unavailable Solis Harrington Referring Unavailable Allergies Allergy Classification Reported Allergen(s) Allergy Type Date of Onset Reaction(s) Facility (1 source) Adrenergic Beta-Antagonists drug allergy 07-06-19 13 [facility] Work Phone: (12 sources) aspirin; Translations: [aspirin] Drug Allergy 10-01-19 22 hives, Rash [facility] Work Phone: (1 source) colestipol Drug Allergy 10-30-19 11 Skin rash [facility] Work Phone: (1 source) ezetimibe Drug Allergy 10-30-19 11 Skin rash [facility] Work Phone: (1 source) ezetimibe / simvastatin Drug Allergy 10-30-19 11 Myalgias [facility] Work Phone: (1 source) gabapentin Drug Allergy 05-12-19 17 [facility] Work Phone: (11 sources) hydroCHLOROthiaz madeleine; Translations: [hydrochlorothia zide] Drug Allergy 10-07-19 17 leg cramps, Unknown [facility] Work Phone: (11 sources) ibuprofen; Translations: [ibuprofen] Drug Allergy 10-30-19 11 Rash [facility] Work Phone: (1 source) niacin Drug Allergy 10-30-19 11 Skin rash [facility] Work Phone: (1 source) rosuvastatin Drug Allergy 10-30-19 11 Myalgias [facility] Work Phone: (9 sources) Colestipol Drug Allergy 10-01-[address] [facility] (9 sources) ezetimibe Drug Allergy 10-01-[address] [facility] (10 sources) gabapentin; Translations: [gabapentin] Drug Allergy 10-01-[address] [facility] (9 sources) Niacin Drug Allergy 10-01-[address] [facility] (9 sources) rosuvastatin Drug Allergy 10-01-[address] [facility] (9 sources) Simvastatin Drug Allergy 10-01-[address] [facility] (10 sources) Beta-Blockers (Beta-Adrenergic Bloc; Translations: [Beta-Blockers (Beta-Adrenergic Bloc] Propensity to adverse reactions 10-01-[address] [facility] Comment on above: ANXIOUS/ ANGRY (1 source) Doxycycline; Translations: [doxycycline] Drug Allergy [facility] (1 source) HMG-CoA reductase inhibitor; Translations: [statins] Drug allergy too much pain [facility] (1 source) Naproxen; Translations: [naproxen] Drug Allergy Rash [facility] (1 source) Colestipol Drug Allergy 10-19-[address] [facility] Repository (1 source) ezetimibe Drug Allergy 10-19-[address] [facility] (1 source) gabapentin Drug Allergy 10-19-[address] [facility] (1 source) Niacin Drug Allergy 10-19-[address] [facility] (1 source) rosuvastatin Drug Allergy 10-19-[address] [facility] (1 source) Simvastatin Drug Allergy 10-19-[address] [facility] Medications Current Medications Medication Drug Class(es) [...] Discontinued 1.5 mg SC EVERY WEEK 2 6 August 17, 2021 9:02am February 07, 2022 [...] TABS One tablet by mouth daily HYDROCHLOROTHIAZIDE [id number] Clyde Smith MD Start: 03-10-2015 End: 03-17-2015 take 1 tablet by mouth once daily HYDROCHLOROTHIAZIDE 12.5 MG TABS One tablet by mouth daily HYDROCHLOROTHIAZIDE [id number] Dana Miguel PA-C hydroxychloroquine sulfate 200 mg oral tablet (12 sources) Antirheumatic Agent Start: 01-17-2020 take 1 tablet by mouth once daily Hydroxychloroquine (Plaquenil) 200 mg tablet Active 200 mg PO DAILY 1 April 27, 2020 1:00am Start: 03-13-2014 End: 03-10-2015 take 1 tablet by mouth once daily HYDROXYCHLOROQUINE SULFATE 200 MG TABS One tablet by mouth daily HYDROXYCHLOROQUINE SULFATE [id number] Dana Miguel PA-C metFORMIN hydrochloride 1000 mg oral tablet [...] tablets PO in the evening, METFORMIN HCL [id number] Sherif Gaitan NP Start: 10-29-2010 End: 03-31-2023 [...] CAPS One tablet by mouth daily RAMIPRIL [id number] Clyde Smith MD Start: 10-29-2010 take 1 tablet by fausto once daily ALTACE 2.5 MG CAPS One tablet by mouth daily RAMIPRIL [id number] Soledad Hickey sertraline 50 mg oral tablet [...] one half tab as needed. TRAMADOL HCL [id number] Sherif Gaitan HYDROSTATIC TUBING TESTER 1 ml ustekinumab 90 mg/ml prefilled syringe [...] sq every 3 months for psoriasis USTEKINUMAB [id number] Clyde Smith MD Start: 09-15-2015 take 1 tablet by mouth once [place] ter[place] STELARA 45 MG/0.5ML SOSY One tablet by mouth daily USTEKINUMAB [id number] Clyde Smith MD Completed/Discontinued Medications Medication Drug Class(es) Dates Sig (Normalized) Sig (Original) amoxicillin 500 mg oral tablet (1 source) Penicillin-class Antibacterial Start: 10-29-2010 take 4 tablets by mouth every hour AMOXICILLIN 500 MG TABS 4 tablets by mouth 1 hr prior to procedure AMOXICILLIN [id number] Soledad Hickey aspirin 81 mg oral tablet (2 sources) Nonsteroidal Anti-inflammatory Drug Start: 10-29-2010 End: 01-24-2011 take 1 tablet by mouth once daily ASPIRIN 81 MG TABS One tablet by mouth daily ASPIRIN 15124661586 Patric Colon MD bempedoic acid 180 mg [...] One tablet by mouth daily CINNAMON CAPS [id number] Clyde Smith MD Start: 09-02-2014 take 1 tablet by fausto th once daily CINNAMON CAPS One tablet by mouth daily CINNAMON CAPS [id number] Clyde Smith MD clobetasol propionate 0.5 mg/ml topical cream (2 sources) Corticosteroid Start: 07-05-2012 End: 03-22-2016 CLOBETASOL PROPIONATE 0.05 % CREA Apply topically as directed CLOBETASOL PROPIONATE [id number] Clyde Smith MD desmopressin acetate 0.1 mg [...] % CREA apply topically as directed DESOXIMETASONE [id number] [facility] DULoxetine 30 mg delayed release oral capsule [...] Discontinued 25 mg PO EVERY MORNING 30 3 April 05, 2024 1:00am June 14, 2024 8:32am esomeprazole 40 mg delayed release oral capsule (2 sources) Proton Pump Inhibitor Start: 10-29-2010 End: 01-24-2011 take 1 tablet by mouth once daily NEXIUM 40 MG CPDR One tablet by mouth daily ESOMEPRAZOLE MAGNESIUM 03097028250 Soledad Hickey 1 ml evolocumab 140 mg/ml auto-injector (9 sources) PCSK9 Inhibitor Start: 09-21-2020 End: 09-30-2021 Evolocumab (Repatha Sureclick) 140 mg/mL pen injector Discontinued 140 mg SC every 2 weeks 2 September 21, 2020 12:00am September 30, 2021 4:03pm Flash Glucose Scanning [place] (Freestyle Lorne 14 Day [place]) misc (18 sources) Start: 04-05-2018 End: 08-23-2019 Flash Glucose Scanning [place] (Freestyle [place]orne 14 Day [place]) misc Discontinued 0 .ROUTE .MEDSUPPLY 1 0 April 05, 2018 2:44pm August 23, 2019 9:17am Type 2 diabetes mellitus without complications e11.9 use to moniter BG via sensor on back of arm Start: 04-05-2018 End: 08-23-2019 Flash Glucose Scanning [place] (Freestyle [place]orne 14 Day [place]) misc Discontinued 0 .ROUTE .MEDSUPPLY 1 April 05, 2018 1:44pm August 23, 2019 8:17am use to moniter BG via sensor on back of arm Start: 04-05-2018 End: 08-23-2019 Flash Glucose Scanning [place] (Freestyle [place]orne 14 Day [place]) misc Discontinued 0 .ROUTE .MEDSUPPLY 1 April 05, 2018 2:44pm August 23, 2019 9:17am use to moniter BG via sensor on back of arm Start: 04-05-2018 End: 04-05-2018 Flash Glucose Scanning [place] (Freestyle [place]orne 14 Day [place]) misc Discontinued 0 .ROUTE .MEDSUPPLY 1 0 April 05, 2018 1:00am April 05, 2018 2:44pm Type 2 diabetes mellitus without complications e11.9 use to moniter BG via sensor on back of arm Start: 04-05-2018 End: 04-05-2018 Flash Glucose Scanning [place] (Freestyle [place] 14 Day [place]) misc Discontinued 0 .ROUTE .MEDSUPPLY 1 April 05, 2018 12:00am April 05, 2018 1:44pm use to moniter BG via sensor on back of arm Start: 04-05-2018 End: 04-05-2018 Flash Glucose Scanning [place] (Freestyle [place] 14 Day [place]) misc Discontinued 0 .ROUTE .MEDSUPPLY 1 April [...] evening, # 15 mL, 11 Refill(s), Pharmacy: [facility] Start Date: 04/10/19 Status: Ordered [...] SOLN inject 19 units daily INSULIN GLARGINE [id number] Sherif Gaitan NP Start: 10-29-2010 LANTUS 100 UNI T/ML SOLN as directed INSULIN GLARGINE [id number] Clyde Smith MD 3 ml insulin lispro [...] 2 unit 300-349 3 unit INSULIN LISPRO [id number] Sherif Mira Gaitan HYDROSTATIC TUBING TESTER Start: 10-29-2010 HUMALOG SOLN T bret as directed INSULIN LISPRO (HUMAN) SOLN [id number] Soledad Hickey lansoprazole 30 mg delayed release [...] CPDR One tablet by mouth daily LANSOPRAZOLE [id number] Clyde Smith MD mecobalamin 1 mg chewable [...] One tablet by mouth at bedtime. NIACIN 42381448376 Patric Colon MD omeprazole 20 mg delayed release oral tablet (1 source) Proton Pump Inhibitor take 1 tablet by mouth once daily PRILOSEC OTC 20 MG TBEC One tablet by mouth daily OMEPRAZOLE MAGNESIUM 73362335271 Patric Colon MD pravastatin sodium 40 mg oral tablet (5 sources) HMG-CoA Reductase Inhibitor Start: 09-02-2014 End: 03-10-2015 take 1 tablet by mouth at bedtime PRAVASTATIN SODIUM 40 MG TABS One tablet by mouth at bedtime. PRAVASTATIN SODIUM [id number] Clyde Smith MD Start: 02-14-2014 End: 03-13-2014 take 1 tablet by mouth once daily PRAVASTATIN SODIUM 20 MG TABS One tablet by mouth daily PRAVASTATIN SODIUM [id number] Ashli Fried RN pregabalin 75 mg oral [...] mouth once daily INDERAL LA 60 MG [id number] One tablet by mouth daily PROPRANOLOL HCL 18101137506 Urban Jesus MD WALKING BOOT FOR THE [...] (1 source) Drug-induced immunodeficiency ; Translations: [Other intermediate (current) drug therapy] Onset: 07-04-2016 07-04-2016 Chronic Nutritional deficiencies (9 sources) Cobalamin deficiency; Translations: [Deficiency of other specified B group vitamins] 10-26-2020 Episodic Other aftercare (1 source) Other intermediate (current) drug therapy; Translations: [Other intermediate (current) drug therapy] Onset: 01-10-2025 Episodic Other aftercare (1 source) roasterman (current) use of insulin; Translations: [roasterman (current) use of insulin] Onset: 10-18-2024 Episodic Other eye disorders (9 sources) Feeling of sand or foreign body in eye; Translations: [Unspecified disorder of eye and adnexa] 03-01-2014 Episodic Other inflammatory condition of skin (1 source) Psoriasis; Translations: [Psoriasis, unspecified] Onset: 07-04-2016 07-04-2016 Chronic Other nervous system disorders (1 source) [...] (1 source) Long-term drug therapy; Translations: [Other long term care social worker (current) drug therapy] Onset: 10-29-2010 10-29-2010 Unclassified [...] Test Name Value Interpretation Reference Range Facility Hepatitis C,RNA PCR Viral Lo automatic blocker 01-14-2025 HCV log 10 TNP Normal . [facility] Comment on above: Performed By: #### L 7000.7000, L100.0100, L501.4100, L501.4405, L3400.8000 ####[facility] [address] [place], [place], [id number] HCV QT RNA PCR Not detected Normal . [facility] Comment on above: Performed By: #### L 7000.7000, L100.0100, L501.4100, L501.4405, L3400.8000 ####[facility] [address] [place], [address] TEST INFO: Comment Normal . [facility] Comment on above: Result Comment: The quantitative range of this assay is 15 IU/mL to 100 million IU/mL. Performed By: #### L 7000.7000, L100.0100, L501.4100, L501.4405, L3400.8000 ####[facility] [address] [place], [address] Quantiferon TB-Gold+on 01-14 QFT MITOGEN ARTUR TNP Normal . [facility] Comment on above: Result Comment: Test not performed Performed By: #### L 7000.7000, L100.0100, L501.4100, L501.4405, L3400.8000 #### [facility] [address] [place], [address] QFT NIL VALUE TNP Normal . [facility] Comment on above: Result Comment: Test not performed Performed By: #### L 7000.7000, L100.0100, L501.4100, L501.4405, L3400.8000 #### [facility] [address] [place], [address] QFT TB GOLD+ TNP Normal . [facility] Comment on above: Performed By: #### L 7000.7000, L100.0100, L501.4100, L501.4405, L3400.8000 #### [facility] [address] [place], [address] QFT TB POS CRIT TNP Normal . [facility] Comment on above: Performed By: #### L 7000.7000, L100.0100, L501.4100, L501.4405, L3400.8000 #### [facility] [address] [place], [address] QFT TB1+ AG ARTUR TNP Normal . [facility] Comment on above: Result Comment: Test not performed. No specimen received. CONTACTED YOUR FACILITY VIA EMAIL ON 01-11-2025 Performed By: #### L 7000.7000, L100.0100, L501.4100, L501.4405, L3400.8000 #### [facility] [address] [place], [address] QFT TB2+ AG ARTUR TNP Normal . [facility] Comment on above: Result Comment: Test not performed Performed By: #### L 7000.7000, L100.0100, L501.4100, L501.4405, L3400.8000 #### [facility] [address] [place], [address] AST(SGOT)on 01-10-2025 AST [Catalytic activity/Vol] 17 U/L Normal <=[address] [facility] Comment on above: Performed By: #### L 7000.7000, L100.0100, L501.4100, L501.4405, L3400.8000 #### [facility] [address] [place], [address] Alanine Aminotransferas (SGP T)on 01-10-2025 ALT [Catalytic activity/Vol] 12 U/L Normal <=[address] [facility] Comment on above: Performed By: #### L 7000.7000, L100.0100, L501.4100, L501.4405, L3400.8000 #### [facility] [address] [place], [address] CBC W/Diff, Automatedon 11-0 Absolute Lymph 1.07 X10 3/uL Normal 0.83-4.[address] [facility] Comment on above: Performed By: #### L 7000.7000, L100.0100, L501.4100, L501.4405, L3400.8000 #### [facility] [address] [place], [address] Absolute Neut 1.9 X10 3/uL Low 2.0-7.[address] [facility] Comment on above: Performed By: #### L 7000.7000, L100.0100, L501.4100, L501.4405, L3400.8000 #### [facility] [address] [place], [address] Basophils/100 WBC (Bld) 1.7 % High 0-[address] [facility] Comment on above: Performed By: #### L 7000.7000, L100.0100, L501.4100, L501.4405, L3400.8000 #### [facility] [address] [place], [address] Eosinophils/100 WBC (Bld) 3.3 % Normal 0-[address] [facility] Comment on above: Performed By: #### L 7000.7000, L100.0100, L501.4100, L501.4405, L3400.8000 #### [facility] [address] [place], [address] Erythrocyte distribution width (RBC) [Ratio] 12.9 % Normal 11.6-14.[address] [facility] Comment on above: Performed By: #### L 7000.7000, L100.0100, L501.4100, L501.4405, L3400.8000 #### [facility] [address] [place], [address] Hematocrit (Bld) [Volume fraction] 38.2 % Low 40-[address] [facility] Comment on above: Performed By: #### L 7000.7000, L100.0100, L501.4100, L501.4405, L3400.8000 #### [facility] [address] [place], [address] Hemoglobin (Bld) [Mass/Vol] 13.1 g/dL Normal 13.0-16.[address] [facility] Comment on above: Performed By: #### L 7000.7000, L100.0100, L501.4100, L501.4405, L3400.8000 #### [facility] [address] [place], [address] IG% 0.300 Normal 0.0-0.[address] [facility] Comment on above: Result Comment: IG% - Immature Granulocytes (promyelocytes, myelocytes and metamyelocytes) > 1% indicates that a LEFT SHIFT is Present. Performed By: #### L 7000.7000, L100.0100, L501.4100, L501.4405, L3400.8000 #### [facility] [address] [place], [address] Lymphocytes/100 WBC (Bld) 29.7 % Normal 19-[address] [facility] Comment on above: Performed By: #### L 7000.7000, L100.0100, L501.4100, L501.4405, L3400.8000 #### [facility] [address] [place], [address] MCH (RBC) [Entitic mass] 31.4 pg Normal 27.0-32.[address] [facility] Comment on above: Performed By: #### L 7000.7000, L100.0100, L501.4100, L501.4405, L3400.8000 #### [facility] [address] [place], [address] MCHC (RBC) [Mass/Vol] 34.3 g/dL Normal 32-[address] [facility] Comment on above: Performed By: #### L 7000.7000, L100.0100, L501.4100, L501.4405, L3400.8000 #### [facility] [address] [place], [address] MCV (RBC) [Entitic vol] 91.6 fL Normal 80-[address] [facility] Comment on above: Performed By: #### L 7000.7000, L100.0100, L501.4100, L501.4405, L3400.8000 #### [facility] [address] [place], [address] Monocytes/100 WBC (Bld) 12.8 % High 0-[address] [facility] Comment on above: Performed By: #### L 7000.7000, L100.0100, L501.4100, L501.4405, L3400.8000 #### [facility] [address] [place], [address] Neutrophils/100 WBC (Bld) 52.2 % Normal 47-[address] [facility] Comment on above: Performed By: #### L 7000.7000, L100.0100, L501.4100, L501.4405, L3400.8000 #### [facility] [address] [place], [address] Nucleated RBC (Bld) [#/Vol] 0 10*3/uL Normal 0-[address] [facility] Comment on above: Performed By: #### L 7000.7000, L100.0100, L501.4100, L501.4405, L3400.8000 #### [facility] [address] [place], [address] Platelet mean volume (Bld) [Entitic vol] 9.7 fL Normal 6.2-12.[address] [facility] Comment on above: Performed By: #### L 7000.7000, L100.0100, L501.4100, L501.4405, L3400.8000 #### [facility] [address] [place], [address] Platelets (Bld) [#/Vol] 165 10*3/uL Normal 150-[address] [facility] Comment on above: Performed By: #### L 7000.7000, L100.0100, L501.4100, L501.4405, L3400.8000 #### [facility] [address] [place], [address] RBC (Bld) [#/Vol] 4.17 10*6/uL Low 4.6-6.2 [facility] Comment on above: Performed By: #### L 7000.7000, L100.0100, L501.4100, L501.4405, L3400.8000 #### [facility] [address] [place], [address] RDW SD 42.7 fl Normal 35.1-43.[address] [facility] Comment on above: Performed By: #### L 7000.7000, L100.0100, L501.4100, L501.4405, L3400.8000 #### [facility] [address] [place], [address] WBC (Bld) [#/Vol] 3.6 10*3/uL Low 4.4-11.0 [facility] Comment on above: Performed By: #### L 7000.7000, L100.0100, L501.4100, L501.4405, L3400.8000 #### [facility] [address] [place], [address] Chest PA and Lateralon 01-10 Chest PA and Lateral [facility] [address] [place] [address] Chest PA and Lateral MR#: [id number] Acct: [id number] Name: CAROLINE BECKETT Rep #: [id number] : 1960 M 64 From: Jeremias Alvarez PCP: Dr. Solis Harrington DO Status: REG CLI Study: Chest PA and Lateral Date of Exam: 01/10/25 Exam# [id number] Ordering Dr: Mat Nance MD PROCEDURE: CHEST PA AND LATERAL 01/10/2025 REASON FOR EXAM: SKIN/ PAIN TECHNIQUE: Procedure Code: RADCXR Modality: DX Procedure: CHEST PA AND LATERAL COMPARISON: Chest x-ray of 01/12/2024 RAD/Chest PA and Lateral IMPRESSION: Prior coronary artery stenting. Extensive chronic lung changes are again seen, similar to the prior study. No definite pulmonary edema is seen. No focal infiltrate is evident. No pleural effusion or pneumothorax is evident. The cardiomediastinal silhouette is stable, without evidence of cardiomegaly. Mild degenerative changes of the thoracic spine are seen. No acute osseous change is seen. No evidence of active disease. Reading Location: [facility] CC: Dr. Solis Harrington DO; Dr. Mat Nance MD Endoscopy Registered Nurse: Signed Normal [facility] Endocrinology Visit Reporton 10-18-2024 Endocrinology Visit Report [facility] [address] [place] [address]. [address] [place] [address] OFFICE VISIT Date of Service: 10/18/24 MR#: [id number] Acct: [id number] Name: CAROLINE BECKETT Rep #: [id number] : 1960 Provider: Genesis Strickland Age/Sex: 64/M Location[facility] Status: Signed Intake Vital Signs 04/05/24 11:19 [...] normal Periorbita (more content not included)... Normal [facility] Bilirubin directOrdered By: Patty Mcmahan on 06-21-2024 Bilirubin.direct [Mass/Vol] 0.39 mg/dL High 0.00-0.[address] [facility] Bilirubin, totalOrdered By: Patty Mcmahan on 06-21-2024 Bilirubin [Mass/Vol] 0.97 mg/dL 0.00-1.30 [facility] Calculated very low density lipoprotein (VLDL) cholesterol measurementOrdered By: Patty Mcmahan on 06-21-2024 Calculated very low density lipoprotein (VLDL) cholesterol measurement 18 mg/dL 5-[address] [facility] LDL calc ser/plasOrdered By: Patty Mcmahan on 06-21-2024 Cholesterol in LDL [Mass/Vol] 115 mg/dL [facility] Comment on above: Ozaevovqtg=356-332 m g/dL & Higher Ewxu=181 mg/dL or greater Laboratory - Chemistry and C hemistry - challengeOrdered By: Patty Mcmahan on 06-21-2024 AST [Catalytic activity/Vol] 17 U/L <[address] [facility] Lipid Profileon 06-21-2024 CHOL:HDL 3.[address] [facility] Comment on above: Performed By: #### L 500.0025, L500.1902 #### [facility] [address] [place], [address] Cholesterol [Mass/Vol] 183 mg/dL Normal <=[address] [facility] Comment on above: Result Comment: Chol esterol level, Desirable <200 mg/dL Borderline high cholesterol 200-239 mg/dL High cholesterol >=240 mg/dL Recommendations of the NCEP Adult Treatment Panel for the following risk-cutoff thresholds for the [place] population. Performed By: #### L 500.4100, L500.3400 #### [facility] [address] [place], [address] Cholesterol in HDL [Mass/Vol] 50 mg/dL Normal [facility] Comment on above: Result Comment: Sharmin onal Cholesterol Education Program (NCEP) guidelines: <40 mg/dL: Low HDL-cholesterol (major risk factor for CHD) >= 60 mg/dL: High HDL-cholesterol (negative risk factor for CHD) HDL-cholesterol is affected by a number of factors, e.g. smoking, exercise, hormones, sex and age. Performed By: #### L 500.4100, L500.3400 #### [facility] [address] [place], [address] Cholesterol in LDL [Mass/Vol] 115 mg/dL Normal [facility] Comment on above: Result Comment: Bord tpxnoe=902-269 mg/dL Higher Qcln=013 mg/dL or greater Performed By: #### L 500.4100, L500.3400 #### [facility] [address] [place], [address] Cholesterol in VLDL [Mass/Vol] 18 mg/dL Normal 5-[address] [facility] Comment on above: Performed By: #### L 500.4100, L500.3400 #### [facility] [address] [place], [address] Triglyceride [Mass/Vol] 91 mg/dL Normal [facility] Comment on above: Result Comment: The drugs N-Acetylcysteine and Metamizole may falsely depress this assay. Normal range: <150 mg/dL Borderline High: 150-199 mg/dL High: 200-499 mg/dL Very High: >500 mg/dL Performed By: #### L 500.4100, L500.3400 #### [facility] [address] [place], [address] Liver Profileon 06-21-2024 Albumin [Mass/Vol] 4.2 g/dL Normal 3.4-4.8 [facility] Comment on above: Performed By: #### L 500.4100, L500.3400 #### [facility] [address] [place], [address] ALK PHOS 91 U/L Normal 40-[address] [facility] Comment on above: Performed By: #### L 500.4100, L500.3400 #### [facility] [address] [place], [address] ALT [Catalytic activity/Vol] 10 U/L Normal <=[address] [facility] Comment on above: Performed By: #### L 500.4100, L500.3400 #### [facility] [address] [place], [address] AST [Catalytic activity/Vol] 17 U/L Normal <=[address] [facility] Comment on above: Performed By: #### L 500.4100, L500.3400 #### [facility] [address] [place], [address] Bilirubin [Mass/Vol] 0.97 mg/dL Normal 0.00-1.30 [facility] Comment on above: Performed By: #### L 500.4100, L500.3400 #### [facility] [address] [place], [address] Bilirubin.direct [Mass/Vol] 0.39 mg/dL High 0.00-0.[address] [facility] Comment on above: Performed By: #### L 500.4100, L500.3400 #### [facility] [address] [place], [address] Globulin (S) [Mass/Vol] 3.0 g/dL Normal 2.2-4.[address] [facility] Comment on above: Performed By: #### L 500.4100, L500.3400 #### [facility] [address] [place], [place], [id number] T PROT 7.2 g/dL Normal 5.9-8.[address] [facility] Comment on above: Performed By: #### L 500.4100, L500.3400 #### [facility] [address] [place], [place], [id number] Screening total cholesterol/ high density lipoprotein (HDL) cholesterol ratioOrdered By: Patty Mcmahan on 06-21-2024 Cholesterol.total/Ch olesterol in HDL [Mass ratio] 3.65 {ratio} [facility] Serum globulin measurementOr dered By: Patty Mcmahan on 06-21-2024 Globulin (S) [Mass/Vol] 3.0 g/dL 2.2-4.[address] [facility] Serum or plasma alanine strong otransferase (ALT) measurementOrdered By: Patty Mcmahan on 06-21-2024 ALT [Catalytic activity/Vol] 10 U/L <[address] [facility] Serum or plasma albumin jacki urement (mass/volume)Ordered By: Patty Mcmahan on 06-21-2024 Albumin [Mass/Vol] 4.2 g/dL 3.4-4.8 [facility] Serum or plasma alkaline marybel sphatase measurementOrdered By: Patty Mcmahan on 06-21-2024 ALP [Catalytic activity/Vol] 91 U/L 40-[address] [facility] Serum or plasma cholesterol in HDL measurement (mass/volume)Ordered By: Patty Mcmahan on 06-21-2024 Cholesterol in HDL [Mass/Vol] 50 mg/dL >[address] [facility] Comment on above: National Cholesterol Education Program (NCEP) guidelines:<40 mg/dL: Low HDL-cholesterol (major risk factor for CHD)>= 60 mg/dL: High HDL-cholesterol (negative risk factor for CHD)HDL-cholesterol is affected by a number of factors, e.g. smoking, exercise, hormones, sex and age. Serum or plasma cholesterol measurement (mass/volume)Ordered By: Patty Mcmahan on 06-21-2024 Cholesterol [Mass/Vol] 183 mg/dL <201 [place] [facility] Comment on above: Cholesterol level, D esirable <200 mg/dLBorderline high cholesterol 200-239 mg/dLHigh cholesterol >=240 mg/dLRecommendations of the NCEP Adult Treatment Panel for the following risk-cutoff thresholds for the [place] population. Total proteinOrdered By: Chau Mcmahan on 06-21-2024 Protein [Mass/Vol] 7.2 g/dL 5.9-8.4 [facility] Triglycerides measurementOrd ered By: Patty Martir on 06-21-2024 Triglyceride [Mass/Vol] 91 mg/dL <[address] [facility] Comment on above: The drugs N-Acetylcy steine and Metamizole may falsely depress this assay. Normal range: <150 mg/dLBorderline High: 150-199 mg/dLHigh: 200-499 mg/dLVery High: >500 mg/dL Cardiology Visit Reporton Cardiology Visit Report 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 Normal [facility] Endocrinology Visit Reporton 04-05-2024 Endocrinology Visit Report [facility] [address] [place] [address]. [address] [place] [address] OFFICE VISIT Date of Service: 04/05/24 MR#: [id number] Acct: [id number] Name: CAROLINE BECKETT Rep #: [id number] : 1960 Provider: Genesis Strickland Age/Sex: 63/M Location: [facility] Status: Signed Intake Vital Signs 10/04/23 15:46 [...] 90 mg/mL subcutaneous 90 mg subcut Q3M 02/21/22 01/31/2 5 History syringe ramipril 10 mg capsule [...] swallowing Genito (more content not included)... Normal [facility] MRI BRAIN W/ + W/O CONTRASTo n [...] 12/22/2023 3:31:43 PM Ordering Provider: CLAIR Conrad [facility] Basophil percentageOrdered B y: Amaury Casiano on 04-13-2023 Chloride [Moles/Vol] 102 mmol/L 98-107 [facility] Glucose [Mass/Vol] 164 mg/dL 74-106 [facility] Comment on above: Fasting Glucose resu lt greater than or equal to 126 mg/dL suggests DIABETES MELLITUS per A.D.A. criteria. Potassium [Moles/Vol] 4.1 mmol/L 3.5-5.[address] [facility] Sodium [Moles/Vol] 136 mmol/L 136-145 [facility] Laboratory - Chemistry and C hemistry - challengeOrdered By: Amaury Casiano on 04-13-2023 CO2 [Moles/Vol] 29.0 mmol/L 21.0-32.[address] [facility] Urea nitrogen/Creatinine [Mass ratio] 14.0 mg/mg 10-[address] [facility] No Panel InformationOrdered By: Amaury Casiano on 04-13-2023 Estimated GFR (MDRD) Amer 68 mL/min >[address] [facility] Comment on above: GFR Calc Estimated GFR (MDRD) Non-Af Amer 56 mL/min >[address] [facility] Comment on above: Non- GFR Calc Serum or plasma calcium jacki urement (mass/volume)Ordered By: Amaury Casiano on 04-13-2023 Calcium [Mass/Vol] 9.2 mg/dL 8.5-10.1 [facility] Serum or plasma creatinine m easurement (mass/volume)Ordered By: Amaury Casiano on 04-13-2023 Creatinine [Mass/Vol] 1.36 mg/dL 0.70-1.[address] [facility] Comment on above: The validity of the calculated GFR & GFRAA in patients over 70 years has not been determined. Clinical correlation is essential. Serum or plasma urea nitroge n measurement (mass/volume)Ordered By: Amaury Casiano on 04-13-2023 Urea nitrogen [Mass/Vol] 19 mg/dL 7-[address] [facility] Thin prep Papanicolaou smear with manual screeningOrdered By: Amaury Casiano on 04-13-2023 Thin prep Papanicolaou smear with manual screening 5 5-[address] [facility] Absolute lymphocyte countOrd ered By: Mat Nance on 11-24-2022 Lymphocytes Auto (Unsp spec) [#/Vol] 1.72 10*3/uL 0.83-4.[address] [facility] Basophil percentageOrdered B y: Mat Nance on 11-24-2022 Basophil percentage TNP [facility] Comment on above: Test not performed Basophils/100 WBC (Bld) 0.7 % 0-[address] [facility] Bilirubin [Mass/Vol] 0.50 mg/dL 0.20-1.00 [facility] Comment on above: For patients on eltr ombopag therapy, use of Dimension [employer]ucks TBIL is not recommended. Eosinophils/100 WBC (Bld) 2.3 % 0-[address] [facility] Neutrophils (Bld) [#/Vol] 4.3 10*3/uL 2.0-7.[address] [facility] Neutrophils/100 WBC (Bld) 62.6 % 47-[address] [facility] Protein [Mass/Vol] 6.8 g/dL 6.4-8.2 [facility] WBC (Bld) [#/Vol] 6.9 10*3/uL 4.4-11.0 [facility] Blood erythrocytes count (nu mber/volume)Ordered By: Mat Nance on 11-24-2022 RBC (Bld) [#/Vol] 3.95 10*6/uL 4.6-6.2 [facility] Blood hemoglobin measurement (mass/volume)Ordered By: Mat Nance on 11-24-2022 Hemoglobin (Bld) [Mass/Vol] 12.9 g/dL 13.0-16.[address] [facility] Blood lymphocytes/100 leukoc ytesOrdered By: Mat Nance on 11-24-2022 Lymphocytes/100 WBC (Bld) 24.8 % 19-[address] [facility] Blood monocytes/100 leukocyt esOrdered By: Mat Nacne on 11-24-2022 Monocytes/100 WBC (Bld) 9.5 % 0-[address] [facility] Blood platelet mean volumeOr dered By: Mat Nance on 11-24-2022 Platelet mean volume (Bld) [Entitic vol] 9.6 fL 6.2-12.[address] [facility] Determination of erythrocyte mean corpuscular volume (MCV)Ordered By: Mat Nance on 11-24-2022 MCV (RBC) [Entitic vol] 91.9 fL 80-[address] [facility] Direct bilirubinOrdered By: Mat Nance on 11-24-2022 Bilirubin.direct [Mass/Vol] 0.13 mg/dL 0.00-0.[address] [facility] Hematocrit Auto (Bld) [Volum e fraction]Ordered By: Mat Nance on 11-24-2022 Hematocrit (Bld) [Volume fraction] 36.3 % 40-[address] [facility] Laboratory - Chemistry and C hemistry - challengeOrdered By: Mat Nance on 11-24-2022 ALP [Catalytic activity/Vol] 87 U/L 45-[address] [facility] ALT [Catalytic activity/Vol] 21 U/L 16-[address] [facility] Globulin (S) [Mass/Vol] 3.0 g/dL 2.2-4.[address] [facility] Laboratory - Hematology and Cell countsOrdered By: Mat Nance on 11-24-2022 Erythrocyte distribution width (RBC) [Entitic vol] 43.4 fL 35.1-43.[address] [facility] Erythrocyte distribution width (RBC) [Ratio] 13.0 % 11.6-14.[address] [facility] Immature granulocytes/100 WBC (Bld) 0.100 % 0.0-0.[address] [facility] Comment on above: IG% - Immature Granu locytes (promyelocytes, myelocytes and metamyelocytes) > 1% indicates that a LEFT SHIFT is Present. MCH (RBC) [Entitic mass] 32.7 pg 27.0-32.[address] [facility] Nucleated RBC/100 WBC (Bld) [Ratio] 0 % 0-[address] [facility] MCHC Auto (RBC) [Mass/Vol]Or dered By: Mat Nance on 11-24-2022 MCHC (RBC) [Mass/Vol] 35.5 g/dL 32-[address] [facility] No Panel InformationOrdered By: Mat Nance on 11-24-2022 Addendum Document Comment . [facility] Comment on above: The quantitative ran ge of this assay is 15 IU/mL to 100million IU/mL.Performed at: [facility] [id number] [place], [place] [id number] Director: Ranjan Castorena PhD, Phone: [phone] at: [facility] [address] [id number] Director: Carroll Butts MD, Phone: [phone] Platelets bldOrdered By: Georges Nance on 11-24-2022 Platelets (Bld) [#/Vol] 186 10*3/uL 150-[address] [facility] Qualitative QuantiFERON-TB g old in tube testOrdered By: Mat Nance on 11-24-2022 M. tuberculosis tuberculin stim IFN-g Ql (Bld) 0.65 IU/mL . [facility] Serum or plasma albumin jacki urement (mass/volume)Ordered By: Mat Nance on 11-24-2022 Albumin [Mass/Vol] 3.8 g/dL 3.2-5.0 [facility] Serum or plasma hepatitis C virus RNA measurement by probe and target amplification mOrdered By: Mat Nance on 11-24-2022 HCV RNA JOLENE+probe Qn Not detected . [facility] Thin prep Papanicolaou smear with manual screeningOrdered By: Mat Nance on 11-24-2022 Thin prep Papanicolaou smear with manual screening 13 U/L 15-[address] [facility] Thin prep Papanicolaou smear with manual screening Comment . [facility] Comment on above: QuantiFERON-TB Gold Plus is [...] smear with manual screening 0.66 IU/mL . [facility] Thin prep Papanicolaou smear with manual screening 0.05 IU/mL . [facility] Thin prep Papanicolaou smear with manual screening > 10.00 IU/mL . [facility] Thin prep Papanicolaou smear with manual screening Positive Negative [facility] Comment on above: A response to M tube rculosis antigens has been detected.If patient is at low risk for Tuberculosis, the resultshould be interpreted with caution and repeat testing on anew specimen is recommended (ATS/IDSA/CDC Clinical PracticeGuidelines, 2017). False positives can also occur due toinfection by M kansasii, M szshantigai, or M marinum.The specimen received for QuantiFERON testing was incubatedby the ordering institution. Specific procedures outlinedin our Directory of Services and in the package insert forthe QuantiFERON Gold (In Tube) test must be followed toenable for proper stimulation of cells for the productionof interferon gamma. Chemiluminescence immunoassaymethodology No Panel InformationOrdered By: Amaury Casiano on 09-26-2022 Prostate Specific Antigen Screen 0.32 ng/mL 0.00-4.[address] [facility] Comment on above: This test was perfor med using the TPSA assay method for [employer] chemistry system. Values obtained with differentassay methods cannot be used interchangably.When changing PSA assays in the course of monitoring apatient, additional sequential testing should be carriedout to confirm baseline values. Whole blood hemoglobin A1c/t otal hemoglobin ratio (mass fraction)Ordered By: Lei Vasquez on 08-12-2022 HbA1c (Bld) [Mass fraction] 6.2 % 3.8-5.[address] [facility] Comment on above: Normal < 5.7 % Predi abetic 5.7 - 6.4 % Diabetic >or= 6.5 % Please note range changes. No Panel Informationon 02-16 Urine Microalbumin/Creatin ine Ratio 24.0 mg/g CRE <[address] [facility] Work Phone: Thin prep Papanicolaou smear with manual screeningon 02-16-2022 Thin prep Papanicolaou smear with manual screening 36.0 mg/L NO RANGE EST. [facility] Work Phone: Urine creatinine measurement (mass/volume)on 02-16-2022 Creatinine (U) [Mass/Vol] 150.00 mg/dL NO RANGE EST. [facility] Work Phone: Laboratory - Hematology and Cell countson 02-07-2022 HbA1c (Bld) [Mass fraction] 6.1 % 4.2-6.[address] [facility] Work Phone: Absolute lymphocyte counton 11-30-2021 Lymphocytes Auto (Unsp spec) [#/Vol] 2.01 10*3/uL 0.83-4.[address] [facility] Work Phone: Basophil percentageon 2021 Basophil percentage TNP [facility] Work Phone: Comment on above: Test not performed Basophils/100 WBC (Bld) 0.8 % 0-[address] [facility] Work Phone: Bilirubin [Mass/Vol] 0.50 mg/dL 0.20-1.00 [facility] Work Phone: Comment on above: For patients on eltr ombopag therapy, use of Dimension [employer] TBIL is not recommended. Eosinophils/100 WBC (Bld) 1.8 % 0-[address] [facility] Work Phone: Neutrophils (Bld) [#/Vol] 3.6 10*3/uL 2.0-7.[address] [facility] Work Phone: Neutrophils/100 WBC (Bld) 55.7 % 47-[address] [facility] Work Phone: Protein [Mass/Vol] 7.4 g/dL 6.4-8.2 [facility] Work Phone: WBC (Bld) [#/Vol] 6.5 10*3/uL 4.4-11.0 [facility] Work Phone: Blood erythrocytes count (nu mber/volume)on 11-30-2021 RBC (Bld) [#/Vol] 4.17 10*6/uL 4.6-6.2 [facility] Work Phone: Blood hemoglobin measurement (mass/volume)on 11-30-2021 Hemoglobin (Bld) [Mass/Vol] 13.3 g/dL 13.0-16.[address] [facility] Work Phone: Blood lymphocytes/100 leukoc yteson 11-30-2021 Lymphocytes/100 WBC (Bld) 30.8 % 19-[address] [facility] Work Phone: Blood monocytes/100 leukocyt eson 11-30-2021 Monocytes/100 WBC (Bld) 10.7 % 0-[address] [facility] Work Phone: Blood platelet mean volumeon 11-30-2021 Platelet mean volume (Bld) [Entitic vol] 9.7 fL 6.2-12.[address] [facility] Work Phone: Determination of erythrocyte mean corpuscular volume (MCV)on 11-30-2021 MCV (RBC) [Entitic vol] 91.8 fL 80-[address] [facility] Work Phone: Direct bilirubinon 2 Bilirubin.direct [Mass/Vol] 0.13 mg/dL 0.00-0.[address] [facility] Work Phone: Hematocrit Auto (Bld) [Volum e fraction]on 11-30-2021 Hematocrit (Bld) [Volume fraction] 38.3 % 40-[address] [facility] Work Phone: Laboratory - Chemistry and C hemistry - challengeon 11-30-2021 ALP [Catalytic activity/Vol] 66 U/L 45-[address] [facility] Work Phone: ALT [Catalytic activity/Vol] 19 U/L 16-[address] [facility] Work Phone: Globulin (S) [Mass/Vol] 3.3 g/dL 2.2-4.[address] [facility] Work Phone: Laboratory - Hematology and Cell countson 11-30-2021 Erythrocyte distribution width (RBC) [Entitic vol] 45.0 fL 35.1-43.[address] [facility] Work Phone: Erythrocyte distribution width (RBC) [Ratio] 13.3 % 11.6-14.[address] [facility] Work Phone: Immature granulocytes/100 WBC (Bld) 0.200 % 0.0-0.[address] [facility] Work Phone: Comment on above: IG% - Immature Granu locytes (promyelocytes, myelocytes and metamyelocytes) > 1% indicates that a LEFT SHIFT is Present. MCH (RBC) [Entitic mass] 31.9 pg 27.0-32.[address] [facility] Work Phone: Nucleated RBC/100 WBC (Bld) [Ratio] 0 % 0-[address] [facility] Work Phone: MCHC Auto (RBC) [Mass/Vol]on 11-30-2021 MCHC (RBC) [Mass/Vol] 34.7 g/dL 32-[address] [facility] Work Phone: No Panel Informationon 11-30 Addendum Document Comment . [facility] Work Phone: Comment on above: The quantitative ran ge of this assay is 15 IU/mL to 100million IU/mL.Performed at: [facility] [employer] [id number] Director: Ranjan Castorena PhD, Phone: [phone] at: [facility] [address] [id number] Director: Carroll Butts MD, Phone: [phone] Platelets bldon 11-30-2021 Platelets (Bld) [#/Vol] 203 10*3/uL 150-[address] [facility] Work Phone: Qualitative QuantiFERON-TB g old in tube teston 11-30-2021 M. tuberculosis tuberculin stim IFN-g Ql (Bld) 0.43 IU/mL . [facility] Work Phone: Serum or plasma albumin jacki urement (mass/volume)on 11-30-2021 Albumin [Mass/Vol] 4.1 g/dL 3.2-5.0 [facility] Work Phone: Serum or plasma hepatitis C virus RNA measurement by probe and target amplification mon 11-30-2021 HCV RNA JOLENE+probe Qn Not detected . [facility] Work Phone: Thin prep Papanicolaou smear with manual screeningon 11-30-2021 Thin prep Papanicolaou smear with manual screening 13 U/L 15-[address] [facility] Work Phone: Thin prep Papanicolaou smear with manual screening Comment . [facility] Work Phone: Comment on above: QuantiFERON-TB Gold [...] smear with manual screening 0.37 IU/mL . [facility] Work Phone: Thin prep Papanicolaou smear with manual screening 0.14 IU/mL . [facility] Work Phone: Thin prep Papanicolaou smear with manual screening > 10.00 IU/mL . [facility] Work Phone: Thin prep Papanicolaou smear with manual screening Negative Negative [facility] Work Phone: Comment on above: No response [...] Auto (Unsp spec) [#/Vol] 1.48 10*3/uL 0.83-4.[address] [facility] Work Phone: Basophil percentageon 2021 Basophils/100 WBC (Bld) 0.9 % 0-[address] [facility] Work Phone: Chloride [Moles/Vol] 108 mmol/L 98-107 [facility] Work Phone: Eosinophils/100 WBC (Bld) 2.4 % 0-[address] [facility] Work Phone: Glucose [Mass/Vol] 117 mg/dL 74-106 [facility] Work Phone: Comment on above: Fasting Glucose resu lt from 100 to 125 mg/dL suggests IMPAIRED HOMEOSTASIS per A.D.A. criteria. Neutrophils (Bld) [#/Vol] 2.4 10*3/uL 2.0-7.[address] [facility] Work Phone: Neutrophils/100 WBC (Bld) 51.9 % 47-[address] [facility] Work Phone: Potassium [Moles/Vol] 3.8 mmol/L 3.5-5.[address] [facility] Work Phone: Sodium [Moles/Vol] 143 mmol/L 136-145 [facility] Work Phone: WBC (Bld) [#/Vol] 4.5 10*3/uL 4.4-11.0 [facility] Work Phone: Blood erythrocytes count (nu mber/volume)on 11-25-2021 RBC (Bld) [#/Vol] 4.24 10*6/uL 4.6-6.2 [facility] Work Phone: Blood hemoglobin measurement (mass/volume)on 11-25-2021 Hemoglobin (Bld) [Mass/Vol] 13.3 g/dL 13.0-16.[address] [facility] Work Phone: Blood lymphocytes/100 leukoc yteson 11-25-2021 Lymphocytes/100 WBC (Bld) 32.7 % 19-[address] [facility] Work Phone: Blood monocytes/100 leukocyt eson 11-25-2021 Monocytes/100 WBC (Bld) 11.9 % 0-[address] [facility] Work Phone: Blood platelet mean volumeon 11-25-2021 Platelet mean volume (Bld) [Entitic vol] 9.9 fL 6.2-12.[address] [facility] Work Phone: Determination of erythrocyte mean corpuscular volume (MCV)on 11-25-2021 MCV (RBC) [Entitic vol] 92.0 fL 80-[address] [facility] Work Phone: Hematocrit Auto (Bld) [Volum e fraction]on 11-25-2021 Hematocrit (Bld) [Volume fraction] 39.0 % 40-[address] [facility] Work Phone: Laboratory - Chemistry and C hemistry - challengeon 11-25-2021 CO2 [Moles/Vol] 29.0 mmol/L 21.0-32.[address] [facility] Work Phone: Urea nitrogen/Creatinine [Mass ratio] 13.1 mg/mg 10-[address] [facility] Work Phone: Laboratory - Hematology and Cell countson 11-25-2021 Erythrocyte distribution width (RBC) [Entitic vol] 44.8 fL 35.1-43.[address] [facility] Work Phone: Erythrocyte distribution width (RBC) [Ratio] 13.2 % 11.6-14.[address] [facility] Work Phone: Immature granulocytes/100 WBC (Bld) 0.200 % 0.0-0.[address] [facility] Work Phone: Comment on above: IG% - Immature Granu locytes (promyelocytes, myelocytes and metamyelocytes) > 1% indicates that a LEFT SHIFT is Present. MCH (RBC) [Entitic mass] 31.4 pg 27.0-32.[address] [facility] Work Phone: Nucleated RBC/100 WBC (Bld) [Ratio] 0 % 0-[address] [facility] Work Phone: MCHC Auto (RBC) [Mass/Vol]on 11-25-2021 MCHC (RBC) [Mass/Vol] 34.1 g/dL 32-[address] [facility] Work Phone: No Panel Informationon 11-25 Estimated GFR (MDRD) Amer 98 mL/min >[address] [facility] Work Phone: Comment on above: GFR Calc Estimated GFR (MDRD) Non-Af Amer 81 mL/min >[address] [facility] Work Phone: Comment on above: Non- GFR Calc Platelets bldon 11-25-2021 Platelets (Bld) [#/Vol] 188 10*3/uL 150-[address] [facility] Work Phone: Serum or plasma calcium jacki urement (mass/volume)on 11-25-2021 Calcium [Mass/Vol] 9.1 mg/dL 8.5-10.1 [facility] Work Phone: Serum or plasma creatinine m easurement (mass/volume)on 11-25-2021 Creatinine [Mass/Vol] 0.99 mg/dL 0.70-1.[address] [facility] Work Phone: Comment on above: The validity of the calculated GFR & GFRAA in patients over 70 years has not been determined. Clinical correlation is essential. Serum or plasma urea nitroge n measurement (mass/volume)on 11-25-2021 Urea nitrogen [Mass/Vol] 13 mg/dL 7-[address] [facility] Work Phone: Thin prep Papanicolaou smear with manual screeningon 11-25-2021 Thin prep Papanicolaou smear with manual screening 6 5-[address] [facility] Work Phone: Whole blood hemoglobin A1c/t otal hemoglobin ratio (mass fraction)on 11-25-2021 HbA1c (Bld) [Mass fraction] 6.0 % 3.8-5.[address] [facility] Work Phone: Comment on above: Normal < 5.7 % Predi abetic 5.7 - 6.4 % Diabetic >or= 6.5 % Please note range changes. Basophil percentageon 07-28- 2022 Bilirubin [Mass/Vol] 0.40 mg/dL 0.20-1.00 [facility] Work Phone: Comment on above: For patients on eltr ombopag therapy, use of [employer] [place] TBIL is not recommended. Cholesterol [Mass/Vol] 179 mg/dL <[address] [facility] Work Phone: Comment on above: <200 mg/dL Desirable 200-240 mg/dL Borderline >240 mg/dL High Risk Protein [Mass/Vol] 7.0 g/dL 6.4-8.2 [facility] Work Phone: Triglyceride [Mass/Vol] 184 mg/dL <[address] [facility] Work Phone: Comment on above: The drugs N-Acetylcy steine and Metamizole may falsely depress this assay.Serum Triglycerides Reference Interval Normal <150 mg/dL Borderline high 150 - 199 mg/dL High 200 - 499 mg/dL Very High > or = 500 mg/dL Direct bilirubinon 2 Bilirubin.direct [Mass/Vol] 0.13 mg/dL 0.00-0.[address] [facility] Work Phone: Laboratory - Chemistry and C hemistry - challengeon 09-30-2021 ALP [Catalytic activity/Vol] 74 U/L 45-[address] [facility] Work Phone: ALT [Catalytic activity/Vol] 19 U/L 16-[address] [facility] Work Phone: Globulin (S) [Mass/Vol] 3.2 g/dL 2.2-4.[address] [facility] Work Phone: Serum or plasma albumin jacki urement (mass/volume)on 09-30-2021 Albumin [Mass/Vol] 3.8 g/dL 3.2-5.0 [facility] Work Phone: Serum or plasma cholesterol in HDL measurement (mass/volume)on 09-30-2021 Cholesterol in HDL [Mass/Vol] 51 mg/dL >[address] [facility] Work Phone: Comment on above: The drugs N-Acetylcy steine and Metamizole may falsely depress this assay. Reference Range HDL <40 mg/dL Low HDL Cholesterol HDL >or= 60 mg/dL High HDL Cholesterol Serum or plasma cholesterol in VLDL measurement (mass/volume)on 09-30-2021 Cholesterol in VLDL [Mass/Vol] 37 mg/dL 5-[address] [facility] Work Phone: Serum or plasma low density lipoprotein (LDL) cholesterol measurement (mass/volume)on 09-30-2021 Cholesterol in LDL [Mass/Vol] 91 mg/dL 0-[address] [facility] Work Phone: Thin prep Papanicolaou smear with manual screeningon 09-30-2021 Thin prep Papanicolaou smear with manual screening 15 U/L 15-[address] [facility] Work Phone: CNOVon 10-14-2020 CNOV Office Visit (PSYLWM ) -------- CAROLINE BECKETT ([id number]) 1960 M IPA Date Time Provider Department 10/14/20 11:00 AM KARSON BASS PSYLWM During your visit today, we recorded the following information about you: Karson Bass, PhD 10/14/2020 12:59 PM Signed [facility] Progress Note Caroline Beckett 10/14/2020 [id number] Provider: Karson Bass PhD CPT Code: 77130 Psychiatric diagnostic evaluation Time: Approximately 50 minutes was spent in therapy. Parties Present: Patient Patient Presentation/Concerns: INITIAL VISIT Pt born in [place] middle of 6 sibs... grew up w mom... father was a drunk and Aunt... didnt know he was dad until 14yo ETOH and Drugs and 3mo at most holding a job ... 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 Progressing satisfactorily. TREATMENT PLAN/GOALS: Continue in therapy focusing on self-care, interpersonal relationships, improving communication, affect management, self-esteem and neuropathy . Next appointment: as scheduled Karson Bass, PhD Referring Provider: MAXI SELF (HISTORICAL) [[id number]] Allergies As of Date: 10/14/2020 Noted Allergy [...] PSORIASIS-----scalp [L4 (more content not included)... Normal [facility] Lab Report: Basic Metabolic Profile (BMP)on 11-12-2016 Anion gap 4 mmol/L Low 5-15 [facility] Work Phone: BUN/Creatinine Ratio 9.2 RATIO Low 10-20 [facility] Work Phone: Calcium 8.6 mg/dL Invalid Interpretation Code 8.5-10.1 [facility] Work Phone: Chloride 107 mmol/L Invalid Interpretation Code 98-107 [facility] Work Phone: CO2 29.0 mmol/L Invalid Interpretation Code 21.0-32.0 [facility] Work Phone: Creatinine 0.98 mg/dL Invalid Interpretation Code 0.70-1.30 [facility] Work Phone: eGFR (non-black) 102 mL/min/{1.73_m2} Invalid Interpretation Code >60 [facility] Work Phone: eGFR (non-black) 84 mL/min/{1.73_m2} Invalid Interpretation Code >60 [facility] Work Phone: Glucose mass conc 156 mg/dL High 70-110 [facility] Work Phone: Potassium molar conc 4.4 mmol/L Invalid Interpretation Code 3.5-5.1 [facility] Work Phone: Sodium 140 mmol/L Invalid Interpretation Code 136-145 [facility] Work Phone: Urea nitrogen 9 mg/dL Invalid Interpretation Code 7-18 [facility] Work Phone: Lab Report: Hemoglobin A1con 11-12-2016 Hemoglobin A1c/Hemoglobin.total mass fraction (Bld) 7.9 % High 4.2-6.3 [facility] Work Phone: Lab Report: Lipid Profileon 11-12-2016 Cholesterol 212 mg/dL High 200 [facility] Work Phone: HDL Cholesterol 55 mg/dL Invalid Interpretation Code [facility] Work Phone: LDL Cholesterol 130 mg/dL Invalid Interpretation Code 0-130 [facility] Work Phone: Triglyceride 133 mg/dL Invalid Interpretation Code [facility] Work Phone: very low density lipoproteins 27 mg/dL Invalid Interpretation Code 5-40 [facility] Work Phone: Lab Report: Liver Profileon 11-12-2016 Alanine aminotransferase (ALT) 24 U/L Invalid Interpretation Code 12-78 [facility] Work Phone: Albumin 3.7 g/dL Invalid Interpretation Code 3.4-5.0 [facility] Work Phone: Alkaline phosphatase (ALP) 63 U/L Invalid Interpretation Code 45-117 [facility] Work Phone: Aspartate aminotransferase (AST) 15 U/L Invalid Interpretation Code 15-37 [facility] Work Phone: Bilirubin (direct) 0.18 mg/dL Invalid Interpretation Code 0.00-0.30 [facility] Work Phone: Bilirubin (total) 0.60 mg/dL Invalid Interpretation Code 0.20-1.00 [facility] Work Phone: Globulin 3.2 g/dL Invalid Interpretation Code 2.3-3.5 [facility] Work Phone: Protein 6.9 g/dL Invalid Interpretation Code 6.4-8.2 [facility] Work Phone: Office Visit: Diabetes Follo w Upon 11-10-2016 Documentation of current medications (procedure) Done Invalid Interpretation Code [facility] Work Phone: Office Visiton 10-06-2016 Fall risk assessment Fall risk assessment Invali d Interpretation Code [facility] Work Phone: Clinical Lists Update: Prelo automatic blocker 09-30-2016 Left ventricular Ejection fraction 55 % Invalid Interpretation Code [facility] Work Phone: Office Visit: Follow up: Joslyn olfton 08-11-2016 Dietary management education, guidance, and counseling (procedure) yes Invalid Interpretation Code [facility] Work Phone: Tobacco smoking status NHIS Never Invalid Interpretation Code [facility] Work Phone: Tobacco use CPHS Former smoker Invalid Interpretation Code [facility] Work Phone: Lab Report: Quantiferon TB-G oldon 06-26-2016 QFT TB GOLD Positive High Negative [facility] Work Phone: QFT TB INTER Comment Invalid Interpretation Code . [facility] Work Phone: Lab Report: Comprehensive Me tabolic Profilon 06-18-2016 Albumin/Globulin Ratio 1.2 {ratio} Invalid Interpretation Code 0.9-2.4 [facility] Work Phone: Lab Report: Microalb:Creat R atio,Random URon 06-18-2016 ACR (microalbumin/creati nine) ratio 16.5 MG/G CRE Invalid Interpretation Code <30 mg/g CRE [facility] Work Phone: Urine, creatinine 234.00 mg/dL Invalid Interpretation Code NO RANGE EST. [facility] Work Phone: Urine, microalbumin 3.87 mg/dL Invalid Interpretation Code Units converted. See lab report for original value. [facility] Work Phone: Chart Maintenanceon 05-21-19 17 Urine, microalbumin 38.7 mg/L Invalid Interpretation Code [facility] Work Phone: Office Visit: [facility] 05-11-2016 Adolescent depression screening assessment Adolescent depression screening assessment Invalid Interpretation Code [facility] Work Phone: Adult depression screening assessment Adult depression screening assessment Invalid Interpretation Code [facility] Work Phone: Fall risk assessment No Invalid Interpretation Code [facility] Work Phone: Lab Report: PSA,Total - Magy al Screenon 10-08-2014 PSA,TOT SCREEN 0.19 ng/mL Invalid Interpretation Code 0.00-4.00 [facility] Work Phone: Lab Report: Thyroid Stim Hor olayinka (TSH)on 10-08-2014 Thyroid stimulating hormone (TSH) 0.90 u[iU]/mL Invalid Interpretation Code 0.358-3.74 [facility] Work Phone: Office Visit: [facility] 03-13-19 15 cardiac risk group C Invalid Interpretation Code [facility] Work Phone: General cardiovascular disease 10Y risk [#] [place].D'Agostin o N/A Invalid Interpretation Code [facility] Work Phone: Replaced Document: Justyn Mendoza CG Observationson 03-13-2014 EKG QRS axis 13 deg Invalid Interpretation Code [facility] Work Phone: Interpretation Sinus Rhythm WITHIN NORMAL LIMITS Invalid Interpretation Code [facility] Work Phone: P [place] 60 deg Invalid Interpretation Code [facility] Work Phone: [place] Interval 122 ms Invalid Interpretation Code [facility] Work Phone: Pulse (Heart Rate) 68 /min Invalid Interpretation Code [facility] Work Phone: QRS Duration 94 ms Invalid Interpretation Code [facility] Work Phone: QT Interval new path ms Invalid Interpretation Code [facility] Work Phone: T [place] -1 deg Invalid Interpretation Code [facility] Work Phone: Replaced Document: Justyn Mendoza CG Observationson 01-08-2013 Pulse (Heart Rate) 390 ms Invalid Interpretation Code [facility] Work Phone: Clinical Lists Update: Prelo automatic blocker 07-19-2011 basophils as percent of blood leukocytes, manual count 0.6 % Invalid Interpretation Code [facility] Work Phone: eosinophils as percent of blood leukocytes, manual count 2.0 % Invalid Interpretation Code [facility] Work Phone: Erythrocytes (RBC) 4.47 10*6/uL Low [facility] Work Phone: Hematocrit (HCT) 41.7 % Invalid Interpretation Code [facility] Work Phone: Hemoglobin mass conc (Bld) 14.6 g/dL Invalid Interpretation Code [facility] Work Phone: Lymphocytes/100 leukocytes 39.4 % Invalid Interpretation Code [facility] Work Phone: MCH 32.7 pg High [facility] Work Phone: MCV 93.2 fL Invalid Interpretation Code [facility] Work Phone: Monocytes/100 leukocytes 12.7 % High [facility] Work Phone: neutrophils, band form as percent of blood leukocytes, manual count 45.3 % Low [facility] Work Phone: Platelets 169 10*3/mm3 Invalid Interpretation Code [facility] Work Phone: WBC (Leukocytes) 5.5 10*3/uL Invalid Interpretation Code [facility] Work Phone: Vital Signs Date Time Vital Sign Value Performing Clinician Facility 10-18-2024 09:37-0400 Body height 185.[address] Solis Harrington DO Work Phone: [facility] 10-18-2024 09:37-0400 Body mass index (BMI) [Ratio] 27.7 kg/m2 Dr. Solis Harrington DO Work Phone: [facility] 10-18-2024 09:37-0400 Body weight 95.[address] Solis Harrington DO Work Phone: [facility] 10-18-2024 09:37-0400 Diastolic blood pressure 82 mm[Hg] Dr. Solis Harrington DO Work Phone: [facility] 10-18-2024 09:37-0400 Heart rate 71 /min Dr. Solis Harrington DO Work Phone: [facility] 10-18-2024 09:37-0400 SaO2% (BldA) [Mass fraction] 96 % Dr. Solis Harrington DO Work Phone: [facility] 10-18-2024 09:37-0400 Systolic blood pressure 162 mm[Hg] Dr. Solis Harrington DO Work Phone: [facility] 03-31-2023 15:15-0500 Body height 185.[address] Solis Harrington Work Phone: [facility] 03-31-2023 15:15-0500 Body mass index (BMI) [Ratio] 29.1 kg/m2 Dr. Solis Harrington Work Phone: [facility] 03-31-2023 15:15-0500 Body weight 100.[address] Solis Harrington Work Phone: [facility] 03-31-2023 15:15-0500 Diastolic blood pressure 74 mm[Hg] Dr. Solis Harrington Work Phone: [facility] 03-31-2023 15:15-0500 Heart rate 75 /min Dr. Solis Harrington Work Phone: [facility] 03-31-2023 15:15-0500 Respiratory rate 18 /min Dr. Solis Harrington Work Phone: [facility] 03-31-2023 15:15-0500 SaO2% (BldA) [Mass fraction] 93 % Dr. Solis Harrington Work Phone: [facility] 03-31-2023 15:15-0500 Systolic blood pressure 130 mm[Hg] Dr. Solis Harrington Work Phone: [facility] 08-15-2022 15:23-0400 Body height 185.[address] Solis Harrington Work Phone: [facility] 08-15-2022 15:23-0400 Body mass index (BMI) [Ratio] 28.6 kg/m2 Dr. Solis Harrington Work Phone: [facility] 08-15-2022 15:23-0400 Body temperature 98.2 [degF] Dr. Solis Harrington Work Phone: [facility] 08-15-2022 15:23-0400 Body weight 98.[address] Solis Harrington Work Phone: [facility] 08-15-2022 15:23-0400 Diastolic blood pressure 78 mm[Hg] Dr. Solis Harrington Work Phone: [facility] 08-15-2022 15:23-0400 Heart rate 70 /min Dr. Solis Harrington Work Phone: [facility] 08-15-2022 15:23-0400 Respiratory rate 16 /min Dr. Solis Harrington Work Phone: [facility] 08-15-2022 15:23-0400 SaO2% (BldA) [Mass fraction] 98 % Dr. Solis Harrington Work Phone: [facility] 08-15-2022 15:23-0400 Systolic blood pressure 140 mm[Hg] Dr. Solis Harrington Work Phone: [facility] 02-07-2022 15:21-0500 Body height 185.[address] Solis Harrington Work Phone: [facility] Work Phone: 02-07-2022 15:21-0500 Body mass index (BMI) [Ratio] 29.9 kg/m2 Dr. Solis Harrington Work Phone: [facility] Work Phone: 02-07-2022 15:21-0500 Body temperature 94.9 [degF] Dr. Solis Harrington Work Phone: [facility] Work Phone: 02-07-2022 15:21-0500 Body weight 102.[address] Solis Harrington Work Phone: [facility] Work Phone: 02-07-2022 15:21-0500 Diastolic blood pressure 77 mm[Hg] Dr. Solis Harrington Work Phone: [facility] Work Phone: 02-07-2022 15:21-0500 Heart rate 80 /min Dr. Solis Harrington Work Phone: [facility] Work Phone: 02-07-2022 15:21-0500 Respiratory rate 18 /min Dr. Solis Harrington Work Phone: [facility] Work Phone: 02-07-2022 15:21-0500 SaO2% (BldA) [Mass fraction] 96 % Dr. Solis Harrington Work Phone: [facility] Work Phone: 02-07-2022 15:21-0500 Systolic blood pressure 149 mm[Hg] Dr. Solis Harrington Work Phone: [facility] Work Phone: 09-30-2021 15:55-0400 Body height 185.[address] Solis Harrington Work Phone: [facility] Work Phone: 09-30-2021 15:55-0400 Body mass index (BMI) [Ratio] 28.8 kg/m2 Dr. Solis Harrington Work Phone: [facility] Work Phone: 09-30-2021 15:55-0400 Body weight 98.[address] Solis Harrington Work Phone: [facility] Work Phone: 09-30-2021 15:55-0400 Diastolic blood pressure 75 mm[Hg] Dr. Solis Harrington Work Phone: [facility] Work Phone: 09-30-2021 15:55-0400 Heart rate 76 /min Dr. Solis Harrington Work Phone: [facility] Work Phone: 09-30-2021 15:55-0400 Respiratory rate 16 /min Dr. Solis Harrington Work Phone: [facility] Work Phone: 09-30-2021 15:55-0400 SaO2% (BldA) [Mass fraction] 97 % Dr. Solis Harrington Work Phone: [facility] Work Phone: 09-30-2021 15:55-0400 Systolic blood pressure 126 mm[Hg] Dr. Solis Harrington Work Phone: [facility] Work Phone: 11-10-2016 08:11-0400 BMI (Body Mass Index) 31 kg/m2 Sherif Gaitan NP [facility] Work Phone: 11-10-2016 08:11-0400 Body Temperature 97.9 [degF] Sherif Gaitan [employer]OSTATIC [employer]ING [employer] [facility] Work Phone: 11-10-2016 08:11-0400 BP Diastolic 81 mm[Hg] Sherif Gaitan [employer]OSTATIC [employer] [facility] Work Phone: 11-10-2016 08:11-0400 BP Systolic 158 mm[Hg] Sherif Gaitan NP [facility] Work Phone: 11-10-2016 08:11-0400 Height 182.88 cm Sherif Gaitan HYDROSTATIC [employer]ING [employer] [facility] Work Phone: 11-10-2016 08:11-0400 Pulse (Heart Rate) 54 /min Sherif Gaitan [employer]OSTATIC [employer]ING [employer] [facility] Work Phone: 11-10-2016 08:11-0400 Respiratory Rate 20 /min Sherif Gaitan NP [facility] Work Phone: 11-10-2016 08:11-0400 Weight 103.69 kg Sherif Gaitan HYDROSTATIC [employer]ING [employer] [facility] Work Phone: 08-11-2016 15:08-0400 BP Diastolic 84 mm[Hg] Sherif Gaitan NP [facility] Work Phone: 08-11-2016 15:08-0400 BP Systolic 136 mm[Hg] Sherif Gaitan NP [facility] Work Phone: 05-11-2016 15:17-0500 Body Temperature 98.01 [degF] Sherif Gaitan HYDROSTATIC TUBING TE[employer] [facility] Work Phone: 05-11-2016 15:17-0500 Height 182.88 cm Sherif Gaitan HYDROSTATIC TUBING TE[employer] [facility] Work Phone: 05-11-2016 15:17-0500 Weight 100.15 kg Sherif Gaitan HYDROSTATIC T[employer]ING TE[employer] [facility] Work Phone: 03-22-2016 13:30-0500 BSA (Body Surface Area) 2.31 m2 Sherif Gaitan [employer]OSTATIC [employer] [facility] Work Phone: Encounters Encounter Date Encounter Type Care Provider Facility Start: 01-10-2025 ambulatory Solis Harrington Facility: [facility] Start: 10-18-2024 End: 10-18-[address] Lei Vasquez MD -[facility] Work Phone: Start: 10-18-2024 End: 10-18-[address] Solis Harrington DO Work Phone: -[facility] Start: 06-21-2024 End: 06-21-2024 Patient encounter procedure Patty Mcmahan HYDROSTATIC TUBING TESTER-[facility] -[facility] Work Phone: Start: 06-21-2024 End: 06-21-2024 ambulatory Patty Mcmahan Facility:[facility] Start: 06-14-2024 End: 06-14-2024 ambulatory Patty Mcmahan Facility:[facility] Start: 04-05-2024 End: 04-05-2024 ambulatory Lei Vasquez Facility:[facility] Start: 12-22-2023 End: 12-22-2023 ambulatory CLAIR GERMAN MD Facility:[facility] Start: 12-22-2023 End: 12-22-2023 Patient encounter procedure CLAIR GERMAN MD [facility] Start: 04-13-2023 End: 04-13-[address] Solis Harrington Work Phone: [facility] Work Phone: Start: 04-13-2023 End: 04-13-[address] Solis Harrington Work Phone: [facility] Work Phone: Start: 03-31-2023 End: 03-31-[address] Solis Harrington Work Phone: [facility] Work Phone: Start: 01-03-2023 End: 01-03-[address] Solis Harrington Work Phone: [facility] Work Phone: Start: 11-24-2022 End: 11-24-[address] Solis Harrington Work Phone: [facility] Work Phone: Start: 11-24-2022 End: 11-24-[address] [facility] Start: 10-26-2022 End: 10-26-[address] Solis Harrington Work Phone: [facility] Work Phone: Start: 10-26-2022 End: 10-26-[address] Solis Harrington Work Phone: [facility] [facility] Work Phone: Start: 09-26-2022 End: 09-26-[address] Solis Harrington Work Phone: [facility] Work Phone: Start: 08-15-2022 End: 08-15-[address] Solis Harrington Work Phone: [facility] Work Phone: Start: 08-12-2022 End: 08-12-[address] Solis Harrington Work Phone: [facility] Work Phone: Start: 02-16-2022 End: 02-16-[address] Solis Harrington Work Phone: [facility] Work Phone: Start: 02-16-2022 End: 02-16-[address] Solis Harrington Work Phone: [facility] Start: 02-07-2022 End: 02-07-[address] Solis Harrington Work Phone: [facility] Start: 12-02-2021 Non-patient / Non-visit Dr. Slois Harrington Work Phone: [facility] Start: 12-02-2021 End: 12-02-[address] Solis Harrington Work Phone: [facility] Work Phone: Start: 12-02-2021 End: 12-02-[address] Solis Harrington Work Phone: [facility]-Cardiovascular Services Start: 11-30-2021 End: 11-30-[address] Solis Harrington Work Phone: [facility] Work Phone: Start: 11-30-2021 End: 11-30-[address] Solis Harrington Work Phone: [facility] Start: 11-25-2021 End: 11-25-[address] Solis Harrington Work Phone: [facility] Work Phone: Start: 11-25-2021 End: 11-25-[address] Solis Harrington Work Phone: [facility]-Pulmonary Services/Neurology Start: 11-25-2021 Non-patient / Non-visit Dr. Solis Harrington Work Phone: [facility] Start: 09-30-2021 End: 09-30-[address] Solis Harrington Work Phone: [facility] Procedures Date Procedure Procedure Detail Performing Clinician Start: 01-03-2023 Plain chest X-ray Dr. Solis Harrington Work Phone: Start: 10-26-2022 X-ray of lumbar spine, two or three views Dr. Solis Harrington Work Phone: Start: 12-02-2021 Radionuclide imaging of perfusion of myocardium under exercise stress Dr. Solis Harrington Work Phone: Start: 08-11-2016 End: 11-12-2016 *CMP Complete Metabolic Panel Sherif li HYDROSTATIC TUBING TESTER Work Phone: Start: 08-11-2016 End: 11-12-2016 Hemoglobin A1c/Hemoglobin.total in Blood Sherif Gaitan NP Work Phone: Start: 05-11-2016 End: 06-18-2016 *CMP Complete Metabolic Panel Sherif li HYDROSTATIC TUBING TESTER Work Phone: Start: 05-11-2016 End: 06-18-2016 *Microalbumin, Creatine Ratio, rand urine Sherif Gaitan HYDROSTATIC TUBING TESTER Work Phone: Start: 05-11-2016 End: 06-18-2016 Hemoglobin A1c/Hemoglobin.total in Blood Sherif Gaitan NP Work Phone: Start: 05-11-2016 End: 06-18-2016 Lipid 1996 panel - Serum or Plasma Moise Gaitan HYDROSTATIC TUBING TESTER Work Phone: Start: 03-22-2016 End: 03-22-2016 INTERACTIVE DEVELOPER Dana Miguel PA-C Work Phone: Start: 03-22-2016 End: 03-22-2016 Follow Up Appt 6 months Dana Miguel PA-C Work Phone: Start: 09-15-2015 End: 03-22-2016 Follow Up Appt 6 months [facility] Start: 09-15-2015 End: 03-22-2016 TIN Smith MD Start: 09-08-2015 End: 09-14-2015 *Hepatic Function Panel [facility] Start: 09-08-2015 End: 09-14-2015 Lipid 1996 panel - Serum or Plasma Clyde Smith MD Start: 03-10-2015 End: 03-22-2016 *BMP Dana Miguel PA-C Work Phone: Start: 03-10-2015 End: 03-22-2016 Arterial exam Dana Miguel PA-C Work Phone: Start: 03-10-2015 End: 03-10-2015 INTERACTIVE DEVELOPER Dana Miguel PA-C Work Phone: Start: 03-10-2015 End: 03-10-2015 Follow Up Appt 6 months Dana Miguel PA-C Work Phone: Start: 03-10-2015 End: 03-23-2015 Nuclear stress test -[facility] Dana Miguel PA-C Work Phone: Start: 10-14-2014 [...] PA-C Work Phone: Start: 03-13-2014 End: 02-25-2015 INTERACTIVE DEVELOPER Dana Miguel PA-C Work Phone: Start: 03-13-2014 End: [...] Clyde Smith MD Start: 08-13-2013 End: 08-13-2013 MMM Clyde Smith MD Start: 01-08-2013 End: 01-08-2013 INTERACTIVE DEVELOPER Dana Miguel PA-C Work Phone: Start: 01-08-2013 [...] Author Start: 10-06-2017 End: 10-06-2017 Appointment Appointment [facility] Work Phone: Start: 11-22-2016 End: 11-22-2016 *Hepatic Function Panel *Hepatic Function Panel [facility] Work Phone: Start: 11-22-2016 End: 11-22-2016 Lipid panel [AGGREGATE] *Lipid Profile [facility] Work Phone: Start: 10-06-2016 End: 10-06-2016 Follow Up Appt 1 year Follow Up Appt 1 year [facility] Work Phone: Start: 10-06-2016 End: 10-06-2016 MMM MMM [facility] Work Phone: Start: 09-13-2016 End: 09-16-2015 *Hepatic Function Panel *Hepatic Function Panel [facility] Work Phone: Start: 09-13-2016 End: 09-16-2015 Lipid panel [AGGREGATE] *Lipid Profile CC PCP [facility] Work Phone: Start: 08-11-2016 End: 11-12-2016 *CMP Complete Metabolic Panel *CMP Complete Metabolic Panel [facility] Work Phone: Start: 08-11-2016 End: 11-12-2016 Hemoglobin A1c/Hemoglobin.total mass fraction (Bld) *HgA1C [facility] Work Phone: Start: 05-11-2016 End: 06-18-2016 *CMP Complete Metabolic Panel *CMP Complete Metabolic Panel [facility] Work Phone: Start: 05-11-2016 End: 06-18-2016 *Microalbumin, Creatine Ratio, rand urine *Microalbumin, Creatine Ratio, rand urine [facility] Work Phone: Start: 05-11-2016 End: 06-18-2016 Hemoglobin A1c/Hemoglobin.total mass fraction (Bld) *HgA1C [facility] Work Phone: Start: 05-11-2016 End: 06-18-2016 Lipid panel [AGGREGATE] *Lipid Profile [facility] Work Phone: Start: 03-22-2016 End: 03-22-2016 INTERACTIVE DEVELOPER INTERACTIVE DEVELOPER [facility] Work Phone: Start: 03-22-2016 End: 03-22-2016 Follow Up Appt 6 months Follow Up Appt 6 months [facility] Work Phone: Start: 09-15-2015 End: 03-22-2016 Follow Up Appt 6 months Follow Up Appt 6 months [facility] Work Phone: Start: 09-15-2015 End: 03-22-2016 MMM MMM [facility] Work Phone: Start: 09-08-2015 End: 09-14-2015 *Hepatic Function Panel *Hepatic Function Panel [facility] Work Phone: Start: 09-08-2015 End: 09-14-2015 Lipid panel [AGGREGATE] *Lipid Profile CC PCP [facility] Work Phone: Start: 03-10-2015 End: 03-22-2016 *BMP *BMP [facility] Work Phone: Start: 03-10-2015 End: 03-10-2015 Arterial exam Arterial exam [facility] Work Phone: Start: 03-10-2015 End: 03-10-2015 INTERACTIVE DEVELOPER INTERACTIVE DEVELOPER [facility] Work Phone: Start: 03-10-2015 End: 03-10-2015 Follow Up Appt 6 months Follow Up Appt 6 months [facility] Work Phone: Start: 03-10-2015 End: 03-10-2015 Nuclear stress test -[facility] Nuclear stress test -[facility] Work Phone: Start: 10-14-2014 End: 03-10-2015 *Hepatic Function Panel *Hepatic Function Panel [facility] Work Phone: Start: 10-14-2014 End: 03-10-2015 Lipid panel [AGGREGATE] *Lipid Profile CC PCP [facility] Work Phone: Start: 09-02-2014 End: 09-02-2014 Follow Up Appt 6 months Follow Up Appt 6 months [facility] Work Phone: Start: 09-02-2014 End: 09-02-2014 MMM MMM [facility] Work Phone: Start: 07-03-2014 End: 09-01-2014 *Hepatic Function Panel *Hepatic Function Panel [facility] Work Phone: Start: 07-03-2014 End: 09-01-2014 Lipid panel [AGGREGATE] *Lipid Profile CC PCP [facility] Work Phone: Start: 03-13-2014 End: 02-25-2015 INTERACTIVE DEVELOPER INTERACTIVE DEVELOPER [facility] Work Phone: Start: 03-13-2014 End: 02-25-2015 Follow Up Appt 6 months Follow Up Appt 6 months [facility] Work Phone: Start: 02-03-2014 End: 02-14-2014 *Hepatic Function Panel *Hepatic Function Panel [facility] Work Phone: Start: 02-03-2014 End: 02-14-2014 Lipid panel [AGGREGATE] *Lipid Profile CC PCP [facility] Work Phone: Start: 08-13-2013 End: 09-02-2013 *Hepatic Function Panel *Hepatic Function Panel [facility] Work Phone: Start: 08-13-2013 End: 08-13-2013 Follow Up Appt 6 months Follow Up Appt 6 months [facility] Work Phone: Start: 08-13-2013 End: 09-02-2013 Lipid panel [AGGREGATE] *Lipid Profile CC PCP [facility] Work Phone: Start: 08-13-2013 End: 08-13-2013 MMM MMM [facility] Work Phone: Start: 01-08-2013 End: 01-08-2013 INTERACTIVE DEVELOPER INTERACTIVE DEVELOPER [facility] Work Phone: Start: 01-08-2013 End: 01-08-2013 Ecg routine ecg w/least 12 lds w/i&r EKG (In office) [facility] Work Phone: Start: 01-08-2013 End: 01-08-2013 Follow Up Appt 6 months Follow Up Appt 6 months [facility] Work Phone: Start: 07-05-2012 End: 07-05-2012 Follow Up Appt 6 months Follow Up Appt 6 months [facility] Work Phone: Start: 07-05-2012 End: 01-08-2013 Lipid panel [AGGREGATE] *Lipid Profile [facility] Work Phone: Start: 07-05-2012 End: 07-05-2012 MMM MMM [facility] Work Phone: Start: 07-04-2011 End: 07-04-2011 Follow Up Appt 1 year Follow Up Appt 1 year [facility] Work Phone: Lipid 1996 panel - Serum or Plasma [facility] Patient Education [facility] Work Phone: Radionuclide imaging of perfusion of myocardium under exercise stress [facility] Work Phone: [facility] Payers Date Payer Category Payer Self-pay [id number] 2023 Unknown [id number] 1960 Unknown [id number] [id number] Unknown [id number] [id number] [id number] Unknown [id number] [id number] Unknown [id number] [id number] [id number] Unknown [id number] [id number] [id number] Unknown [id number] [id number] [id number] Social History Date Type Detail Facility Start: 09-30-2021 End: 03-31-2023 Tobacco smoking status NYIS Unknown if ever smoked [facility] Start: 1960 Sex Assigned At Male W [facility] Start: 11-07-2018 End: 05-02-2023 Tobacco smoking status Ex-smoker (finding) [facility] Clinical Note 12-22-2023 Note Date & Type [...] Sign Date: 12/22/2023 3:31:43 PM Ordering Provider: [facility] Progress note 10-14-2020 Note Date & Type Note Facility 10-14-2020 Note HNO ID: [id number] Author: Karson Bass, PhD Service: ? Author Type: Psychologist Type: Progress Notes Filed: 10/14/2020 12:59 PM Note Text: [facility] Progress Note Caroline Caban Justice 10/14/2020 [id number] Provider: Karson Bass, PhD CPT Code: 80678 Psychiatric diagnostic evaluation Time: Approximately 50 minutes was spent in therapy. Parties Present: Patient Patient Presentation/Concerns: INITIAL VISIT Pt born in [place] middle of 6 sibs... grew up w mom... father was a drunk and Aunt... didnt know he was dad until 14yo ETOH and Drugs and 3mo at most holding a job ... 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 Progressing satisfactorily. TREATMENT PLAN/GOALS: Continue in therapy focusing on self-care, interpersonal relationships, improving communication, affect management, self-esteem and neuropathy . Next appointment: as scheduled Karson Bass PhD [facility] Evaluation note 06-23-2003 Note Date & Type Note Facility 06-23-2003 Evaluation note Diagnosis Onset Date Essential (primary) hypertension chronic Hyperlipidemia chronic History of coronary artery stent placement June 23, 2003 [facility] Work Phone: Evaluation + Plan note Note Date & Type Note Facility Evaluation + Plan note No data available for this section [facility] Evaluation note Note Date & Type Note Facility Evaluation note Diagnosis Onset Date Essential (primary) hypertension chronic Hyperlipidemia chronic Overweight (BMI 25.0-29.9) c hronic Type 2 diabetes mellitus [facility] Work Phone: Evaluation note Note Date & Type Note Facility Evaluation note Diagnosis Onset Date Atherosclerosis of coronary artery of [place]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 Essential (primary) hypertension chronic Hyperlipidemia chronic Overweight (BMI 25.0-29.9) c hronic Type 2 diabetes mellitus [facility] Work Phone: Evaluation note Note Date & Type Note Facility Evaluation note No assessment information availa calin [facility] Work Phone: Hospital Discharge instructions Note Date & Type Note Facility Hospital Discharge instructions No data available for this section [facility] Progress note Note Date & Type Note Facility Progress note No data available for this section [facility] Reason for referral (narrative) Note Date & Type Note Facility Reason for referral (narrative) No reason for referral information available [place] [facility] Work Phone: Summary Purpose Family History No [...] August 11, 2016 9 :28am Power of Cone Trucker No August 11, 2016 9:28am Advance Directive Response Recorded Date/ Time Living Will No August 11, 2016 8 :28am Power of Cone Trucker No August 11, 2016 8:28am Chief Complaint [...] section and content) DATE CREATED AUTHOR 04/09/2021 [facility] DATE CREATED AUTHOR AUTHOR'S ORGANIZ ATION 12/25/2023 [facility] DATE CREATED AUTHOR AUTHOR'S ORGANIZ ATION 01/15/2025 [facility] Goals (unrecognized section and content) Goals may [...] Provider, Referrin g Provider Active Patty Mcmahan HYDROSTATIC TUBING TESTER, HYDROSTATIC TUBING TESTER-C Attending Provider Active Team Status: Active Member Role/Relationship Status Dates Dr. Solis Harrington DO Primary Care Provider Active Team Status: Inactive Member Role/Relationship Status Dates Dr. Solis Harrington DO Primary Care Provider Active Start: June 21, 2024 End: June 21, 2024 Patty Mcmahan HYDROSTATIC TUBING TESTER, HYDROSTATIC TUBING TESTER-C Attending Provider Active Start: June 21, 2024 End: June 21, 2024 Patty Mcmahan HYDROSTATIC TUBING TESTER, HYDROSTATIC TUBING TESTER-C Referring Provider Active Start: June 21, 2024 [...] BE BASED ON THE PRIMARY CLINICAL RECORDS. [employer] provides no warranty or guarantee of the accuracy or completeness of information in this document.
[2025-02-08 12:03] LABS: Hematocrit 38.7 % (40-54); Hemoglobin 13.0 g/dL (13.0-16.5); Immature Granulocytes Count 0.010 X10^3/uL (0.0-0.0); Mean Corp Hgb Conc 33.6 g/dL (32-36); Mean Corpuscular Volume 92.6 fL (80-94); Mean Platelet Vol. 8.9 fl (6.2-12.0); NRBC Flagged by Analyzer 0 % (0-5); Platelet Count 229 K/mm3 (150-450); RBC Distribution Width CV 12.6 % (11.6-14.6); RBC Distribution Width SD 43.0 fl (35.1-43.9); Red Blood Count 4.18 M/mm3 (4.6-6.2); White Blood Count 5.1 K/mm3 (4.4-11.0)
== END | disposition home or self-care (01) ==
LOC: LAB 11:44
PROVIDERS: PCP Family Medicine; Referring Provider Internal Medicine Rheumatology; Visit Provider Internal Medicine Rheumatology
DX: M19.042 Primary osteoarthritis, left hand (principal)
CPT/HCPCS: 36415; 85025